=== PATIENT | male | born 1965 | race African-American/Black ===

== ENCOUNTER 2017-07-03 09:03 | Inpatient (IN) | payer OTHER ==
[2017-07-03] VITALS (40 sets, daily range): BP systolic 69–134; BP diastolic 44–75
[~2017-07-03] VITALS: Ht 182.9 cm; Wt 84.4 kg
--- NOTE | 2017-07-03 09:05 | NUR ---
[id number] [place] [address] [place] [address] FOR AMS. BS-[id number]. PATIENT IS NOT ALERT, RESPONDS TO PAINFUL STIMULI. BREATHING TACHYPNIC, ON NON-REBREATHER, 15L OXYGEN. SAFETY AND COMFORT MEASURES IN PLACE. AWAITING MD ORDERS.
--- NOTE | 2017-07-03 09:15 | NUR ---
NEW IV STARTED ON RIGHT HAND, 20G.
--- NOTE | 2017-07-03 09:20 | NUR ---
LOT BOSS AT BEDSIDE FOR BLOOD DRAW.
--- NOTE | 2017-07-03 09:25 | NUR ---
PER DR. PINTO, GIVE 2500ML IV NS. NS STARTED ON RIGHT HAND, 20G. IVPB, END TIME ESTIMATED 1155.
[2017-07-03 09:41] LABS: BASOPHILS % (AUTO) 0.2 % (0.0-2.0); HEMATOCRIT 30 % (39-51); HEMOGLOBIN 9.8 g/dL (13.5-17.5); LYMPHOCYTES % (AUTO) 8.4 % (20.0-44.0); MEAN CORPUSCULAR HGB CONC 33 g/dl (31.0-36.0); MEAN CORPUSCULAR VOLUME 87 fL (80-96); MONOCYTES # (AUTO) 0.5 /CMM (0.1-1.30); MONOCYTES % (AUTO) 4.5 % (2.0-12.0); NEUTROPHILS # (AUTO) 10.5 /CMM (1.8-8.9); NEUTROPHILS % (AUTO) 86.9 % (43.0-81.0); PLATELET COUNT (AUTO) 414 /CMM (150-450); RDW COEFFICIENT OF VARIATION 18.4 (11.5-15.0); RED BLOOD CELL COUNT(AUTO) 3.43 MIL/uL (4.5-6.0); WHITE BLOOD COUNT (AUTO) 12.1 K/uL (4.3-11.0)
[2017-07-03 09:51] LABS: CALCIUM, SERUM 8.9 mg/dL (8.5-10.1); CARBON DIOXIDE 26 mmol/L (21-32); CHLORIDE 103 mmol/L (98-107); GLUCOSE 177 mg/dL (74-106); SODIUM SERUM 139 mmol/L (136-145); UREA NITROGEN, BLOOD 38 mg/dL (7-18)
--- NOTE | 2017-07-03 09:55 | NUR ---
16 FR wylie catheter inserted per sterile protocal. Immediate output 225 ML of urine, donnell and clear.
[2017-07-03 09:56] LABS: ALANINE AMINOTRANSFERASE < 6 U/L (12-78); ALBUMIN 1.6 g/dL (3.4-5.0); ALKALINE PHOSPHATASE 83 U/L (46-116); ASPARTATE AMINOTRANSFERASE 15 U/L (15-37); BILIRUBIN,DIRECT 0.5 mg/dL (0.0-0.2); BILIRUBIN,TOTAL 1.3 mg/dL (0.2-1.0); TOTAL PROTEIN, SERUM 8.3 g/dL (6.4-8.2)
--- NOTE | 2017-07-03 09:56 | NUR ---
pbx technician at bedside
[2017-07-03 09:58] LABS: TROPONIN I < 0.017 ng/mL (0.00-0.056)
[2017-07-03 10:02] LABS: BAND % (MANUAL) 14 % (0.0-5.0); MONOCYTES % (MANUAL) 3 % (0-11.0)
[2017-07-03 10:03] LABS: INR 1.11 (0.87-1.13); LYMPHOCYTES % (MANUAL) 13 % (16-48); NEUTROPHILS % (MANUAL) 70 (42-76)
--- NOTE | 2017-07-03 10:06 | NUR ---
PATIENT TAKEN TO CT VIA STRETCHER.
[2017-07-03 10:10] LABS: APPEARANCE,URINE Clear (CLEAR); BILIRUBIN,URINE MODERATE (NEGATIVE); BLOOD, URINE Trace-lysed Ery/uL (NEGATIVE); COLOR,URINE Dark (YELLOW); KETONES,URINE Trace (NEGATIVE); LEUKOCYTE ESTERASE ,URINE Negative (NEGATIVE); NITRITE, URINE Negative (NEGATIVE); PH,URINE 5.5 (5.0-8.0); PROTEIN,URINE 100 mg/dl (NEGATIVE); UGLUCOSE Negative (NEGATIVE)
--- NOTE | 2017-07-03 10:17 | NUR ---
PATIENT RETURNED FROM CT IN SCAN IN STABLE CONDITION.
[2017-07-03 10:21] LABS: BACTERIA,URINE Rare /HPF (None Seen); RBC,URINE 0-2 /HPF (0-2); SQUAMOUS EPITHELIAL CELL,UR Few /HPF (None Seen); WBC,URINE 0-2 /HPF (0-3)
[2017-07-03] MEDS ORDERED: IV NS 0.9% 1,000 ML BAG IV ONE ×3 (10:30)
[2017-07-03] MEDS ORDERED: VANCOMYCIN 1 GM in IV D5W 250 ML IV ONE (10:30)
[2017-07-03] MEDS ORDERED: PIPERACILLIN /TAZOBACTAM 3.375 G in IV D5W 50 ML IV ONE (10:30)
[2017-07-03] MEDS ORDERED: ACETAMINOPHEN 650 MG/SUPP.RECT RC ONE ×2 (10:46→11:00)
[2017-07-03 11:20] LABS: ACETAMINOPHEN 0 ug/ml (10-30); SALICYLATE < 0.2 mg/dL (2.8-20.0)
--- NOTE | 2017-07-03 11:27 | NUR ---
CALLED NURSING MARBLE MECHANIC HELPER AND REQUESTED A BRUNA BED FOR THIS PT.
[2017-07-03] MEDS ORDERED: NALOXONE HCL 0.4 MG/ML AMPUL IV ONE (11:30)
--- NOTE | 2017-07-03 11:33 | NUR ---
CALLED [facility] FOR PANEL CALL AND BHARAT GARCIA WAS PAGED.
[2017-07-03] MEDS ORDERED: NALOXONE PREFILLED SYRINGE 2 MG/2 ML SYRINGE ONE (12:10)
--- NOTE | 2017-07-03 12:17 | NUR ---
CALLED NURSING SUP AND REQUESTED AN ICU BED
[2017-07-03] MEDS ORDERED: NOREPINEPHRINE 8 MG in IV D5W 500 ML IV PRN ×3 (12:30→19:35)
[2017-07-03 12:31] LABS: SERUM AMMONIA < 10 umol/L (11-32)
--- NOTE | 2017-07-03 12:31 | NUR ---
PT IS ASSIGNED TO ICU RM #: [id number], PT IS DIAGNOSED WITH SEPSIS, AND BHARAT GARCIA IS THE ACCEPTING DEVELOPMENT CHEMIST.
--- NOTE | 2017-07-03 12:42 | NUR ---
REPORT GIVEN TO KERRIE BAUTISTA FOR MANUEL UPON ADMISSION.
[2017-07-03 12:47] LABS: ABG BASE EXCESS -4.1 mmol/L; ABG OXYGEN SATURATION 94.4 % (92.0-98.5); ABG PCO2 23.3 mmHg (35.0-45.0); ABG PH 7.502 (7.350-7.450); ABG PO2 76.5 mmHg (75.0-100.0); AaDO2 325.7 mmHg; COHb 0.3 % (0.5-1.5); MetHb 0.5 % (0.0-1.5); O2Hb 93.6 % (94.0-97.0); SITE, ABG Left Brachial; VENT MODE, BG SIMPLE MASK
[2017-07-03] MEDS ORDERED: INSU100I30 SQ (12:58)
[2017-07-03] MEDS ORDERED: INSU100V27 SQ (12:58)
[2017-07-03] MEDS ORDERED: ATOR20TA PO (12:58)
[2017-07-03] MEDS ORDERED: CLOP75TA15 PO (12:58)
[2017-07-03] MEDS ORDERED: METF-442 PO (12:58)
[2017-07-03] MEDS ORDERED: QUET100T PO (12:58)
[2017-07-03] MEDS ORDERED: TRAM50TA2 PO (12:58)
[2017-07-03] MEDS ORDERED: ACET325C5 PO (12:58)
[2017-07-03] MEDS ORDERED: CARV6.25 PO (12:58)
[2017-07-03] MEDS ORDERED: DIVA500T4 PO (12:58)
[2017-07-03] MEDS ORDERED: GABA-532 PO (12:58)
[2017-07-03] MEDS ORDERED: MORPHINE SULFATE INJ 4 MG/ML DISP.SYRIN IV PRN (13:00)
[2017-07-03] MEDS ORDERED: FEE PK DOSING 1 MIN EA MC ONE (13:04)
--- NOTE | 2017-07-03 13:10 | NUR ---
PATIENT ADMITTED FROM ER WITH DIAGNOSIS OF SEVERE SEPSIS, ACUTE RESPIRATORY DISTRESS. PATIENT AWAKE, FOLLOWS SIMPLE COMMANDS , MUMBLES WORDS. 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 O2 AT 10 L SM-SPO2 >94%.PATIENT SEEN AND EVALUATED BY BHARAT GARCIA ADMITTING [facility]. PATIENT SEEN AND EVALUATED BY DR. BRIGHT, ABG RESULTS FROM ER NOTED BY MD-PER -SURINDER TO KEEP PATIENT ON 10 L SM.
--- NOTE | 2017-07-03 13:10 | NUR ---
PATIENT TRANSPORTED TO ICU 258 VIA ACLS PROTOCOL. RNKERRIE TO PROVIDE MANUEL.
[2017-07-03] MEDS: IV NS 0.9% 1,000 ML IV PRN ×2 (13:21→21:28)
[2017-07-03] MEDS ORDERED: ALBUTEROL HALF STRENGTH 1.25 MG/3 ML VIAL.NEB NEB SCH (13:30)
[2017-07-03] MEDS ORDERED: ENOXAPARIN SODIUM 80 MG/0.8 ML DISP.SYRIN SQ SCH (14:00)
[2017-07-03] MEDS: ALBUTEROL HALF STRENGTH 1.25 MG/3 ML VIAL.NEB NEB SCH ×3 (15:25→23:41)
[2017-07-03] MEDS: IPRATROPIUM NEB FS 0.5 MG/2.5 ML AMPUL.NEB NEB SCH ×3 (15:25→23:41)
--- NOTE | 2017-07-03 16:00 | NUR ---
BLE DUPLEX STUDY NEGATIVE. LOVENOX DECREASED TO PROPHYLAXIS DOSE PER DR. BRIGHT ORDER.
[2017-07-03] MEDS: PIPERACILLIN /TAZOBACTAM 3.375 G in IV D5W 50 ML IV SCH ×2 (17:58→23:50)
--- NOTE | 2017-07-03 18:05 | NUR ---
BHARAT GARCIA ACNP AT BEDSIDE. D/C CT PULMO ANGIO. INCREASED IVF TO 125 MLS/HR.
--- NOTE | 2017-07-03 19:33 | NUR ---
SEASONAL CLERK NOTES - LEVOPHED BP 69/44, LEVOPHED DRIP INITIATED, IV SITE FLUSHED, PATENT AND INTACT, FREE FROM ANY S/S OF INFILTRATION OR PHLEBITIS. NOTIFIED BILL COTO NP, OBTAINED ORDER FOR CENTRAL LINE INSERTION. CHARGE NURSE ED MADE AWARE, NURSING TOBACCO SPRAYER MADE AWARE. WILL CONTINUE TO CLOSELY MONITOR Addendum: 07/04/17 at 0139 by DILSHAD SPEARS RN PER COMMODITIES TRADER SE, NOBODY AVAILABLE TO INSERT CENTRAL LINE. RIGHT FOREARM #20 GAUGE ASSESSED FREQUENTLY, SITE PATENT AND INTACT, FREE FROM ANY S/S OF INFILTRATION, PHLEBITIS, OR EXTRAVASATION
--- NOTE | 2017-07-03 20:53 | NUR ---
PT RECEIVED ON SM 8L, O2 SAT 100%. NO SOB. B/S DIMINISHED BILAT. PT IS RECEIVING Q4 BREATHING TX. WILL CONTINUE TO MONITOR. Addendum: 07/03/17 at 2054 by HUNG HARPER RT Amended: Links added.
--- NOTE | 2017-07-03 21:00 | NUR ---
CLERGY MEMBER NOTES RIGHT FOREARM #20G FLUSHED WITH NS, PATENT AND INTACT, FREE FROM ANY S/S OF INFILTRATION OR PHLEBITIS. WILL CONTINUE TO CLOSELY MONITOR
[2017-07-04] VITALS (70 sets, daily range): BP systolic 82–131; BP diastolic 54–100
--- NOTE | 2017-07-04 | NUR ---
DIRECTOR AUTO NOTES RIGHT FOREARM PERIPHERAL IV #20 GAUGE FLUSHED WITH NS, PATENT AND INTACT, FREE FROM ANY S/S OF INFILTRATION, PHLEBITIS, OR EXTRAVASATION. LEVOPHED DRIP ONGOING, WILL CONTINUE TO CLOSELY MONITOR THE IV SITE
[2017-07-04] MEDS: IPRATROPIUM NEB FS 0.5 MG/2.5 ML AMPUL.NEB NEB SCH ×5 (03:26→20:23)
[2017-07-04] MEDS: ALBUTEROL HALF STRENGTH 1.25 MG/3 ML VIAL.NEB NEB SCH ×5 (03:26→20:23)
[2017-07-04] MEDS ORDERED: VANCOMYCIN 1 GM in IV D5W 250 ML IV SCH (05:00)
[2017-07-04] MEDS: IV NS 0.9% 1,000 ML IV PRN ×2 (05:09→21:24)
[2017-07-04 05:33] LABS: ALBUMIN 1.5 g/dL (3.4-5.0); BILIRUBIN,TOTAL 0.8 mg/dL (0.2-1.0); CALCIUM, SERUM 8.4 mg/dL (8.5-10.1); CREATININE 1.3 mg/dL (0.6-1.3); MAGNESIUM 1.3 mg/dL (1.8-2.4); PHOSPHORUS 3.1 mg/dL (2.5-4.9); POTASSIUM 3.5 mmol/L (3.5-5.1); TOTAL PROTEIN, SERUM 7.8 g/dL (6.4-8.2)
[2017-07-04 05:50] LABS: THYROID STIMULATING HORMONE 1.276 uIU/mL (0.358-3.74)
[2017-07-04] MEDS: PIPERACILLIN /TAZOBACTAM 3.375 G in IV D5W 50 ML IV SCH ×3 (06:21→17:46)
--- NOTE | 2017-07-04 06:45 | NUR ---
SKILLED LABOR CLOSING NOTES PATIENT RESTING IN BED, APPEARS COMFORTABLE. LEVOPHED TITRATED DOWN THROUGHOUT SHIFT, TURNED OFF @ 0645 FOR BP 131/70. RIGHT FOREARM #20 GAUGE PATENT AND INTACT, FREE FROM ANY S/S OF INFILTRATION OR PHLEBITIS. WILL ENDORSE THE PATIENT TO THE AM SHIFT NURSE FOR CONTINUITY OF CARE
--- NOTE | 2017-07-04 07:40 | NUR ---
ICU/RN PT IS IN THE BED ON SIMPLE MASK 6L,SAT O2-100%.V/S STABLE.AFEBRILE.OFF LEVOPHED.NO PAIN REPORTED AT THIS TIME.PERIFERAL IV ON.IV INFUSING ORDERED.F/C DRAINING WITH YELLOW URINE.PT IS POST CVA LEFT SIDE WEAKNESS .LEFT FOOT COVERED WITH DRESSING.REPOSITION FOR COMFORT.
[2017-07-04] MEDS: CLOPIDOGREL BISULFATE 75 MG TABLET PO SCH (08:25)
[2017-07-04] MEDS: PANTOPRAZOLE 40 MG VIAL IV SCH (08:25)
[2017-07-04] MEDS: CARVEDILOL 6.25 MG TABLET PO SCH ×2 (08:25→20:09)
[2017-07-04] MEDS: QUETIAPINE FUMARATE 100 MG TABLET PO SCH ×2 (08:25→17:47)
[2017-07-04] MEDS: ASPIRIN EC 81 MG TABLET.DR PO SCH (08:25)
[2017-07-04] MEDS: DIVALPROEX SODIUM 500 MG TABLET.DR PO SCH ×2 (08:25→17:47)
[2017-07-04] MEDS: ENOXAPARIN SODIUM 40 MG/0.4 ML DISP.SYRIN SQ SCH (08:26)
[2017-07-04] MEDS ORDERED: GABAPENTIN 100 MG CAPSULE PO SCH (09:00)
--- NOTE | 2017-07-04 09:00 | NUR ---
ICU/RN PT PLACED ON 3L N/C ,SAT O2-100%.V/S STABLE.WATER WAS GIVEN .DUE MEDS ARE GIVEN ORDERED.PT SWALLOW OK.LABS REVIEW. NOTIFIED.MG -1.3. NEW ORDERS RECEIVED.PT IS AGITATED,SCREAMING . DR AZAR NOTIFIED.
[2017-07-04] MEDS: Magnesium 1GM/D5W 100ML PREMIX 100 ML IV SCH ×3 (09:53→12:12)
[2017-07-04] MEDS: GABAPENTIN 300 MG CAPSULE PO SCH ×2 (12:26→17:47)
[2017-07-04] MEDS: ACETAMINOPHEN 325 MG TABLET PO PRN (12:29)
[2017-07-04] MEDS ORDERED: DEXTROSE 50%-WATER 50 ML DISP.SYRIN IV PRN (12:30)
[2017-07-04] MEDS ORDERED: IV NS 0.9% 1,000 ML BAG IV ONE (13:30)
[2017-07-04] MEDS: BLOOD SUGAR DIAGNOSTIC 1 EACH STRIP IN SCH ×2 (14:46→21:30)
[2017-07-04 15:27] LABS: BASOPHILS % (AUTO) 0.1 % (0.0-2.0); EOSINOPHILS % (AUTO) 0.2 % (0.0-6.0); HEMATOCRIT 23 % (39-51); HEMOGLOBIN 7.5 g/dL (13.5-17.5); LYMPHOCYTES # (AUTO) 1.2 /CMM (0.8-4.8); LYMPHOCYTES % (AUTO) 9.8 % (20.0-44.0); MEAN CORPUSCULAR HGB CONC 33 g/dl (31.0-36.0); MEAN CORPUSCULAR VOLUME 87 fL (80-96); MONOCYTES # (AUTO) 1.1 /CMM (0.1-1.30); NEUTROPHILS # (AUTO) 10.2 /CMM (1.8-8.9); NEUTROPHILS % (AUTO) 80.9 % (43.0-81.0); PLATELET COUNT (AUTO) 292 /CMM (150-450); RDW COEFFICIENT OF VARIATION 17.5 (11.5-15.0); RED BLOOD CELL COUNT(AUTO) 2.65 MIL/uL (4.5-6.0); WHITE BLOOD COUNT (AUTO) 12.6 K/uL (4.3-11.0)
[2017-07-04 16:16] LABS: NEUTROPHILS % (MANUAL) 71 (42-76)
[2017-07-04 16:17] LABS: BAND % (MANUAL) 12 % (0.0-5.0); BASOPHILS % (MANUAL) 0 % (0.0-2.0); EOSINOPHILS % (MANUAL) 0 % (0-4); LYMPHOCYTES % (MANUAL) 12 % (16-48); MONOCYTES % (MANUAL) 5 % (0-11.0)
[2017-07-04] MEDS: VANCOMYCIN 1 GM in IV D5W 250 ML IV SCH (17:46)
[2017-07-04] MEDS: INSULIN REGULAR, HUMAN 100 UNIT/ML 3 ML VIAL SQ PRN (18:07)
--- NOTE | 2017-07-04 19:30 | NUR ---
APRON TRIMMER INITIAL NOTES RECEIVED PATIENT IN BED, SLEEPING, EASILY AROUSABLE, BUT REMAINS LETHARGIC. BREATHING EVEN AND NONLABORED, BUT NOTED TO DESATURATE TO 89% WHILE ON O2 VIA NC @ 2LPM. O2 TITRATED TO 4L TO ACHIEVE SPO2 > 92%. ON TELEMETRY MONITORING, REVEALING SINUS RHYTHM, 97 BPM AT THIS TIME. AMBUBAG AT BEDSIDE. CONNER PICC PATENT AND INTACT, FLUSHED WITH NS, IVF NS @ 150ML/HR INFUSING PRESCRIBED. RIGHT FOREARM #20 GAUGE PATENT DN INTACT, FLUSHED WITH NS, SL. UNDERWOOD CATHETER PATENT AND INTACT, DRAINING CLEAR VENECIA COLORED URINE BY GRAVITY. PATIENT REPOSITIONED FOR COMFORT. WILL CONTINUE TO CLOSELY MONITOR
[2017-07-04] MEDS: Z GUARD REMEDY 2 OZ OINT TP SCH (20:12)
[2017-07-04] MEDS: INSULIN GLARGINE, 100 UNIT/ML CARTRIDGE SQ SCH (21:31)
[2017-07-04] MEDS: ATORVASTATIN 10 MG TABLET PO SCH (21:41)
[2017-07-04] MEDS: MUPIROCIN OINT 2% 22 GM TUBE SCH (21:41)
--- NOTE | 2017-07-04 21:42 | NUR ---
WATER TREATMENT OPERATOR NOTES PATIENT WITH POOR APPETITE. ATTEMPTED TO FEED PATIENT, BUT HE STRONGLY REFUSED. BS 117, NO COVERAGE PER ISS. LANTUS HELD SINCE PATIENT REFUSED TO EAT. WILL OCNITNUE TO CLOSELY MONITOR
[2017-07-05] VITALS (35 sets, daily range): BP systolic 85–131; BP diastolic 57–85
[2017-07-05] MEDS: IPRATROPIUM NEB FS 0.5 MG/2.5 ML AMPUL.NEB NEB SCH ×8 (00:27→23:21)
[2017-07-05] MEDS: ALBUTEROL HALF STRENGTH 1.25 MG/3 ML VIAL.NEB NEB SCH ×7 (00:27→23:21)
[2017-07-05] MEDS: PIPERACILLIN /TAZOBACTAM 3.375 G in IV D5W 50 ML IV SCH ×5 (00:42→23:46)
[2017-07-05 01:26] LABS: BASOPHILS # (AUTO) 0.1 /CMM (0.0-0.2); BASOPHILS % (AUTO) 0.5 % (0.0-2.0); EOSINOPHILS % (AUTO) 1.7 % (0.0-6.0); HEMATOCRIT 23 % (39-51); HEMOGLOBIN 7.4 g/dL (13.5-17.5); LYMPHOCYTES # (AUTO) 1.7 /CMM (0.8-4.8); LYMPHOCYTES % (AUTO) 12.7 % (20.0-44.0); MEAN CORPUSCULAR HGB CONC 33 g/dl (31.0-36.0); MEAN CORPUSCULAR VOLUME 87 fL (80-96); MONOCYTES # (AUTO) 1.1 /CMM (0.1-1.30); MONOCYTES % (AUTO) 8.7 % (2.0-12.0); NEUTROPHILS % (AUTO) 76.4 % (43.0-81.0); PLATELET COUNT (AUTO) 294 /CMM (150-450); RDW COEFFICIENT OF VARIATION 17.2 (11.5-15.0); RED BLOOD CELL COUNT(AUTO) 2.59 MIL/uL (4.5-6.0); WHITE BLOOD COUNT (AUTO) 13.1 K/uL (4.3-11.0)
[2017-07-05 01:49] LABS: NEUTROPHILS % (MANUAL) 66 (42-76)
[2017-07-05 01:50] LABS: BAND % (MANUAL) 10 % (0.0-5.0); EOSINOPHILS % (MANUAL) 2 % (0-4); LYMPHOCYTES % (MANUAL) 15 % (16-48); MONOCYTES % (MANUAL) 7 % (0-11.0)
--- NOTE | 2017-07-05 02:15 | NUR ---
LAUNDRY PRESS OPERATOR NOTES OBTAINED CONSENT FOR BLOOD TRANSFUSION FROM PATIENT. PATIENT UNABLE TO SIGN DUE TO MEDICAL CONDITION, BUT GIVES VERBAL CONSENT, WITNESSED BY CHARGE NURSE OSMAR AND MYSELF. WILL CONTINUE TO CLOSELY MONITOR, AND TRANSFUSE PRBC WHEN READY
--- NOTE | 2017-07-05 03:40 | NUR ---
HOME CARE GIVER NOTES BILL COTO MADE AWARE OF BLOOD TRANSFUSION ORDER FOR 1 UNIT PRBCs. LATEST LAB WORKS RELAYED TO BILL, WITH ORDER TO HOLD BLOOD TRANSFUSION AT THIS TIME DUE TO PATIENT SHOWING NO S/S OF OVERT GI BLEEDING. WILL COLLECT STOOL TO TEST FOR OB WHEN PATIENT HAS BM Addendum: 07/05/17 at 0656 by DISLHAD SPEARS RN HGB 7.4
[2017-07-05 04:33] LABS: BASOPHILS # (AUTO) 0.1 /CMM (0.0-0.2); BASOPHILS % (AUTO) 0.5 % (0.0-2.0); EOSINOPHILS % (AUTO) 2.2 % (0.0-6.0); HEMATOCRIT 22 % (39-51); HEMOGLOBIN 7.4 g/dL (13.5-17.5); LYMPHOCYTES # (AUTO) 1.8 /CMM (0.8-4.8); LYMPHOCYTES % (AUTO) 13.8 % (20.0-44.0); MEAN CORPUSCULAR HGB CONC 33 g/dl (31.0-36.0); MEAN CORPUSCULAR VOLUME 88 fL (80-96); MONOCYTES # (AUTO) 0.9 /CMM (0.1-1.30); MONOCYTES % (AUTO) 6.6 % (2.0-12.0); NEUTROPHILS # (AUTO) 10.3 /CMM (1.8-8.9); NEUTROPHILS % (AUTO) 76.9 % (43.0-81.0); PLATELET COUNT (AUTO) 324 /CMM (150-450); RDW COEFFICIENT OF VARIATION 17.4 (11.5-15.0); RED BLOOD CELL COUNT(AUTO) 2.54 MIL/uL (4.5-6.0); WHITE BLOOD COUNT (AUTO) 13.3 K/uL (4.3-11.0)
[2017-07-05] MEDS: VANCOMYCIN 1 GM in IV D5W 250 ML IV SCH ×2 (04:36→17:31)
[2017-07-05 04:49] LABS: CREATININE 0.9 mg/dL (0.6-1.3); MAGNESIUM 1.8 mg/dL (1.8-2.4); PHOSPHORUS 2.8 mg/dL (2.5-4.9); POTASSIUM 3.3 mmol/L (3.5-5.1)
--- NOTE | 2017-07-05 06:56 | NUR ---
SODDER CLOSING NOTES PATIENT SLEEPING IN BED, NO ACUTE CHANGES THROUGHOUT THE SHIFT. WILL ENDORSE THE PATIENT TO THE AM SHIFT NURSE FOR CONTINUITY OF CARE
[2017-07-05] MEDS: PANTOPRAZOLE 40 MG VIAL IV SCH (08:31)
[2017-07-05] MEDS: ASPIRIN EC 81 MG TABLET.DR PO SCH (08:31)
[2017-07-05] MEDS: DIVALPROEX SODIUM 500 MG TABLET.DR PO SCH ×2 (08:31→17:31)
[2017-07-05] MEDS: CARVEDILOL 6.25 MG TABLET PO SCH ×2 (08:31→21:00)
[2017-07-05] MEDS: GABAPENTIN 300 MG CAPSULE PO SCH ×3 (08:31→17:31)
[2017-07-05] MEDS: MUPIROCIN OINT 2% 22 GM TUBE SCH ×2 (08:32→21:11)
[2017-07-05] MEDS: CLOPIDOGREL BISULFATE 75 MG TABLET PO SCH (08:32)
[2017-07-05] MEDS: Z GUARD REMEDY 2 OZ OINT TP SCH ×2 (08:32→21:11)
[2017-07-05] MEDS: QUETIAPINE FUMARATE 100 MG TABLET PO SCH ×2 (08:35→17:31)
[2017-07-05] MEDS: ENOXAPARIN SODIUM 40 MG/0.4 ML DISP.SYRIN SQ SCH (08:36)
--- NOTE | 2017-07-05 09:00 | NUR ---
PT IS ALERT, FOLLOWS COMMANDS. DENIES PAIN. VSS, OFF PRESSORS. ASSISTED WITH AM HYGIENE AND BREAKFAST.
[2017-07-05] MEDS ORDERED: POTASSIUM CHLORIDE 20 MEQ POWDER PACKET PO ONE ×2 (10:00→10:30)
[2017-07-05] MEDS ORDERED: POTASSIUM CHLORIDE 10 MEQ TABLET.SA PO ONE (11:00)
--- NOTE | 2017-07-05 11:39 | NUR ---
WOUND CARE CONSULT: PT PRESENTS WITH MULTIPLE SKIN ISSUES INCLUDING WOUND TO LEFT HEEL AND LEFT ANKLE, DISCOLORATION AND THICKENED SKIN TO RT FOOT, LARGE SKIN TAG TO RT BUTTOCK, SACRAL SCARRING, LEFT BUTTOCK STAGE 2 ULCER, ALL PRESENT ON ADMISSION. PT ON FIRST STEP MATTRESS. ALL SKIN PROTECTION AND WOUND CARE RECOMMENDATIONS DISCUSSED WITH NURSING STAFF. RECOMMEND PODIATRY CONSULT. WILL SEE PRN. DILLON IN AGREEMENT WITH PLAN OF CARE. PER NURSING STAFF, PT UNCOOPERATIVE AND AGITATED AT TIMES. Addendum: 07/05/17 at 1141 by DAVID KRAFT WNDNU Amended: Links added.
[2017-07-05] MEDS ORDERED: HYDROGEL DRESSING 90 GM TUBE TP PRN (12:00)
[2017-07-05] MEDS: CADEXOMER IODINE 40 GM TUBE TP SCH (12:00)
--- NOTE | 2017-07-05 12:00 | NUR ---
PT SEEN BY DR GONZALEZ. SKIN CARE ORDERED BY DR. GONZALEZ. CULTURES SENT.
[2017-07-05] MEDS: HYDROGEL DRESSING 90 GM TUBE TP SCH (16:10)
[2017-07-05] MEDS: IV NS 0.9% 1,000 ML IV PRN ×2 (16:12→18:53)
--- NOTE | 2017-07-05 19:45 | NUR ---
PT TRANSFERED TO ROOM 319. VSS, DENIES PAIN DENIES SOB. REPORT TO MICHELE MARIN.
--- NOTE | 2017-07-05 19:50 | NUR ---
ASSISTANT OFFICE MANAGER INITIAL NOTE PT WAS TRANSFERRED FROM ICU VIA GURNEY. A/O X2, SPEECH IS SLIGHTLY SLURRED OBEYS SIMPLE COMMANDS. NO SIGNS OF SOB OR DISTRESS, BREATHING EVENLY AND UNLABORED ON RA SATING AT 96%. DENIES PAIN AT THIS TIME. LEFT SIDED WEAKNESS NOTED. CULTURES WERE COLLECTED BY ICU NURSE. MEDS TO BE CRUSHED. BED IS IN LOW AND LOCKED POSITION, CALL LIGHT WITHIN REACH. WILL CONTINUE TO MONITOR PT.
[2017-07-05] MEDS ORDERED: MUPIROCIN OINT 2% 22 GM TUBE SCH (21:00)
[2017-07-05] MEDS: BLOOD SUGAR DIAGNOSTIC 1 EACH STRIP IN SCH (21:12)
[2017-07-05] MEDS: ATORVASTATIN 10 MG TABLET PO SCH (21:12)
[2017-07-05] MEDS: INSULIN GLARGINE, 100 UNIT/ML CARTRIDGE SQ SCH (21:13)
[2017-07-06] MEDS: IPRATROPIUM NEB FS 0.5 MG/2.5 ML AMPUL.NEB NEB SCH ×6 (03:15→23:30)
[2017-07-06] MEDS: ALBUTEROL HALF STRENGTH 1.25 MG/3 ML VIAL.NEB NEB SCH ×6 (03:15→23:30)
[2017-07-06] MEDS: IV NS 0.9% 1,000 ML IV PRN ×3 (03:36→22:31)
[2017-07-06] MEDS: VANCOMYCIN 1 GM in IV D5W 250 ML IV SCH ×2 (04:04→17:21)
[2017-07-06] MEDS: PIPERACILLIN /TAZOBACTAM 3.375 G in IV D5W 50 ML IV SCH (05:11)
[2017-07-06 06:52] LABS: BASOPHILS % (AUTO) 0.5 % (0.0-2.0); EOSINOPHILS % (AUTO) 3.8 % (0.0-6.0); HEMATOCRIT 25 % (39-51); HEMOGLOBIN 8.2 g/dL (13.5-17.5); LYMPHOCYTES # (AUTO) 1.3 /CMM (0.8-4.8); LYMPHOCYTES % (AUTO) 14.1 % (20.0-44.0); MEAN CORPUSCULAR HGB CONC 33 g/dl (31.0-36.0); MEAN CORPUSCULAR VOLUME 87 fL (80-96); MONOCYTES % (AUTO) 10.9 % (2.0-12.0); NEUTROPHILS # (AUTO) 6.7 /CMM (1.8-8.9); NEUTROPHILS % (AUTO) 70.7 % (43.0-81.0); PLATELET COUNT (AUTO) 300 /CMM (150-450); RDW COEFFICIENT OF VARIATION 16.9 (11.5-15.0); RED BLOOD CELL COUNT(AUTO) 2.83 MIL/uL (4.5-6.0); WHITE BLOOD COUNT (AUTO) 9.5 K/uL (4.3-11.0)
--- NOTE | 2017-07-06 06:52 | NUR ---
MUSIC STORE MANAGER CLOSING NOTE PT IS IN BED RESTING, WITH BLANKET OVER HIS HEAD. NO SIGNS OF SOB OR DISTRESS, BREATHING EVENLY AND UNLABORED ON 2L NC. IV ACCESS IS INTACT AND PATENT. UNDERWOOD CATH IS INTACT AND DRAINING. NO ACUTE CHANGES THROUGHOUT THE SHIFT. BED IS IN LOW AND LOCKED POSITION, CALL LIGHT WITHIN REACH. WILL ENDORSE TO DAYSHIFT
[2017-07-06 07:07] LABS: CALCIUM, SERUM 7.8 mg/dL (8.5-10.1); CREATININE 0.8 mg/dL (0.6-1.3); MAGNESIUM 1.5 mg/dL (1.8-2.4); PHOSPHORUS 2.8 mg/dL (2.5-4.9); POTASSIUM 3.3 mmol/L (3.5-5.1)
--- NOTE | 2017-07-06 08:00 | NUR ---
PT IS IN BED RESTING. NO SIGNS OF SOB OR DISTRESS, BREATHING ON 2L NC. IV ACCESS IS INTACT AND PATENT. UNDERWOOD CATH IS INTACT AND DRAINING. . BED IS IN LOW AND LOCKED POSITION, CALL LIGHT WITHIN REACH. PT HAS POOR APPETITE .ENCOURAGED PT TO INCREASE INTAKE OF FOOD AND FLUID Addendum: 07/06/17 at 1234 by AMAN HARDING RN PT ON MRSA NARES CONTACT ISOLATION PRECAUTIONS
--- NOTE | 2017-07-06 08:15 | NUR ---
PT CONFUSED AND NEED ASSISTANCE WITH FEEDING. ASSISTED HIM WITH BREAKFAST.
[2017-07-06] MEDS: CLOPIDOGREL BISULFATE 75 MG TABLET PO SCH (09:09)
[2017-07-06] MEDS: LACTOBACILLUS RHAMNOSUS GG 1 EACH CAP.SPRINK PO SCH ×2 (09:09→17:22)
[2017-07-06] MEDS: GABAPENTIN 300 MG CAPSULE PO SCH ×3 (09:09→17:21)
[2017-07-06] MEDS: CARVEDILOL 6.25 MG TABLET PO SCH ×2 (09:11→21:13)
[2017-07-06] MEDS: ASPIRIN EC 81 MG TABLET.DR PO SCH (09:11)
[2017-07-06] MEDS: QUETIAPINE FUMARATE 100 MG TABLET PO SCH ×2 (09:11→17:22)
[2017-07-06] MEDS: DIVALPROEX SODIUM 500 MG TABLET.DR PO SCH ×2 (09:11→17:21)
[2017-07-06] MEDS: ENOXAPARIN SODIUM 40 MG/0.4 ML DISP.SYRIN SQ SCH (09:13)
[2017-07-06] MEDS: PANTOPRAZOLE 40 MG VIAL IV SCH (09:14)
[2017-07-06] MEDS: DAKINS QUARTER STRENGTH (0.125%) 480 ML BOTTLE TOP SCH (09:24)
[2017-07-06] MEDS: HYDROGEL DRESSING 90 GM TUBE TP SCH (09:25)
[2017-07-06] MEDS: MUPIROCIN OINT 2% 22 GM TUBE SCH ×2 (09:25→21:14)
[2017-07-06] MEDS: Z GUARD REMEDY 2 OZ OINT TP SCH ×2 (09:25→21:15)
[2017-07-06] MEDS: CADEXOMER IODINE 40 GM TUBE TP SCH ×2 (09:26)
[2017-07-06] MEDS ORDERED: POTASSIUM CHLORIDE 20 MEQ TAB.PRT.SR PO SCH (11:00)
[2017-07-06] MEDS: Magnesium 1GM/D5W 100ML PREMIX 100 ML IV SCH ×2 (11:18→12:16)
[2017-07-06 11:36] VITALS: BP 127/64
[2017-07-06] MEDS: CEFEPIME 1 GM in IV D5W 50 ML IV SCH ×2 (13:43→21:09)
[2017-07-06 16:00] VITALS: BP 132/68
--- NOTE | 2017-07-06 18:30 | NUR ---
MS RN CLOSING NOTES PT IS IN BED RESTING, WITH BLANKET OVER HIS HEAD.PT CONFUSED AND NEED ASSISTANCE WITH FEEDING.PT REFUSED DINNER SAYING HE DOESN'T IT MUCH. NO SIGNS OF SOB OR DISTRESS.PT ON 2L NC. IV ACCESS IS INTACT AND PATENT. UNDERWOOD CATH IS INTACT AND DRAINING. NO ACUTE CHANGES THROUGHOUT THE SHIFT. BED IS IN LOW AND LOCKED POSITION, CALL LIGHT WITHIN REACH.
--- NOTE | 2017-07-06 19:30 | NUR ---
RECEIVED PATIENT IN BED WITH EYES CLOSE, EASILY AROUSABLE. AO X 2, ABLE TO MAKE NEEDS KNOWN. NO ACUTE DISTRESS NOTED. DENIES ANY PAIN AT THIS TIME. IV SITES PATENT, INTACT. IVF INFUSING INTO CONNER PICC LINE ORDERED. UNDERWOOD CATH PATENT, INTACT; DRAINING CLEAR YELLOW URINE. SAFETY REMINDERS GIVEN. ON LOW BED WITH BILATERAL UPPER SIDE RAILS UP. CALL VILLAVICENCIO WITHIN EASY REACH. WILL CONTINUE TO MONITOR.
[2017-07-06 20:00] VITALS: BP 147/84
[2017-07-06] MEDS: ATORVASTATIN 10 MG TABLET PO SCH (21:14)
[2017-07-06] MEDS: BLOOD SUGAR DIAGNOSTIC 1 EACH STRIP IN SCH (21:57)
[2017-07-06] MEDS: INSULIN GLARGINE, 100 UNIT/ML CARTRIDGE SQ SCH (21:58)
--- NOTE | 2017-07-06 21:58 | NUR ---
BLOOD SUGAR = 99. PATIENT REFUSED SNACK. ABHINAV HELD.
[2017-07-07] MEDS: IPRATROPIUM NEB FS 0.5 MG/2.5 ML AMPUL.NEB NEB SCH ×6 (03:30→23:30)
[2017-07-07] MEDS: ALBUTEROL HALF STRENGTH 1.25 MG/3 ML VIAL.NEB NEB SCH ×6 (03:30→23:30)
[2017-07-07] MEDS: ACETAMINOPHEN 325 MG TABLET PO PRN ×2 (03:42→18:05)
[2017-07-07] MEDS: CEFEPIME 1 GM in IV D5W 50 ML IV SCH ×3 (04:18→20:37)
[2017-07-07] MEDS: VANCOMYCIN 1 GM in IV D5W 250 ML IV SCH ×2 (05:09→18:05)
[2017-07-07] MEDS: IV NS 0.9% 1,000 ML IV PRN ×2 (05:54→20:37)
--- NOTE | 2017-07-07 06:09 | NUR ---
PATIENT ASLEEP, EASILY AROUSABLE. RESPIRATIONS EVEN. NO SIGNS OF PAIN NOTED. NO SYMPTOMS OF HYPER/HYPOGLYCEMIA. DUE MEDS GIVEN WITH NO ASE NOTED. NEEDS ATTENDED. KEPT CLEAN, DRY, AND COMFORTABLE. CONTACT ISOLATION FOR MRSA NARES MAINTAINED. SAFETY PRECAUTIONS AND COMFORT MEASURES IN PLACE. WILL GIVE REPORT TO DAY SHIFT FOR CONTINUITY OF CARE.
[2017-07-07 06:51] LABS: BASOPHILS % (AUTO) 0.4 % (0.0-2.0); EOSINOPHILS % (AUTO) 5.3 % (0.0-6.0); HEMATOCRIT 24 % (39-51); HEMOGLOBIN 7.9 g/dL (13.5-17.5); LYMPHOCYTES % (AUTO) 20.3 % (20.0-44.0); MEAN CORPUSCULAR HGB CONC 34 g/dl (31.0-36.0); MEAN CORPUSCULAR VOLUME 87 fL (80-96); MONOCYTES # (AUTO) 0.7 /CMM (0.1-1.30); MONOCYTES % (AUTO) 7.4 % (2.0-12.0); NEUTROPHILS # (AUTO) 6.7 /CMM (1.8-8.9); NEUTROPHILS % (AUTO) 66.6 % (43.0-81.0); PLATELET COUNT (AUTO) 310 /CMM (150-450); RDW COEFFICIENT OF VARIATION 16.8 (11.5-15.0); RED BLOOD CELL COUNT(AUTO) 2.73 MIL/uL (4.5-6.0)
[2017-07-07 07:26] LABS: CALCIUM, SERUM 7.7 mg/dL (8.5-10.1); CREATININE 0.8 mg/dL (0.6-1.3); MAGNESIUM 1.5 mg/dL (1.8-2.4); PHOSPHORUS 2.4 mg/dL (2.5-4.9); POTASSIUM 3.2 mmol/L (3.5-5.1)
[2017-07-07 08:00] VITALS: BP 117/71
[2017-07-07] MEDS: PANTOPRAZOLE 40 MG VIAL IV SCH (08:38)
[2017-07-07] MEDS: LACTOBACILLUS RHAMNOSUS GG 1 EACH CAP.SPRINK PO SCH ×2 (08:38→18:05)
[2017-07-07] MEDS: DIVALPROEX SODIUM 500 MG TABLET.DR PO SCH ×2 (08:38→18:06)
[2017-07-07] MEDS: QUETIAPINE FUMARATE 100 MG TABLET PO SCH ×2 (08:38→18:05)
[2017-07-07] MEDS: GABAPENTIN 300 MG CAPSULE PO SCH ×3 (08:39→18:05)
[2017-07-07] MEDS: ASPIRIN EC 81 MG TABLET.DR PO SCH (08:39)
[2017-07-07] MEDS: CARVEDILOL 6.25 MG TABLET PO SCH ×2 (08:40→20:37)
[2017-07-07] MEDS: CLOPIDOGREL BISULFATE 75 MG TABLET PO SCH (08:40)
[2017-07-07] MEDS: ENOXAPARIN SODIUM 40 MG/0.4 ML DISP.SYRIN SQ SCH (08:41)
[2017-07-07] MEDS: DAKINS QUARTER STRENGTH (0.125%) 480 ML BOTTLE TOP SCH (08:44)
[2017-07-07] MEDS: CADEXOMER IODINE 40 GM TUBE TP SCH ×2 (08:44→08:45)
[2017-07-07] MEDS: Z GUARD REMEDY 2 OZ OINT TP SCH ×2 (08:44→20:51)
[2017-07-07] MEDS: MUPIROCIN OINT 2% 22 GM TUBE SCH ×2 (08:44→20:51)
[2017-07-07] MEDS: HYDROGEL DRESSING 90 GM TUBE TP SCH (08:47)
[2017-07-07] MEDS ORDERED: POTASSIUM CHLORIDE 20 MEQ TAB.PRT.SR PO ONE (09:00)
[2017-07-07] MEDS ORDERED: POTASSIUM CHLORIDE 10 MEQ/50 ML PREMIXED IVPB FOR PERIPHERAL LINE IV ONE (09:00)
[2017-07-07] MEDS: Magnesium 1GM/D5W 100ML PREMIX 100 ML IV SCH ×4 (09:42→14:52)
--- NOTE | 2017-07-07 10:07 | NUR ---
CLARIFIED POTASSIUM 40 MEQ PO AND KCL 1V [address] CAAL WHO STATED THAT IT'S OK TO ADMINISTER BOTH SAYING SHE WANTS TO GIVE AGGRESSIVE REPLACEMENT OF PT'S K+SINCE PT ALWAYS HAS HYPOKALEMIA.
[2017-07-07] MEDS: POTASSIUM CL. PREMIX PERIPHER. 50 ML IV SCH ×3 (10:22→13:22)
--- NOTE | 2017-07-07 12:00 | NUR ---
PT FREQUENTLY SCREAMS FOR HELP EVEN IF YOU'RE ALREADY STANDING AT HIS BEDSIDE.REORIENTATION GIVEN OF YOUR PRESENCE STANDING BESIDE HIS BED AND ASKING WHAT HE NEEDS.ATTENDING TO HIS NEEDS FREQUENTLY.CALL LIGHT PLACED WITHIN REACH.
--- NOTE | 2017-07-07 13:08 | NUR ---
TOOK 4TH BAG OF POTASSIUM 10 MEQ KCL FROM THE OMNICELL BY MISTAKE AND SPIKED IT BUT NOT ADMINISTERED AND WASTED WITNESSED BY SPRAY DRIER OPERATOR,VITOR.
[2017-07-07] MEDS ORDERED: K PHOS NEUTRAL 250 MG TABLET PO ONE (14:30)
--- NOTE | 2017-07-07 15:12 | NUR ---
Patient refused hhn treatment. Nurse notified.
[2017-07-07 16:00] VITALS: BP 139/78
[2017-07-07] MEDS ORDERED: QUETIAPINE FUMARATE 25 MG TABLET PO PRN (16:00)
[2017-07-07] MEDS ORDERED: LORAZEPAM 1 MG TABLET PO PRN (16:00)
--- NOTE | 2017-07-07 16:03 | NUR ---
PT HAS FREQUENT AGITATED . CALLED DR DANIELLE AND MADE AWARE WITH ORDERS FOR SEROQUEL AND ATIVAN PO PRN
--- NOTE | 2017-07-07 18:29 | NUR ---
PT IS SO CONFUSED ASKING NURSES TO TAKE [place] [facility] [facility].REORIENTATION GIVEN SAYING HE'S IN THE HOSPITAL AND NEEDS TO RECOVER.
--- NOTE | 2017-07-07 19:55 | NUR ---
rn initial notes: received report from julia navarro pt in bed, awake, on ra respiration even and unlabored, per report pt been non compliant with medications and turning and reposition, md and chargeback specialist aware. pt always wants his blanket covering his face, and doesn't want to remove it, pt has poornima picc line with triple lumen, ports are patent and flushing well, with good blood return, infusing with ns at 150ml/hr. ble offloaded. pt refused to be reposition at this time, still on right side lying position. also refusing for his heel protector to be remove. ble offloaded. on kci mattress. pt been refusing to eat, only wants water. pt a/o x2-3. safety precautions for fall initiated, call light in reach, will continue monitoring pt.
[2017-07-07 20:00] VITALS: BP 139/78
[2017-07-07 20:29] VITALS: BP 139/78
[2017-07-07 21:00] VITALS: BP 135/84
[2017-07-07] MEDS: ATORVASTATIN 10 MG TABLET PO SCH (21:55)
--- NOTE | 2017-07-07 21:55 | NUR ---
PRN ATIVAN: PT REQUESTED FOR MEDICINE FOR HIS ANXIETY, PRN ATIVAN 1MG TAB PO ADMINISTERED TO THE PT AT THIS TIME.
[2017-07-07] MEDS: INSULIN GLARGINE, 100 UNIT/ML CARTRIDGE SQ SCH (22:00)
[2017-07-07] MEDS: BLOOD SUGAR DIAGNOSTIC 1 EACH STRIP IN SCH (22:09)
[2017-07-07] MEDS: INSULIN REGULAR, HUMAN 100 UNIT/ML 3 ML VIAL SQ PRN (22:09)
--- NOTE | 2017-07-07 22:10 | NUR ---
BS 94: PT'S BLOOD SUGAR IS 94, NO INSULIN COVERGAE GIVEN PER SLIDING SCALE. ALSO LANTUS 12UNITS NOT ADMINISTERED DUE TO BLOOD SUGAR OF 94, RISK FOR HYPOGLYCEMIA PT BEEN REFUSING TO EAT, ONLY WANTS WATER, PT RECEIVING NS AT 150ML/HR. AWARE OF PT'S REFUSAL TO EAT, PT BEEN NON COMPLIANT PER REPORT
--- NOTE | 2017-07-08 00:37 | NUR ---
REFUSAL FOR TURNING AND REPOSITIONING: PT REFUSED FOR TURNING AND REPOSITION AT THIS TIME, EDUCATION PROVIDED TO THE PT, ALSO REFUSED BREATHING TREATMENT
--- NOTE | 2017-07-08 02:48 | NUR ---
REFUSAL FOR TURNING AND REPOSITIONING: PT REFUSED FOR TURNING AND REPOSITION AT THIS TIME, EDUCATION PROVIDED TO THE PT, LOADER MALT HOUSE AWARE
[2017-07-08] MEDS: IPRATROPIUM NEB FS 0.5 MG/2.5 ML AMPUL.NEB NEB SCH ×3 (03:01→11:02)
[2017-07-08] MEDS: ALBUTEROL HALF STRENGTH 1.25 MG/3 ML VIAL.NEB NEB SCH ×3 (03:01→11:02)
[2017-07-08] MEDS: IV NS 0.9% 1,000 ML IV PRN (04:02)
[2017-07-08] MEDS: CEFEPIME 1 GM in IV D5W 50 ML IV SCH ×2 (04:02→13:00)
--- NOTE | 2017-07-08 04:20 | NUR ---
REFUSAL FOR BED BATH, TURNING AND REPOSITIONING: PT CALLED ASKING FOR FOOD, PROVIDED PT WITH PUDDING, APPLE SAUCE JELLO AND WATER, ASSISTED IN FEEDING THE PT, ASPIRATION PROTOCOL FOLLOWED, PT ATE ABOUT 50% OF THE FOOD. ALSO INFORMED PT RN AND QUARTER LINING SMOOTHER NEEDS TO PROVIDE MORNING CARE, BED BATH BUT PT REFUSED, STATED HE RECEIVED A BATH IN THE AFTERNOON YESTERDAY, EDUCATE PT REGARDING IMPORTANCE OF HYGIENE, BUT PT REFUSED. MATERIALS MANAGEMENT CLERK MADE AWARE OF THE REFUSAL.
[2017-07-08] MEDS ORDERED: VANCOMYCIN 0.75 GM in IV D5W 250 ML IV SCH (06:00)
[2017-07-08 06:01] LABS: BASOPHILS # (AUTO) 0.1 /CMM (0.0-0.2); BASOPHILS % (AUTO) 0.5 % (0.0-2.0); EOSINOPHILS % (AUTO) 6.6 % (0.0-6.0); HEMATOCRIT 24 % (39-51); HEMOGLOBIN 7.8 g/dL (13.5-17.5); LYMPHOCYTES # (AUTO) 2.6 /CMM (0.8-4.8); LYMPHOCYTES % (AUTO) 19.3 % (20.0-44.0); MEAN CORPUSCULAR HGB CONC 33 g/dl (31.0-36.0); MEAN CORPUSCULAR VOLUME 87 fL (80-96); MONOCYTES # (AUTO) 2.1 /CMM (0.1-1.30); MONOCYTES % (AUTO) 15.8 % (2.0-12.0); NEUTROPHILS # (AUTO) 7.8 /CMM (1.8-8.9); NEUTROPHILS % (AUTO) 57.8 % (43.0-81.0); PLATELET COUNT (AUTO) 342 /CMM (150-450); RDW COEFFICIENT OF VARIATION 17.2 (11.5-15.0); RED BLOOD CELL COUNT(AUTO) 2.73 MIL/uL (4.5-6.0); WHITE BLOOD COUNT (AUTO) 13.5 K/uL (4.3-11.0)
--- NOTE | 2017-07-08 06:11 | NUR ---
RN NOTES: PT REFUSED TO BE REPOSITION, EDUCATION PROVIDED TO THE PT. STILL REFUSED FOR BED BATH.
[2017-07-08 06:17] LABS: CALCIUM, SERUM 7.6 mg/dL (8.5-10.1); CREATININE 0.8 mg/dL (0.6-1.3); MAGNESIUM 1.8 mg/dL (1.8-2.4); PHOSPHORUS 2.7 mg/dL (2.5-4.9); POTASSIUM 3.5 mmol/L (3.5-5.1)
[2017-07-08 06:45] LABS: BAND % (MANUAL) 3 % (0.0-5.0); EOSINOPHILS % (MANUAL) 6 % (0-4); LYMPHOCYTES % (MANUAL) 16 % (16-48); MONOCYTES % (MANUAL) 11 % (0-11.0); NEUTROPHILS % (MANUAL) 64 (42-76)
--- NOTE | 2017-07-08 06:48 | NUR ---
RN CLOSING NOTES: PT IN BED, REMAINS OFF FROM OXYGEN, RESPIRATION EVEN AND UNLABORED. IV ACCESS PATENT AND FLUSHING WELL, INFUSING WITH NS AT 150ML/HR. PT REMAINS TO REFUSED BED BATH, REFUSED TO BE TURN, REFUSED DRESSING CHANGED AND REMAINS COVERING HIS FACE WITH BLANKET. MD AND COMEDIAN AWARE. VS REMAINS STABLE, BLE OFFLOADED. SAFETY PRECAUTIONS FOR FALL REMAINS ENGAGED, CALL LIGHT IN REACH. WILL ENDORSE TO DAY RN FOR MANUEL.
[2017-07-08 08:00] VITALS: BP 128/78
--- NOTE | 2017-07-08 08:00 | NUR ---
RN NOTES RECEIVED PATIENT IN THE BED A/O X 1/2 WITH CONFUSION. PATIENT ON ROOM AIR , NO SOB, NO RESPIRATORY DISTRESS AT THIS TIME. PATIENT REFUSED PAIN. PATIENT TOTAL CARE. SCHEDULED MEDICATION ADMINISTERED AFTER MULTIPLE PROMPT. DRESSINGS CHANGE. PATIENT HAS A EDEMA LEFT UPPER ARM, AND BILATERAL LOWER EXTREMITIES. ELEVATED USING PILLOWS. NEEDS ATTENDED AND ANTICIPATED. INFUSING NS 75 ML/HR AT RIGHT UPPER ARM PICC LINE. CALL LIGHT WITHIN TO REACH. PATIENT POOR EATER. CONTINUED MONITORING Q 2 HR WITH HELP OF SR. MERCHANDISE PLANNER.
[2017-07-08 08:31] VITALS: BP 128/75
[2017-07-08] MEDS: PANTOPRAZOLE 40 MG VIAL IV SCH (08:31)
[2017-07-08] MEDS: LACTOBACILLUS RHAMNOSUS GG 1 EACH CAP.SPRINK PO SCH (08:31)
[2017-07-08] MEDS: ASPIRIN EC 81 MG TABLET.DR PO SCH (08:31)
[2017-07-08] MEDS: GABAPENTIN 300 MG CAPSULE PO SCH ×2 (08:31→13:00)
[2017-07-08] MEDS: CARVEDILOL 6.25 MG TABLET PO SCH (08:31)
[2017-07-08] MEDS: QUETIAPINE FUMARATE 100 MG TABLET PO SCH (08:32)
[2017-07-08] MEDS: CLOPIDOGREL BISULFATE 75 MG TABLET PO SCH (08:32)
[2017-07-08] MEDS: MUPIROCIN OINT 2% 22 GM TUBE SCH (08:37)
[2017-07-08] MEDS: HYDROGEL DRESSING 90 GM TUBE TP SCH (08:38)
[2017-07-08] MEDS: CADEXOMER IODINE 40 GM TUBE TP SCH (08:39)
[2017-07-08] MEDS: Z GUARD REMEDY 2 OZ OINT TP SCH (08:39)
[2017-07-08] MEDS: DAKINS QUARTER STRENGTH (0.125%) 480 ML BOTTLE TOP SCH (08:40)
[2017-07-08] MEDS: ENOXAPARIN SODIUM 40 MG/0.4 ML DISP.SYRIN SQ SCH (08:43)
[2017-07-08] MEDS ORDERED: DIVALPROEX SODIUM 125 MG CAP.SPRINK PO SCH (09:00)
--- NOTE | 2017-07-08 11:03 | NUR ---
RT NOTE PATIENT REFUSED TREATMENT. NO DISTRESS NOTED. NURSE NOTIFIED. WILL CONTINUE TO MONITOR CLOSELY.
[2017-07-08] MEDS ORDERED: ASPI-1152 PO (11:10)
[2017-07-08] MEDS ORDERED: CADE40GE2 TP (11:10)
[2017-07-08] MEDS ORDERED: NUT.237L45 PO (11:10)
[2017-07-08] MEDS ORDERED: GABA300C PO (11:10)
[2017-07-08] MEDS ORDERED: SULF1TAB48 PO (11:18)
[2017-07-08] MEDS ORDERED: GLUCERNA SHAKE 237 ML CAN PO SCH (12:00)
--- NOTE | 2017-07-08 12:00 | NUR ---
RN NOTES PATIENT GOING TO D/C BACK TO THE SNF. SCHEDULED MEDICATION ADMINISTERED CRUSHED AND MIXED WITH APPLE SAUCE. NEEDS ATTENDED AND ANTICIPATED. REMOVED UNDERWOOD CATHETER. ENCOURAGED PATIENT TO INCREASE FLUID INTAKE. CALL LIGHT WITHIN TO REACH. ASSIST TURN AND REPOSTION Q 2 HR. CONTINUED MONITORING.
[2017-07-08] MEDS ORDERED: CEFEPIME 2 GM in IV D5W 100 ML IV SCH (13:00)
--- NOTE | 2017-07-08 14:49 | NUR ---
DISCHARGE NOTES PATIENT DISCHARGE AT THIS TIEM GOING BACK TO THE SNF. PATIENT A/O X2/3, NO ACUTE RESPIRATORY DISTRESS. MED RECONCILIATION AND DISCHARGE ORDER REVIEWED AND EXPLAINED TO. REPORT GIVEN SNF RN CONSTANTINO. RN VERBALIZED UNDERSTANDING. PATIENT HAS NO BELONGING. PATIENT UNABLE TO SIGN PAPERWORK. PICTURE TAKEN. PATIENT HAS NO BELONGING. PATIENT WILL FOLLOW SNF SPRINKLER TRUCK DRIVER. PATIENT MARINE CARGO SPECIALIST BY AMBULANCE.
== END 2017-07-08 14:42 | DRG 720 ==
LOC: ER 09:04 → ICU 12:44 → TELE 07-05 18:33 → MED 07-06 09:05
PROVIDERS: ADMIT Registered Nurse; ATTEND Registered Nurse
PROC: 02HV33Z Insertion of Infusion Device into Superior Vena Cava, Percutaneous Approach (ICD-10-PCS; principal; 2017-07-04)
PROC: B548ZZA Ultrasonography of Superior Vena Cava, Guidance (ICD-10-PCS; principal; 2017-07-04)
DX: A41.9 Sepsis, unspecified organism (principal); J69.0 Pneumonitis due to inhalation of food and vomit; R65.21 Severe sepsis with septic shock; G93.40 Encephalopathy, unspecified; J96.02 Acute respiratory failure with hypercapnia; J96.01 Acute respiratory failure with hypoxia; E43 Unspecified severe protein-calorie malnutrition; E87.2 Acidosis; R13.10 Dysphagia, unspecified; N17.9 Acute kidney failure, unspecified; I69.354 Hemiplegia and hemiparesis following cerebral infarction affecting left non-dominant side; E11.621 Type 2 diabetes mellitus with foot ulcer; F29 Unspecified psychosis not due to a substance or known physiological condition; I10 Essential (primary) hypertension; Z79.84 Long term (current) use of oral hypoglycemic drugs; Z79.4 Long term (current) use of insulin; Z79.899 Other long term (current) drug therapy; H70.892 Other mastoiditis and related conditions, left ear; E86.0 Dehydration; E78.5 Hyperlipidemia, unspecified; D64.9 Anemia, unspecified; T40.605A Adverse effect of unspecified narcotics, initial encounter; Y92.129 Unspecified place in nursing home as the place of occurrence of the external cause; L89.629 Pressure ulcer of left heel, unspecified stage; L97.529 Non-pressure chronic ulcer of other part of left foot with unspecified severity; R53.2 Functional quadriplegia; I67.2 Cerebral atherosclerosis; I70.0 Atherosclerosis of aorta; Y95 Nosocomial condition
CPT/HCPCS: 36415; 36569; 36600; 70450-TC; 71045-TC; 76700-TC; 80048-TC; 80053-TC; 80061-TC; 80076-TC; 80164-TC; 80202-TC; 80305; 81000-TC; 82140-TC; 82962-TC; 83605-TC; 83735-TC; 84100-TC; 84439-TC; 84443-TC; 84484-TC; 85025-TC; 85730-TC; 86850-TC; 86921-TC; 87040-TC; 87070-TC; 87081-TC; 87086-TC; 92611-TC; 93970-TC; 94762-TC; 94799-TC; A4606; A6248; A6402; C9113; G0480; J0692; J1650; J1815; J2310; J2543; J3370; J3475; J3480; J7030; J7040; J7060; Z7610

== ENCOUNTER 2018-09-30 08:51 | Inpatient (IN) | payer OTHER ==
[~2018-09-30] VITALS: Ht 180.3 cm; Wt 112.5 kg
[~2018-09-30 08:51] MED LIST: ACET325C5 PO; ASPI-1152 PO; ATOR20TA PO; CADE40GE2 TP; CARV6.25 PO; CLOP75TA15 PO; DIVA500T4 PO; GABA-532 PO; GABA300C PO; INSU100I30 SQ; INSU100V27 SQ; METF-442 PO; NUT.237L45 PO; QUET100T PO; SULF1TAB48 PO; TRAM50TA2 PO
--- NOTE | 2018-09-30 09:10 | NUR ---
DR MAYO AT BEDSIDE FOR EVAL.
[2018-09-30] MEDS ORDERED: LORA0.5T PO (09:12)
[2018-09-30] MEDS ORDERED: METF-441 PO (09:12)
[2018-09-30] MEDS ORDERED: BISA10SU11 RC (09:12)
[2018-09-30] MEDS ORDERED: POLY15DR40 EACHEYE (09:12)
[2018-09-30] MEDS ORDERED: ASPI-1169 PO (09:12)
[2018-09-30] MEDS ORDERED: ACET-2605 PO (09:12)
[2018-09-30] MEDS ORDERED: DIVA125C5 PO (09:12)
[2018-09-30] MEDS ORDERED: POLY17PO4 PO (09:12)
[2018-09-30] MEDS ORDERED: MAGN400O6 PO (09:12)
[2018-09-30] MEDS ORDERED: NA P133E RC (09:12)
[2018-09-30] MEDS ORDERED: BACL10TA PO (09:12)
[2018-09-30] MEDS ORDERED: INSU100I26 SQ (09:12)
--- NOTE | 2018-09-30 09:28 | NUR ---
IV LINE STARTED BLOOD DRAWN AND SENT TO LAB.
[2018-09-30] MEDS ORDERED: IV NS 0.9% 500 ML BAG IV ONE (09:30)
[2018-09-30 09:42] LABS: BASOPHILS # (AUTO) 0.1 /CMM (0.0-0.2); BASOPHILS % (AUTO) 0.9 % (0.0-2.0); EOSINOPHILS % (AUTO) 7.9 % (0.0-6.0); HEMATOCRIT 39 % (39-51); HEMOGLOBIN 12.8 g/dL (13.5-17.5); LYMPHOCYTES # (AUTO) 1.7 /CMM (0.8-4.8); LYMPHOCYTES % (AUTO) 24.5 % (20.0-44.0); MEAN CORPUSCULAR HGB CONC 33 g/dl (31.0-36.0); MEAN CORPUSCULAR VOLUME 84 fL (80-96); MONOCYTES # (AUTO) 0.6 /CMM (0.1-1.30); MONOCYTES % (AUTO) 7.9 % (2.0-12.0); NEUTROPHILS # (AUTO) 4.1 /CMM (1.8-8.9); NEUTROPHILS % (AUTO) 58.8 % (43.0-81.0); PLATELET COUNT (AUTO) 372 /CMM (150-450); RED BLOOD CELL COUNT(AUTO) 4.67 MIL/uL (4.5-6.0)
--- NOTE | 2018-09-30 09:45 | NUR ---
CALLED NURSING SUP. FOR TELE BED.
[2018-09-30 09:46] LABS: CALCIUM, SERUM 8.9 mg/dL (8.5-10.1); CARBON DIOXIDE 29 mmol/L (21-32); CHLORIDE 103 mmol/L (98-107); CREATININE 1.5 mg/dL (0.6-1.3); GLUCOSE 128 mg/dL (74-106); POTASSIUM 4.9 mmol/L (3.5-5.1); SODIUM SERUM 138 mmol/L (136-145); UREA NITROGEN, BLOOD 36 mg/dL (7-18)
[2018-09-30 09:57] LABS: SERUM AMMONIA 19 umol/L (11-32)
[2018-09-30 10:00] LABS: ALANINE AMINOTRANSFERASE 17 U/L (12-78); ALBUMIN 3.2 g/dL (3.4-5.0); ALKALINE PHOSPHATASE 114 U/L (46-116); ASPARTATE AMINOTRANSFERASE 11 U/L (15-37); BILIRUBIN,DIRECT 0.1 mg/dL (0.0-0.2); BILIRUBIN,TOTAL 0.5 mg/dL (0.2-1.0); TOTAL PROTEIN, SERUM 8.7 g/dL (6.4-8.2)
[2018-09-30 10:04] LABS: ACETAMINOPHEN < 2 ug/ml (10-30); ALCOHOL, BLOOD < 3 mg/dL (0-0); SALICYLATE 0.9 mg/dL (2.8-20.0)
[2018-09-30 10:09] LABS: THYROID STIMULATING HORMONE 0.619 uIU/mL (0.358-3.74)
[2018-09-30 10:11] LABS: APPEARANCE,URINE Clear (CLEAR); BILIRUBIN,URINE MODERATE (NEGATIVE); BLOOD, URINE Negative Ery/uL (NEGATIVE); COLOR,URINE Yellow (YELLOW); KETONES,URINE Negative (NEGATIVE); LEUKOCYTE ESTERASE ,URINE Negative (NEGATIVE); NITRITE, URINE Positive (NEGATIVE); PROTEIN,URINE 30 mg/dl (NEGATIVE); UGLUCOSE Negative (NEGATIVE); UROBILINOGEN,URINE 0.2 EU/dL (0.2)
--- NOTE | 2018-09-30 10:16 | NUR ---
BED 309-1
[2018-09-30 10:28] LABS: BACTERIA,URINE 2+ /HPF (None Seen); RBC,URINE NONE SEEN /HPF (0-2); SQUAMOUS EPITHELIAL CELL,UR Few /HPF (None Seen); WBC,URINE 0-2 /HPF (0-3)
[2018-09-30 10:30] VITALS: BP 131/92
[2018-09-30] MEDS ORDERED: ONDANSETRON HCL/PF 4 MG/2 ML VIAL IVP PRN (10:30)
[2018-09-30] MEDS ORDERED: BISACODYL SUPP (10 MG) 10 MG/SUPP.RECT SUPP.RECT RC PRN (10:30)
[2018-09-30] MEDS ORDERED: DEXTROSE 50%-WATER 50 ML DISP.SYRIN IV PRN (10:30)
[2018-09-30] MEDS ORDERED: MAGNESIUM HYDROXIDE 30 ML UDC PO PRN (10:30)
--- NOTE | 2018-09-30 10:52 | NUR ---
REPORT GIVEN TO KARO BAUTISTA. PT AWAITING TRANSFER TO FLOOR.
--- NOTE | 2018-09-30 11:11 | NUR ---
CURB WORKER OPENING NOTES Patient received on 2L o2, nasal cannula, no sob noted, no s/s of pain at this time. Patient a/o x1. Left wrist #20 patent. Patient's bed at the lowest setting, call light within reach, side rails up x2.
[2018-09-30] MEDS: IV NS 0.9% 1,000 ML IV PRN ×2 (11:50→22:30)
[2018-09-30] MEDS: CEFTRIAXONE 1 G in IV D5W 50 ML IV SCH (12:00)
[2018-09-30] MEDS: BLOOD SUGAR DIAGNOSTIC 1 EACH STRIP IN SCH ×3 (12:11→21:59)
[2018-09-30] MEDS: POLYVINYL ALCOHOL/POVIDONE 0.4 ML DROPERETTE EACHEYE SCH ×2 (13:36→17:20)
[2018-09-30] MEDS: ACETAMINOPHEN ES 500 MG TABLET PO PRN ×2 (14:04→23:16)
--- NOTE | 2018-09-30 15:45 | NUR ---
RN NOTES Patient did a nursing swallow eval per Ron Hardin' order. Patient able to swallow apple sauce and water without and gagging, and coughing.
[2018-09-30 16:00] VITALS: BP 149/90
[2018-09-30] MEDS: LORAZEPAM INJ 2 MG/ML VIAL IV PRN ×2 (16:17→23:37)
[2018-09-30] MEDS: DIVALPROEX SODIUM 125 MG CAP.SPRINK PO SCH (16:17)
[2018-09-30] MEDS: INSULIN REGULAR, HUMAN 100 UNIT/ML 3 ML VIAL SQ PRN (17:18)
--- NOTE | 2018-09-30 17:54 | NUR ---
RN NOTES patient transferred to [facility]
--- NOTE | 2018-09-30 18:26 | NUR ---
CORN CUTTER CLOSING NOTES Patient remains on 2L o2 nasal cannula, patient removes nasal cannula. Patient's vital signs remain stable at this time. Patient denies pain at this time. Patient remains on tele with NSR around the 80's rate. Bed bound and has his left heel photo taken. Left wrist #20 remains open at this time with 100 mL per hour NS infusing. Bed at the lowest setting,call within reach, side rails up x2. Will give report to NOC RN for MANUEL bedside.
--- NOTE | 2018-09-30 19:50 | NUR ---
SUPERVISOR SAWING AND ASSEMBLY NOTES RECEIVED PATIENT AWAKE ASLEEP IN BED WITH NO DISTRESS NOTED. CALL LIGHT WITHIN REACH. NO FACIAL GRIMACING OR GROANING TO INDICATE PAIN OR DISCOMFORT. PERIPHERAL LINE INTACT AND PATENT. BED IN LOW LOCK SETTING. ALL BELONGINGS KEPT NEAR BEDSIDE. WILL CONTINUE TO MONITOR.
[2018-09-30 20:00] VITALS: BP 137/93
[2018-10-01] VITALS: BP 130/80
[2018-10-01 04:00] VITALS: BP_SYST 130; BP_SYST 135; BP_DIAS 80; BP_DIAS 90
--- NOTE | 2018-10-01 04:00 | NUR ---
PATIENT SCREAMING, YELLING, AND CRYING WITH C/O 9/10 LEFT LEG PAIN. NON PHARMACOLOGICAL INTERVENTIONS INEFFECTIVE. WITH NEW ORDER FROM [facility] FOR MORPHINE 2MG IVP X1. ORDER CARRIED OUT AND VERIFIED. WILL CONTINUE TO MONITOR FOR EFFECTIVENESS.
[2018-10-01] MEDS ORDERED: MORPHINE SULFATE INJ 2 MG/ML DISP.SYRIN IV ONE (04:30)
[2018-10-01] MEDS: LORAZEPAM INJ 2 MG/ML VIAL IV PRN ×2 (06:29→12:45)
[2018-10-01] MEDS: BLOOD SUGAR DIAGNOSTIC 1 EACH STRIP IN SCH ×4 (06:45→21:09)
--- NOTE | 2018-10-01 06:46 | NUR ---
OVENS SUPERVISOR NOTES PATIENT AWAKE AND CALM IN BED WITH NO DISTRESS NOTED. CALL LIGHT WITHIN REACH. NO FURTHER C/O PAIN OR DISCOMFORT. PERIPHERAL LINE REMAINS INTACT AND PATENT. UNDERWOOD CATH INTACT AND PATENT AND DRAINED 1000ML CLEAR VENECIA URINE. ALL DUE MEDS GIVEN ORDERED WITH NO ASE. BED IN LOW LOCK SETTING. ALL BELONGINGS KEPT NEAR BEDSIDE. WILL CONTINUE TO MONITOR.
[2018-10-01 08:00] VITALS: BP 144/97
--- NOTE | 2018-10-01 08:00 | NUR ---
MS RN NOTES PATIENT IN BED ALERT, ORIENTED X3 NOTED YELLING WITHOUT ANY REASON. PERIPHERAL IV INTACT PATENT. UNDERWOOD INTACT PATENT. BED IN LOW LOCKED POSITION. CALL LIGHT WITHIN REACH. WILL CONTINUE TO MONITOR.
[2018-10-01] MEDS: POLYETHYLENE GLYCOL 3350 17 GM POWD.PACK PO SCH (09:00)
[2018-10-01] MEDS: DIVALPROEX SODIUM 125 MG CAP.SPRINK PO SCH ×3 (09:13→16:14)
[2018-10-01] MEDS: POLYVINYL ALCOHOL/POVIDONE 0.4 ML DROPERETTE EACHEYE SCH ×3 (09:13→16:45)
[2018-10-01] MEDS: ASPIRIN 81 MG TAB.CHEW PO SCH (09:13)
[2018-10-01] MEDS: CEFTRIAXONE 1 G in IV D5W 50 ML IV SCH (11:07)
[2018-10-01] MEDS: INSULIN REGULAR, HUMAN 100 UNIT/ML 3 ML VIAL SQ PRN ×2 (12:01→21:13)
[2018-10-01] MEDS: QUETIAPINE FUMARATE 100 MG TABLET PO SCH ×2 (12:03→16:13)
[2018-10-01] MEDS: HYDROCODONE/APAP 5/325MG 1 EACH TABLET PO PRN (14:58)
[2018-10-01] MEDS: IV NS 0.9% 1,000 ML IV PRN (15:06)
[2018-10-01 16:00] VITALS: BP 149/90
[2018-10-01 17:16] LABS: HEMOGLOBIN 11.3 g/dL (13.5-17.5); WHITE BLOOD COUNT (AUTO) 6.5 K/uL (4.3-11.0)
[2018-10-01 17:28] LABS: ALBUMIN 2.6 g/dL (3.4-5.0); BILIRUBIN,TOTAL 0.3 mg/dL (0.2-1.0); CALCIUM, SERUM 8.5 mg/dL (8.5-10.1); MAGNESIUM 1.4 mg/dL (1.8-2.4); PHOSPHORUS 2.3 mg/dL (2.5-4.9); POTASSIUM 4.1 mmol/L (3.5-5.1); TOTAL PROTEIN, SERUM 7.6 g/dL (6.4-8.2)
[2018-10-01 17:30] LABS: BASOPHILS # (AUTO) 0.1 /CMM (0.0-0.2); BASOPHILS % (AUTO) 1.1 % (0.0-2.0); EOSINOPHILS % (AUTO) 7.5 % (0.0-6.0); HEMATOCRIT 35 % (39-51); LYMPHOCYTES # (AUTO) 2.7 /CMM (0.8-4.8); MEAN CORPUSCULAR HGB CONC 33 g/dl (31.0-36.0); MEAN CORPUSCULAR VOLUME 84 fL (80-96); MONOCYTES # (AUTO) 0.6 /CMM (0.1-1.30); MONOCYTES % (AUTO) 9.5 % (2.0-12.0); NEUTROPHILS # (AUTO) 2.6 /CMM (1.8-8.9); NEUTROPHILS % (AUTO) 39.9 % (43.0-81.0); PLATELET COUNT (AUTO) 373 /CMM (150-450); RED BLOOD CELL COUNT(AUTO) 4.13 MIL/uL (4.5-6.0)
[2018-10-01 17:35] LABS: THYROID STIMULATING HORMONE 0.566 uIU/mL (0.358-3.74)
--- NOTE | 2018-10-01 18:11 | NUR ---
MS RN NOTES PATIENT IN BED RESTING NO SOB OR ACUTE DISTRESS NOTED. PATIENT ALERT, ORIENTED X2. DENIES ANY PAIN OR DISCOMFORT. PATIENT SCREAMING ALL DURING SHIFT. ALL PRN MEDICATIONS ADMINISTERED. PATIENT SEEN BY PSYCHOLOGIST NEW MEDICATIONS PRESCRIBED. ALL DUE MEDICATIONS ADMINISTERED. ALL NEEDS MET. WILL ENDORSE CARE TO PM SHIFT.
[2018-10-01] MEDS: Magnesium 1GM/D5W 100ML PREMIX 100 ML IV SCH ×4 (18:16→21:19)
[2018-10-01 20:00] VITALS: BP 149/100
--- NOTE | 2018-10-01 20:00 | NUR ---
received pt alert,yelling, in bed, denies any pain, always requesting food, watching tv, iv infusing to left arm ,magnessium replacement ongoing. repositioned for comfort, blankets provided per pt request, all needs attended. fingerstick 163mg/dl with sliding scale coverage, ,vss,afebrile, kept attended, bed alarm active.
--- NOTE | 2018-10-01 22:30 | NUR ---
report recieved from melita rn. patient received alert,in bed, denies any pain, watching tv, iv infusing to left arm 22 gauge with no s/s of infection. ,vss upon review patient is afebrile,bed alarm active, bed down and locked.
[2018-10-02] MEDS: LORAZEPAM INJ 2 MG/ML VIAL IV PRN ×3 (00:51→09:34)
--- NOTE | 2018-10-02 00:57 | NUR ---
MICHELE MS NOTES PATIENT NOTED AGITATED YELLING, APPEARS ANXIOUS , ATIVAN PRN GIVEN ORDERED, 0.5ML/1MG GIVEN. REST WASTED WITH ANOTHER RN. WILL CONTINUE TO MONITOR FOR EFFECTIVENESS AND ENDORSE TO ASSIGNED RN. Addendum: 10/02/18 at 0145 by YAS CROSS RN [id number] report recieved from diaz pride that she administered ativan. patient appears more relaxed but is still yelling out for assisstance. patient requesting diaper change. diaper changed patient had no bm. linen changed patient repositioned. reoriented on how to use the call light bed down locked call [facility] in reach.
--- NOTE | 2018-10-02 01:30 | NUR ---
norco prn patient c/o pain to rigth leg and side he rates at /10. requesting norco for pain. norco administered as ordered.
[2018-10-02] MEDS: HYDROCODONE/APAP 5/325MG 1 EACH TABLET PO PRN ×2 (01:31→06:32)
--- NOTE | 2018-10-02 06:30 | NUR ---
MS RN PM CLOSING NOTES PATIENT IN BED RESTING PATIENT IS YELLING CONSTANTLY. PATIENT MEDICATED WITH NORCO FOR C/O PAIN 6/10 TO LEFT SIDE AND FOOT. PATIENT ALERT, ORIENTED X2. PATIENT SCREAMING FOR MOST OF THE SHIFT, AND USUALLY JUST WANTS CRACKERS OR HIS BED TO BE POSITIONED UP AND DOWN. ALL DURING SHIFT. SAFETY PRECAUTIONS IN PLACE BED DOWN LOCKED SRX2 WILL ENDORSE TO DAY NURSE.
[2018-10-02] MEDS: BLOOD SUGAR DIAGNOSTIC 1 EACH STRIP IN SCH ×2 (06:33→11:55)
[2018-10-02] MEDS: INSULIN REGULAR, HUMAN 100 UNIT/ML 3 ML VIAL SQ PRN ×2 (06:37→11:55)
--- NOTE | 2018-10-02 06:37 | NUR ---
timbo bs is 148. patient offered 2 units of regular insulin. patient states ,"I don't want that my bs is too low. don't give me that."
[2018-10-02 06:43] LABS: BASOPHILS # (AUTO) 0.1 /CMM (0.0-0.2); BASOPHILS % (AUTO) 1.3 % (0.0-2.0); EOSINOPHILS % (AUTO) 8.1 % (0.0-6.0); HEMATOCRIT 36 % (39-51); HEMOGLOBIN 11.6 g/dL (13.5-17.5); LYMPHOCYTES # (AUTO) 2.3 /CMM (0.8-4.8); LYMPHOCYTES % (AUTO) 32.7 % (20.0-44.0); MEAN CORPUSCULAR HGB CONC 33 g/dl (31.0-36.0); MEAN CORPUSCULAR VOLUME 83 fL (80-96); MONOCYTES # (AUTO) 0.7 /CMM (0.1-1.30); NEUTROPHILS # (AUTO) 3.3 /CMM (1.8-8.9); NEUTROPHILS % (AUTO) 47.9 % (43.0-81.0); PLATELET COUNT (AUTO) 378 /CMM (150-450); RED BLOOD CELL COUNT(AUTO) 4.27 MIL/uL (4.5-6.0); WHITE BLOOD COUNT (AUTO) 6.9 K/uL (4.3-11.0)
--- NOTE | 2018-10-02 07:44 | NUR ---
MS RN NOTES PATIENT IN BED ALERT, ORIENTED X3. NO SOB OR ANY DISTRESS NOTED. PATIENT NOTED YELLING FOR NURSE. WHEN ASKED WHY HE IS YELLING STATES HE DOES NOT KNOW. PERIPHERAL IV INTACT PATENT. UNDERWOOD CATHETER INTACT PATENT DRAINING YELLOW URIN. BED IN LOW LOCKED POSITION. CALL LIGHT WITHIN REACH. WILL CONTINUE TO MONITOR.
[2018-10-02 08:00] VITALS: BP 158/100
[2018-10-02] MEDS: ASPIRIN 81 MG TAB.CHEW PO SCH (08:03)
[2018-10-02] MEDS: QUETIAPINE FUMARATE 100 MG TABLET PO SCH (08:03)
[2018-10-02] MEDS: DIVALPROEX SODIUM 125 MG CAP.SPRINK PO SCH ×2 (08:03→13:06)
[2018-10-02] MEDS: POLYETHYLENE GLYCOL 3350 17 GM POWD.PACK PO SCH (08:07)
[2018-10-02] MEDS: POLYVINYL ALCOHOL/POVIDONE 0.4 ML DROPERETTE EACHEYE SCH ×2 (09:00→13:06)
[2018-10-02] MEDS: IV NS 0.9% 1,000 ML IV PRN (10:51)
[2018-10-02] MEDS: CEFTRIAXONE 1 G in IV D5W 50 ML IV SCH (10:51)
--- NOTE | 2018-10-02 15:00 | NUR ---
MS RN NOTES PATIENT DISCHARGED TO [facility] IN STABLE CONDITION. PATIENT ALERT, ORIENTED X2. REPORT GIVEN TO AILEEN BAUTISTA AT [facility]. DISCHARGE PROTOCOL FOLLOWED. PATIENT REFUSED PICTURES FOR DISCHARGE. PATIENTS BELONGINGS ACCOUNTED FOR, BELONGING LIST SIGNED. DISCHARGE EDUCATION PROVIDED TO PATIENT AND RN AT [facility]. PATIENT TRANSFERRED TO [facility] VIA MEDICAL TRANSFORATION.
[2018-10-03 10:07] LABS: *SPE A/G RATIO 0.7 (0.7-1.7); *SPE ALBUMIN 2.9 g/dL (2.9-4.4); *SPE ALPHA-1-GLOBULIN 0.2 g/dL (0.0-0.4); *SPE ALPHA-2-GLOBULIN 0.7 g/dL (0.4-1.0); *SPE BETA GLOBULIN 1.3 g/dL (0.7-1.3); *SPE M-SPIKE Not Observed g/dL (Not Observed); *SPEGAMMA GLOBULIN 1.8 g/dL (0.4-1.8)
[2018-10-03 13:09] LABS: PTH, INTACT 21 pg/mL (15-65)
== END 2018-10-02 15:00 | DRG 469 ==
LOC: ER 08:55 → TELE 10:20 → MED 10-01 08:45
PROVIDERS: ADMIT Nurse Practitioner Acute Care; ATTEND Nurse Practitioner Acute Care
DX: N17.0 Acute kidney failure with tubular necrosis (principal); G93.41 Metabolic encephalopathy; E44.0 Moderate protein-calorie malnutrition; N39.0 Urinary tract infection, site not specified; E66.01 Morbid (severe) obesity due to excess calories; Z68.34 Body mass index [BMI] 34.0-34.9, adult
CPT/HCPCS: 36415; 70450-TC; 71045-TC; 73610-TC; 76770-TC; 80048-TC; 80053-TC; 80061-TC; 80076-TC; 80305; 81000-TC; 82140-TC; 82550-TC; 82962-TC; 83605-TC; 83735-TC; 83970; 84100-TC; 84155; 84165; 84443-TC; 84484-TC; 85025-TC; 85730-TC; 87040-TC; 87081-TC; 87086-TC; 87186-TC; 92526; 92611-TC; G0378; G0480; J0696; J1815; J2060; J2270; J3475; J7030; J7040; J7060

== ENCOUNTER 2018-10-09 00:10 | Emergency (ER) | payer OTHER ==
[~2018-10-09] VITALS: Ht 185.4 cm; Wt 117.9 kg
[~2018-10-09 00:10] MED LIST changes: +ACET-2605 PO; -ASPI-1152 PO; +ASPI-1169 PO; -ATOR20TA PO; +BACL10TA PO; +BISA10SU11 RC; -CADE40GE2 TP; -CARV6.25 PO; -CLOP75TA15 PO; +DIVA125C5 PO; -DIVA500T4 PO; -GABA300C PO; +INSU100I26 SQ; -INSU100I30 SQ; +MAGN400O6 PO; +METF-441 PO; -METF-442 PO; +NA P133E RC; -NUT.237L45 PO; +POLY15DR40 EACHEYE; +POLY17PO4 PO; -QUET100T PO; -SULF1TAB48 PO
[2018-10-09] MEDS: IV NS 0.9% 1,000 ML BAG IV ONE (00:47)
--- NOTE | 2018-10-09 00:49 | NUR ---
ANGEL FROM [facility]. TO ER BED 9. AAOX1. NO RESP DISTRESS NOTED, BREATHING EVEN AND UNLABORED. C/O ALETERED MENTAL STATUS, PER EMS REPORT PT IS HARD TO ARROUSE THAT WHY THEY GOT CALLED. PT AWAKENED WHEN MOVE FROM BED TO RNEY. MD AT BEDSIDE. ORDERS RECEIVED, NOTED AND CARRIED OUT
--- NOTE | 2018-10-09 01:24 | NUR ---
URINE COLLECTED VIA STRAIGHT CATH. URINE SENT TO LAB
[2018-10-09 01:31] LABS: APPEARANCE,URINE Clear (CLEAR); BILIRUBIN,URINE Negative (NEGATIVE); BLOOD, URINE Negative Ery/uL (NEGATIVE); COLOR,URINE Yellow (YELLOW); KETONES,URINE Negative (NEGATIVE); LEUKOCYTE ESTERASE ,URINE Negative (NEGATIVE); NITRITE, URINE Negative (NEGATIVE); PROTEIN,URINE 100 mg/dl (NEGATIVE); UGLUCOSE Negative (NEGATIVE)
[2018-10-09 01:35] LABS: BASOPHILS # (AUTO) 0.1 /CMM (0.0-0.2); BASOPHILS % (AUTO) 1.2 % (0.0-2.0); HEMATOCRIT 39 % (39-51); HEMOGLOBIN 12.4 g/dL (13.5-17.5); LYMPHOCYTES # (AUTO) 2.2 /CMM (0.8-4.8); MEAN CORPUSCULAR HGB CONC 32 g/dl (31.0-36.0); MEAN CORPUSCULAR VOLUME 84 fL (80-96); MONOCYTES # (AUTO) 0.6 /CMM (0.1-1.30); MONOCYTES % (AUTO) 7.6 % (2.0-12.0); NEUTROPHILS # (AUTO) 4.1 /CMM (1.8-8.9); NEUTROPHILS % (AUTO) 54.2 % (43.0-81.0); PLATELET COUNT (AUTO) 430 /CMM (150-450); RED BLOOD CELL COUNT(AUTO) 4.59 MIL/uL (4.5-6.0); WHITE BLOOD COUNT (AUTO) 7.5 K/uL (4.3-11.0)
[2018-10-09 01:41] LABS: BACTERIA,URINE None seen /HPF (None Seen); RBC,URINE 0-2 /HPF (0-2); WBC,URINE 0-2 /HPF (0-3)
[2018-10-09 01:42] LABS: SQUAMOUS EPITHELIAL CELL,UR Few /HPF (None Seen)
[2018-10-09 01:47] LABS: CALCIUM, SERUM 8.9 mg/dL (8.5-10.1); CARBON DIOXIDE 26 mmol/L (21-32); CHLORIDE 103 mmol/L (98-107); CREATININE 1.1 mg/dL (0.6-1.3); GLUCOSE 94 mg/dL (74-106); POTASSIUM 4.4 mmol/L (3.5-5.1); SODIUM SERUM 138 mmol/L (136-145); UREA NITROGEN, BLOOD 22 mg/dL (7-18)
[2018-10-09 01:53] LABS: ALANINE AMINOTRANSFERASE 23 U/L (12-78); ALBUMIN 2.8 g/dL (3.4-5.0); ALKALINE PHOSPHATASE 112 U/L (46-116); ASPARTATE AMINOTRANSFERASE 17 U/L (15-37); BILIRUBIN,DIRECT 0.1 mg/dL (0.0-0.2); BILIRUBIN,TOTAL 0.3 mg/dL (0.2-1.0); SERUM AMMONIA 13 umol/L (11-32)
[2018-10-09 02:24] LABS: THYROID STIMULATING HORMONE 2.141 uIU/mL (0.358-3.74)
--- NOTE | 2018-10-09 03:47 | NUR ---
CALL THE CAR CALLED FOR BLS TRANSPORT. PENDING ETA.
--- NOTE | 2018-10-09 04:19 | NUR ---
[facility] ETA [id number]
--- NOTE | 2018-10-09 05:11 | NUR ---
REPORT GIVEN TO MICHELE INGRAM FOR [facility] AT THE [facility]
--- NOTE | 2018-10-09 05:16 | NUR ---
Shahbaz 115 AT BEDSIDE FOR PT TRANSPORT BACK TO [facility]. REPORT GIVEN TO [facility] STAFF WELL AT FACILITY. NAD UPON D/C. PT IS STABLE FOR TRANSPORT VSS
--- NOTE | 2018-10-09 05:17 | NUR ---
IV removed. Catheter intact and site benign. Pressure and 4x4 applied to site. No bleeding noted.
[2018-10-09 05:18] VITALS: BP 135/84
== END 2018-10-09 05:19 | disposition home or self-care (01) ==
LOC: ER 00:18
DX: F03.90 Unspecified dementia, unspecified severity, without behavioral disturbance, psychotic disturbance, mood disturbance, and anxiety (principal); R41.0 Disorientation, unspecified; D64.9 Anemia, unspecified; E86.0 Dehydration; I10 Essential (primary) hypertension; E11.9 Type 2 diabetes mellitus without complications; Z86.73 Personal history of transient ischemic attack (TIA), and cerebral infarction without residual deficits; Z79.899 Other long term (current) drug therapy; Z79.82 Long term (current) use of aspirin; Z79.4 Long term (current) use of insulin; Z79.84 Long term (current) use of oral hypoglycemic drugs
CPT/HCPCS: 36415; 71045; 80048; 80076; 81001; 82140; 84443; 84484; 85025; 85730; 87081; 96360; 99284; J7030; 81000-TC

== ENCOUNTER 2018-11-12 16:57 | Inpatient (IN) | payer OTHER ==
[~2018-11-12] VITALS: Ht 188 cm; Wt 107.6 kg
[~2018-11-12 16:57] MED LIST changes: -ACET325C5 PO; +ACET325C7 PO
--- NOTE | 2018-11-12 17:05 | NUR ---
[facility] TO ER; SNF STAFF CALLED 911; ALOC; MORE ALTERD THAN NORMAL" ACCU CHECK - 103 MM/DL. PATIENT ALTERED, RESPONSIVE TO TACTILE STIMULI.
--- NOTE | 2018-11-12 17:11 | NUR ---
LABS DRAWN BY THE RN, SEPTIC WORK UP
[2018-11-12 17:25] LABS: BASOPHILS # (AUTO) 0.1 /CMM (0.0-0.2); EOSINOPHILS % (AUTO) 5.1 % (0.0-6.0); HEMATOCRIT 36 % (39-51); HEMOGLOBIN 11.4 g/dL (13.5-17.5); LYMPHOCYTES # (AUTO) 2.2 /CMM (0.8-4.8); MEAN CORPUSCULAR HGB CONC 32 g/dl (31.0-36.0); MEAN CORPUSCULAR VOLUME 85 fL (80-96); MONOCYTES # (AUTO) 1.1 /CMM (0.1-1.30); NEUTROPHILS # (AUTO) 8.2 /CMM (1.8-8.9); NEUTROPHILS % (AUTO) 66.9 % (43.0-81.0); PLATELET COUNT (AUTO) 573 /CMM (150-450); RED BLOOD CELL COUNT(AUTO) 4.22 MIL/uL (4.5-6.0); WHITE BLOOD COUNT (AUTO) 12.2 K/uL (4.3-11.0)
[2018-11-12] MEDS ORDERED: PIPERACILLIN /TAZOBACTAM 3.375 G in IV D5W 50 ML IV ONE (17:30)
[2018-11-12] MEDS ORDERED: VANCOMYCIN 1 GM in IV D5W 250 ML IV ONE (17:30)
[2018-11-12 17:31] LABS: APPEARANCE,URINE Slightly Cloudy (CLEAR); BILIRUBIN,URINE SMALL (NEGATIVE); BLOOD, URINE Moderate Ery/uL (NEGATIVE); COLOR,URINE Yellow (YELLOW); KETONES,URINE Trace (NEGATIVE); LEUKOCYTE ESTERASE ,URINE Small (NEGATIVE); NITRITE, URINE Negative (NEGATIVE); PROTEIN,URINE 100 mg/dl (NEGATIVE); UGLUCOSE Negative (NEGATIVE)
[2018-11-12 17:36] LABS: CALCIUM, SERUM 9.2 mg/dL (8.5-10.1); CARBON DIOXIDE 30 mmol/L (21-32); CHLORIDE 103 mmol/L (98-107); CREATININE 1.8 mg/dL (0.6-1.3); GLUCOSE 94 mg/dL (74-106); POTASSIUM 4.3 mmol/L (3.5-5.1); SODIUM SERUM 139 mmol/L (136-145); UREA NITROGEN, BLOOD 27 mg/dL (7-18)
[2018-11-12 17:45] LABS: BACTERIA,URINE Moderate /HPF (None Seen); SQUAMOUS EPITHELIAL CELL,UR Few /HPF (None Seen)
[2018-11-12 17:51] LABS: ALANINE AMINOTRANSFERASE 26 U/L (12-78); ALBUMIN 2.2 g/dL (3.4-5.0); ALKALINE PHOSPHATASE 100 U/L (46-116); ASPARTATE AMINOTRANSFERASE 36 U/L (15-37); BILIRUBIN,DIRECT 0.2 mg/dL (0.0-0.2); BILIRUBIN,TOTAL 0.4 mg/dL (0.2-1.0); TOTAL PROTEIN, SERUM 8.7 g/dL (6.4-8.2)
[2018-11-12] MEDS ORDERED: AMIN30LI2 PO (19:03)
[2018-11-12] MEDS ORDERED: QUET100T PO (19:03)
[2018-11-12] MEDS ORDERED: SENN-168 PO (19:03)
[2018-11-12] MEDS ORDERED: MULT-447 PO (19:03)
[2018-11-12] MEDS ORDERED: TRAM50TA2 PO (19:03)
[2018-11-12] MEDS ORDERED: INSU100V7 SQ (19:03)
[2018-11-12] MEDS ORDERED: ASCO500T9 PO (19:03)
--- NOTE | 2018-11-12 19:23 | NUR ---
ENDORSED TO JENNIFER BAUTISTA FOR MANUEL.
--- NOTE | 2018-11-12 19:45 | NUR ---
CALLED NURSING SUP FOR [facility] BED
--- NOTE | 2018-11-12 19:49 | NUR ---
CHRISTINA ALLEN (SISTER) CONTACT INFORMATION: [phone]
--- NOTE | 2018-11-12 20:04 | NUR ---
BED ASSIGNMENT 311-1
--- NOTE | 2018-11-12 20:12 | NUR ---
CALLED IN REPORT TO KENJI BAUTISTA GOING TO 311-1
--- NOTE | 2018-11-12 20:26 | NUR ---
Patient discharged to home in stable condition. Written and verbal after care instructions given. Patient verbalizes understanding of instruction.
--- NOTE | 2018-11-12 20:35 | NUR ---
report recieved from [facility]. patient came form [facility]. admitted [facility] with dx of uti with sepsis. per report sister will be in to visit the patient tomorrow. patient is currently very lethargic, responsive to deep pain, patien oriented x1. patient admitted to 311 bed 1 med - surge to dr. alvarado. patient in bed with srx3. vss. patient on ra with rr evn and unlabored. patient does not appear to be in any pain with flacc score of 0. 2200 admission assessment performed using old records. pictures of wounds taken. new orders from dr. alvarado carried out.
[2018-11-12] MEDS ORDERED: MAG HYDROX/AL HYDROX/SIMETH 30 ML UDC PO PRN (21:00)
[2018-11-12] MEDS ORDERED: ZOLPIDEM TARTRATE 5 MG TABLET PO PRN (21:00)
[2018-11-12] MEDS ORDERED: ONDANSETRON HCL/PF 4 MG/2 ML VIAL IVP PRN (21:00)
[2018-11-12] MEDS ORDERED: MAGNESIUM HYDROXIDE 30 ML UDC PO PRN (21:00)
[2018-11-12] MEDS ORDERED: Z GUARD REMEDY 2 OZ OINT TP PRN (21:00)
[2018-11-12] MEDS ORDERED: ACETAMINOPHEN 325 MG TABLET PO PRN (21:00)
[2018-11-12] MEDS ORDERED: CEFTRIAXONE 1 G VIAL ONE (21:17)
[2018-11-12] MEDS: IV NS 0.9% 1,000 ML IV PRN (21:52)
[2018-11-12] MEDS: CEFTRIAXONE 1 G in IV D5W 50 ML IV SCH (21:53)
[2018-11-13 00:33] VITALS: BP 106/66
--- NOTE | 2018-11-13 06:00 | NUR ---
RN MS PM CLOSING NOTE PATIENT SEEN RESTING IN BED. PATIENT MORE ALERT RESPONSIVE TO VOICE STILL AX0 X1 BUT MAKING NEEDS KNOWN STATES "I DON'T FEEL COMFORTABLE, CAN YOU HELP ME MOVE". PATIENT REPOSITIONED TO LEFT SIDE. PATIENT BREATHING IS EVEN AND UNLABORED. NS INFUSING TO LEFT AC WITH NO S/S OF INFILTRATION/COMPLICATIONS. BED DOWN LOCKED SRX3 CALL LIGHT WITHIN REACH. BED ALARM ACTIVE WILL CONT TO MONITOR AND ENDORSE TO AM SHIFT.
--- NOTE | 2018-11-13 07:30 | NUR ---
m/s piece dyer: initial assessment received pt in bed awake, a/ox1-2 with confusion and disorientation to place and situation. pt gets easily irritated and manipulative when being assessed like accusing nurse of hurting him when nurse just assessing his iv site to lac by pulling his gown up. reality orientation provided prn. pt c/o 08/23 generalized discomfort. will continue to monitor.
[2018-11-13] MEDS: HYDROCODONE/APAP 5/325MG 1 EACH TABLET PO PRN (07:40)
[2018-11-13 08:00] VITALS: BP 126/62
[2018-11-13 08:27] VITALS: BP 126/65
--- NOTE | 2018-11-13 08:40 | NUR ---
m/s landfill gas technician: md visit seen and examined by dr. steen at this time. pt still with 4/10 generalized discomfort. reality orientation provided prn. will continue to monitor.
--- NOTE | 2018-11-13 08:50 | NUR ---
m/s compliance officer: md visit seen and examined by dr. steen and informed md re: home meds hasn't been reconciled yet.
[2018-11-13] MEDS ORDERED: NA PHOS,M-B/NA PHOS,DI-BA 1 EA ENEMA RC PRN (09:00)
[2018-11-13] MEDS ORDERED: MAGNESIUM HYDROXIDE 30 ML UDC PO PRN (09:00)
[2018-11-13] MEDS ORDERED: BISACODYL SUPP (10 MG) 10 MG/SUPP.RECT SUPP.RECT RC PRN (09:00)
[2018-11-13] MEDS ORDERED: ACETAMINOPHEN 325 MG TABLET PO PRN (09:00)
[2018-11-13] MEDS: ASPIRIN 81 MG TAB.CHEW PO SCH (09:24)
[2018-11-13] MEDS: MULTIVITAMINS,THERAGRAN 1 UDTAB TABLET PO SCH (09:25)
[2018-11-13] MEDS: ASCORBIC ACID 500 MG TABLET PO SCH (09:25)
[2018-11-13] MEDS: BACLOFEN (10 MG) 10 MG TABLET PO SCH ×3 (09:25→16:35)
[2018-11-13] MEDS: QUETIAPINE FUMARATE 100 MG TABLET PO SCH ×2 (09:25→16:35)
[2018-11-13] MEDS: METFORMIN 850 MG TABLET PO SCH ×2 (09:25→16:35)
[2018-11-13] MEDS: DIVALPROEX SODIUM 250 MG TABLET.DR PO SCH ×3 (09:25→16:35)
[2018-11-13] MEDS: GABAPENTIN 400 MG CAPSULE PO SCH ×3 (09:25→16:35)
[2018-11-13] MEDS: TRAMADOL HCL 50 MG TABLET PO SCH (09:25)
[2018-11-13] MEDS: POLYETHYLENE GLYCOL 3350 17 GM POWD.PACK PO SCH (09:26)
[2018-11-13 09:38] LABS: ABG BASE EXCESS 2.8 mmol/L; ABG OXYGEN SATURATION 95.1 % (92.0-98.5); ABG PH 7.447 (7.350-7.450); ABG PO2 77.9 mmHg (75.0-100.0); AaDO2 23.9 mmHg; COHb 0.8 % (0.5-1.5); MetHb 0.6 % (0.0-1.5); O2Hb 93.8 % (94.0-97.0); SITE, ABG Left Radial; VENT MODE, BG ROOM AIR
[2018-11-13] MEDS: PROSOURCE / PROSTAT (PYXIS) 30 ML UDC PO SCH (09:50)
[2018-11-13] MEDS: INSULIN GLARGINE, 100 UNIT/ML CARTRIDGE SQ SCH ×2 (09:52→10:00)
--- NOTE | 2018-11-13 10:25 | NUR ---
m/s ignition expert: epoxy specialist consult seen and examined by dr. hood with tx orders. orders acknowledged. initial tx done by . will continue to monitor.
[2018-11-13] MEDS ORDERED: SILVER SULFADIAZINE 50 GM JAR TP PRN (10:30)
--- NOTE | 2018-11-13 11:15 | NUR ---
m/s home furnishings sales representative: plastic surgeon seen and examined by matty (leta) at this time and plan for debridement today, but pt refusing at this time. p.a. aware and place a call to pt's sister, left message re: to obtaining consent for serial debridement of sacrum and b/l buttocks via voice mail. pt unable to sign consent due to cognitive impairment. matty and julius having problems measuring wound due to pt chronic pain complaints despite pt is medicated. will continue to monitor.
[2018-11-13] MEDS ORDERED: LIDOCAINE 1%-EPI 1:100,000 50 ML VIAL IJ ONE (11:30)
--- NOTE | 2018-11-13 12:49 | NUR ---
PT REFUSED THE EXAM. HE IS COMBATIVE AND ATTACKS. CHARGE NURSE, ANETA WAS INFORMED
[2018-11-13] MEDS: IV NS 0.9% 1,000 ML IV PRN (13:16)
[2018-11-13] MEDS: POLYVINYL ALCOHOL 15 ML BOTTLE EACHEYE SCH ×2 (13:16→16:38)
--- NOTE | 2018-11-13 15:00 | NUR ---
m/s loom overhauler: notes kci mattress provided. wound care done as ordered. kept comfortable. still awaiting for paco (sister) to call back re: consent for serial debridement, pt stated, "he doesn't have a sister." will f/u with case management/social worker psychiatric.
--- NOTE | 2018-11-13 15:10 | NUR ---
m/s liquid fertilizer servicer: notes inna (case management) notified and ask him if pt has any family member to provide consent and ask me to call [facility] a call to , but nurse not available at this time. place another call to paco (sister [phone], left message via voice to call me at [facility].
--- NOTE | 2018-11-13 15:55 | NUR ---
m/s lighting technician: notes place a call to [facility], spoke to christoph (social science professor) and informed that pt has a sister, but has never talk to her.
[2018-11-13 16:20] VITALS: BP 138/81
--- NOTE | 2018-11-13 17:00 | NUR ---
m/s type photography supervisor: notes still awaiting for sister to call back for serial sacrum debridement. pt cannot sign the consent due to cognitive impairment. will continue to monitor.
--- NOTE | 2018-11-13 18:30 | NUR ---
m/s commercial litigation paralegal: notes place another call to paco (sister) [phone], but did not answer on the other line when i said brionna and then the other green party just hanged up the phone. pt unable to consent for serial debridement, pt will need 2 doctors to sign the consent and will pass it on the next shift. cn made aware.
--- NOTE | 2018-11-13 19:10 | NUR ---
m/s 6th grade teacher: notes report given to meche (bigg) for continuity of care.
--- NOTE | 2018-11-13 19:50 | NUR ---
MS RN NOTE: PATIENT RESTING IN BED, NO ACUTE DISTRESS NOTED. BREATHING EVEN AND UNLABORED, NO SOB NOTED. IV TO LAC IN PLACE, INFUSING NS AT 75ML/HR. UNDERWOOD CATHETER IN PLACE, EMPTY AT THIS TIME. BED LOCKED AND IN LOWEST POSITION, CALL LIGHT IN REACH. WILL CONTINUE TO MONITOR.
[2018-11-13 20:00] VITALS: BP_SYST 118; BP_SYST 147; BP_DIAS 66
[2018-11-13] MEDS: TRAMADOL HCL 50 MG TABLET PO PRN (20:08)
--- NOTE | 2018-11-13 20:15 | NUR ---
MS RN NOTE: PATIENT COMPLAINS OF GENERALIZED PAIN 9/, ULTRAM 50MG ORAL GIVEN PER MD ORDER. WILL CONTINUE TO MONITOR.
[2018-11-13] MEDS: CEFTRIAXONE 1 G in IV D5W 50 ML IV SCH (21:34)
[2018-11-13] MEDS: SENNOSIDES 8.6 MG TABLET PO SCH (21:35)
[2018-11-13 23:18] LABS: BASOPHILS # (AUTO) 0.1 /CMM (0.0-0.2); BASOPHILS % (AUTO) 1.3 % (0.0-2.0); EOSINOPHILS % (AUTO) 5.7 % (0.0-6.0); HEMATOCRIT 35 % (39-51); HEMOGLOBIN 11.1 g/dL (13.5-17.5); LYMPHOCYTES # (AUTO) 2.6 /CMM (0.8-4.8); LYMPHOCYTES % (AUTO) 22.8 % (20.0-44.0); MEAN CORPUSCULAR HGB CONC 32 g/dl (31.0-36.0); MEAN CORPUSCULAR VOLUME 84 fL (80-96); MONOCYTES % (AUTO) 8.8 % (2.0-12.0); NEUTROPHILS % (AUTO) 61.4 % (43.0-81.0); PLATELET COUNT (AUTO) 600 /CMM (150-450); RED BLOOD CELL COUNT(AUTO) 4.12 MIL/uL (4.5-6.0); WHITE BLOOD COUNT (AUTO) 11.5 K/uL (4.3-11.0)
[2018-11-13 23:39] LABS: ALBUMIN 2.1 g/dL (3.4-5.0); BILIRUBIN,TOTAL 0.4 mg/dL (0.2-1.0); CALCIUM, SERUM 8.9 mg/dL (8.5-10.1); CREATININE 1.2 mg/dL (0.6-1.3); MAGNESIUM 1.7 mg/dL (1.8-2.4); PHOSPHORUS 2.6 mg/dL (2.5-4.9); POTASSIUM 3.7 mmol/L (3.5-5.1); TOTAL PROTEIN, SERUM 8.7 g/dL (6.4-8.2)
[2018-11-14] MEDS ORDERED: Magnesium 1GM/D5W 100ML PREMIX PIGGYBACK IV ONE (04:00)
[2018-11-14] MEDS: IV NS 0.9% 1,000 ML IV PRN ×2 (04:56→21:37)
[2018-11-14 06:09] LABS: BASOPHILS # (AUTO) 0.1 /CMM (0.0-0.2); BASOPHILS % (AUTO) 1.2 % (0.0-2.0); EOSINOPHILS % (AUTO) 5.5 % (0.0-6.0); HEMATOCRIT 35 % (39-51); HEMOGLOBIN 11.4 g/dL (13.5-17.5); LYMPHOCYTES # (AUTO) 2.7 /CMM (0.8-4.8); LYMPHOCYTES % (AUTO) 24.1 % (20.0-44.0); MEAN CORPUSCULAR HGB CONC 33 g/dl (31.0-36.0); MEAN CORPUSCULAR VOLUME 83 fL (80-96); MONOCYTES # (AUTO) 1.3 /CMM (0.1-1.30); MONOCYTES % (AUTO) 11.4 % (2.0-12.0); NEUTROPHILS # (AUTO) 6.4 /CMM (1.8-8.9); NEUTROPHILS % (AUTO) 57.8 % (43.0-81.0); PLATELET COUNT (AUTO) 489 /CMM (150-450); RED BLOOD CELL COUNT(AUTO) 4.19 MIL/uL (4.5-6.0)
[2018-11-14 06:24] LABS: ALBUMIN 1.9 g/dL (3.4-5.0); BILIRUBIN,TOTAL 0.4 mg/dL (0.2-1.0); CALCIUM, SERUM 8.5 mg/dL (8.5-10.1); MAGNESIUM 1.6 mg/dL (1.8-2.4); PHOSPHORUS 2.9 mg/dL (2.5-4.9); POTASSIUM 3.8 mmol/L (3.5-5.1); TOTAL PROTEIN, SERUM 8.1 g/dL (6.4-8.2)
--- NOTE | 2018-11-14 06:25 | NUR ---
MS RN NOTE: PATIENT RESTING IN BED, NO ACUTE DISTRESS NOTED. BREATHING EVEN AND UNLABORED, NO SOB NOTED. IV TO LAC IN PLACE, INFUSING NS AT 75ML/HR. UNDERWOOD CATHETER IN PLACE. BED LOCKED AND IN LOWEST POSITION, CALL LIGHT IN REACH. WILL ENDORSE TO DAY NURSE TO CONTINUE WITH PLAN OF CARE.
--- NOTE | 2018-11-14 07:37 | NUR ---
WOUND CARE CONSULT WOUND CARE RECEIVED CONSULT FOR WOUNDS ON FEET AND SACRUM. WOUND CARE WILL DEFER CONSULT AND ALL TREATMENT PLANS TO PLASTIC SURGICAL TEAM INCLUDING DMP DR LOPEZ WHO ARE ALL CURRENTLY FOLLOWING THIS PATIENT. PATIENT WITH ZION AT 13, ALL PRESSURE ULCER PREVENTION MEASURES ARE NOTED TO BE IN PLACE AT THIS TIME. WILL SEE PRN.
[2018-11-14 08:00] VITALS: BP 133/109
--- NOTE | 2018-11-14 08:00 | NUR ---
m/s system specialist: initial assessment received pt in bed awake, a/o2 with confusion and disorientation to place and situation. reality orientation provided prn. for possible wound debridement, awaiting for plastic surgeon. will continue to monitor.
[2018-11-14] MEDS: PROSOURCE / PROSTAT (PYXIS) 30 ML UDC PO SCH (09:00)
[2018-11-14] MEDS: INSULIN GLARGINE, 100 UNIT/ML CARTRIDGE SQ SCH (09:00)
[2018-11-14] MEDS: BACLOFEN (10 MG) 10 MG TABLET PO SCH ×3 (09:02→17:09)
[2018-11-14] MEDS: QUETIAPINE FUMARATE 100 MG TABLET PO SCH ×2 (09:02→17:09)
[2018-11-14] MEDS: ASPIRIN 81 MG TAB.CHEW PO SCH (09:02)
[2018-11-14] MEDS: POLYETHYLENE GLYCOL 3350 17 GM POWD.PACK PO SCH (09:02)
[2018-11-14] MEDS: TRAMADOL HCL 50 MG TABLET PO SCH (09:02)
[2018-11-14] MEDS: METFORMIN 850 MG TABLET PO SCH ×2 (09:02→17:12)
[2018-11-14] MEDS: MULTIVITAMINS,THERAGRAN 1 UDTAB TABLET PO SCH (09:02)
[2018-11-14] MEDS: GABAPENTIN 400 MG CAPSULE PO SCH ×3 (09:03→17:09)
[2018-11-14] MEDS: DIVALPROEX SODIUM 250 MG TABLET.DR PO SCH ×3 (09:03→17:09)
[2018-11-14] MEDS: ASCORBIC ACID 500 MG TABLET PO SCH (09:03)
[2018-11-14] MEDS: HYDROGEL DRESSING 90 GM TUBE TP SCH (09:05)
[2018-11-14] MEDS: POLYVINYL ALCOHOL 15 ML BOTTLE EACHEYE SCH ×3 (09:05→17:16)
[2018-11-14 09:10] VITALS: BP 133/109
--- NOTE | 2018-11-14 10:00 | NUR ---
m/s medical technologist chief: notes pt refused am care when organ tuner offered at this time. pt wants to rest. will continue to monitor. call light within reach.
[2018-11-14 11:39] LABS: CREATININE, URINE 96.5 MG/DL (30.0-125.0); URINE TOTAL PROTEIN 250.6 mg/dL (0-11.9)
[2018-11-14 12:27] LABS: EOSINOPHIL,URINE Few
[2018-11-14 12:50] LABS: APPEARANCE,URINE Cloudy (CLEAR); BILIRUBIN,URINE Negative (NEGATIVE); BLOOD, URINE Large Ery/uL (NEGATIVE); COLOR,URINE Amber (YELLOW); KETONES,URINE Trace (NEGATIVE); LEUKOCYTE ESTERASE ,URINE Trace (NEGATIVE); NITRITE, URINE Negative (NEGATIVE); PROTEIN,URINE 100 mg/dl (NEGATIVE); UGLUCOSE Negative (NEGATIVE)
[2018-11-14 12:55] LABS: BACTERIA,URINE Few /HPF (None Seen); RBC,URINE 21-50 /HPF (0-2); SQUAMOUS EPITHELIAL CELL,UR Rare /HPF (None Seen)
[2018-11-14] MEDS ORDERED: LIDOCAINE 1%-EPI 1:100,000 20 ML VIAL TP STA (14:20)
[2018-11-14] MEDS ORDERED: SILVER NITRATE APPLICATOR 1 EA BOX TP ONE (14:20)
--- NOTE | 2018-11-14 14:30 | NUR ---
m/s sap security architect: notes sacral wound tx done as ordered. pm care rendered. kept comfortable. instructed to call for assistance. will monitor.
--- NOTE | 2018-11-14 15:30 | NUR ---
m/s customer engineering specialist: notes matty (p.a.) here and will do serial wound debridement tomorrow once 2 doctors signed the consent. awaiting for another doctor to sign the consent. pt unable to sign consent due to cognitive impairment. will continue to monitor.
[2018-11-14] MEDS: SULFAMETH/TRIMETH 800/160 MG 1 UDTAB TABLET PO SCH (17:17)
--- NOTE | 2018-11-14 18:30 | NUR ---
m/s director labor standards: notes in bed resting comfortable. needs attended. no distress noted. call light within reach.
--- NOTE | 2018-11-14 19:00 | NUR ---
m/s household coordinator: notes report given to jerry (rn) for continuity of care.
[2018-11-14 20:00] VITALS: BP 120/72
--- NOTE | 2018-11-14 20:00 | NUR ---
MS/RN OPENING NOTES RECEIVED PATIENT IN BED, AWAKE, ALERT X2 AWAKE, , CAN RESPOND WITH SIMPLE ANSWER, CAN SCREAM WHEN HE NEEDS A NURSE. PATIETN WITH UNSTAGEABLE WOUND IN SACRAL AREA, ON IV HYDRATION AT 75 ML/HR, WIILL MONITOR AND REQUIRE ANOTHER MD TO SIGN CONSENT FOR HIS PROCEDURE DEBRIDEMENT. WILL MONITOR. PARAPLEGIA AND REQUIRE ASSISTANCE. BED LOCKED, CALL LIGHTS WITHIN REACH. WILL MONITOR.
[2018-11-14 20:47] VITALS: BP 120/72
[2018-11-14] MEDS: SENNOSIDES 8.6 MG TABLET PO SCH (21:37)
--- NOTE | 2018-11-14 21:48 | NUR ---
MS/RN NOTES PATIENT MONITORED AND KEPT COMFORTABLE, REQUESTED FOR SOME SNACKS, IV FLUIDS RUNNING AT 75 ML/HR, REPOSITIONED FOR COMFORT, OFF LOAD, REFUSE TO HAVE WOUND CARE FOR TONIGHT REPORTED WANT TO SLEEP WILL MONITOR AND FOLLOW UP.
[2018-11-14] MEDS: TRAMADOL HCL 50 MG TABLET PO PRN (21:59)
--- NOTE | 2018-11-14 22:00 | NUR ---
MS/RN NOTES PATIENT IN BED, REQUIRE EXTENSIVE IN REPOSITION AND TURN, DISCUSSED PLAN OF CARE TO DO TREATMENT ON WOUND AND CARE FOR THE NIGHT, PATIENT MADE AWARE AND REFUSED TO HAVE THE CARE THAT HE IS COMFORTABLE AND WOULD LIKE TO GET SOME SLEEP REPORTED, WILL MONITOR.
--- NOTE | 2018-11-14 22:00 | NUR ---
MS/RN NOTES SEVERE PAIN REPORTED BY PATIENT, SCREAMING, GUARDING AND GRIMACING, ALERT X2, ABLE TO VERBALIZE NEEDS, BREATHING EVEN AND UNLABORED, ULTRAM 50 MG BY MOUTH GIVEN, PATIENT ABLE TO SWALLOW PILL. WILL MONITOR.
[2018-11-15] MEDS: HYDROCODONE/APAP 5/325MG 1 EACH TABLET PO PRN ×2 (05:13→12:16)
--- NOTE | 2018-11-15 05:17 | NUR ---
MS/RN NOTES PATIENT PAIN MEDICATION NORCO 5-325 MG PO GIVEN DUE TO PAIN. FOR WOUND TREATMENT TO MONITOR.
--- NOTE | 2018-11-15 06:21 | NUR ---
MS/RN NOTES PATIENT REFUSE TO HAVE BLOOD DRAW AT THIS TIME AND WANT TO HAVE IT AFTER BREAKFAST, REINFORCED THE IMPORTANCE, VERBALIZED UNDERSTANDING.
--- NOTE | 2018-11-15 06:38 | NUR ---
MS/RN NOTES PATIENT IN BED, AWAKE, ALERT X3, ABLE TO VERBALIZE NEEDS, ASSISTANCE PROVIDED TO PATIENT, WOUND CARE, HYGIENE CARE, FLUIDS PROVIDED WILL MONITOR. BED LOCKED, CALL LIGHTS WITHIN REACH, PROVIDED SNACKS, PAIN MEDICATION PROVIDED. DISCUSSED PLAN OF CARE, WILL ENDORSE TO AM RN FOR MANUEL.
--- NOTE | 2018-11-15 07:24 | NUR ---
RN OPENING NOTE PT WAS RECEIVED IN BED AT LOWEST AND LOCKED POSITION WITH SIDE RAILS UPX2, A/O X2 BREATHING EVEN AND UNLABORED ON RA, NO S/S OF ANY DISTRESS OR PAIN NOTED AT THIS TIME, IV IS PATENT AND INTACT, NOTED TO BE ON ISOLATION PRECAUTIONS FOR MRSA, SAFETY PRECAUTIONS IN PLACE, CALL LIGHT WITHIN REACH, WILL MONITOR ACCORDINGLY
[2018-11-15 08:00] VITALS: BP 108/59
[2018-11-15] MEDS: ASPIRIN 81 MG TAB.CHEW PO SCH (08:07)
[2018-11-15] MEDS: SULFAMETH/TRIMETH 800/160 MG 1 UDTAB TABLET PO SCH ×2 (08:07→20:07)
[2018-11-15] MEDS: BACLOFEN (10 MG) 10 MG TABLET PO SCH ×3 (08:07→16:22)
[2018-11-15] MEDS: MULTIVITAMINS,THERAGRAN 1 UDTAB TABLET PO SCH (08:07)
[2018-11-15] MEDS: GABAPENTIN 400 MG CAPSULE PO SCH ×3 (08:07→16:22)
[2018-11-15] MEDS: DIVALPROEX SODIUM 250 MG TABLET.DR PO SCH ×3 (08:08→16:22)
[2018-11-15] MEDS: ASCORBIC ACID 500 MG TABLET PO SCH (08:08)
[2018-11-15] MEDS: QUETIAPINE FUMARATE 100 MG TABLET PO SCH ×2 (08:08→16:22)
[2018-11-15] MEDS: HYDROGEL DRESSING 90 GM TUBE TP SCH (08:09)
[2018-11-15] MEDS: INSULIN GLARGINE, 100 UNIT/ML CARTRIDGE SQ SCH (08:09)
[2018-11-15] MEDS: TRAMADOL HCL 50 MG TABLET PO SCH (08:09)
[2018-11-15] MEDS: POLYVINYL ALCOHOL 15 ML BOTTLE EACHEYE SCH ×3 (08:10→16:22)
[2018-11-15] MEDS: METFORMIN 850 MG TABLET PO SCH ×2 (08:11→16:22)
[2018-11-15] MEDS: PROSOURCE / PROSTAT (PYXIS) 30 ML UDC PO SCH (08:11)
[2018-11-15] MEDS: POLYETHYLENE GLYCOL 3350 17 GM POWD.PACK PO SCH (08:11)
[2018-11-15 13:07] LABS: *SPE A/G RATIO 0.5 (0.7-1.7); *SPE ALBUMIN 2.5 g/dL (2.9-4.4); *SPE ALPHA-1-GLOBULIN 0.4 g/dL (0.0-0.4); *SPE ALPHA-2-GLOBULIN 0.8 g/dL (0.4-1.0); *SPE BETA GLOBULIN 1.3 g/dL (0.7-1.3); *SPE GLOBULIN, TOTAL 5.2 g/dL (2.2-3.9); *SPE M-SPIKE Not Observed g/dL (Not Observed); *SPEGAMMA GLOBULIN 2.7 g/dL (0.4-1.8); PTH, INTACT 17 pg/mL (15-65)
[2018-11-15 16:00] VITALS: BP 101/58
--- NOTE | 2018-11-15 16:46 | NUR ---
RN NOTE PT REFUSED LAB DRAW AGAIN AT THIS TIME, INFORMED AND EDUCATED ABOUT WHY BLOOD NEEDED TO BE DRAWN BUT PT ADAMANT AND REFUSING.
[2018-11-15] MEDS: DAKINS QUARTER STRENGTH (0.125%) 480 ML BOTTLE TOP SCH (17:06)
[2018-11-15] MEDS: Magnesium 1GM/D5W 100ML PREMIX 100 ML IV SCH ×2 (18:41→20:07)
--- NOTE | 2018-11-15 18:47 | NUR ---
RN CLOSING NOTE PT IN BED AT LOWEST AND LOCKED POSITION WITH SIDE RAILS UPX2, A/O X2 BREATHING EVEN AND UNLABORED ON RA WITH NO S/S OF ANY DISTRESS OR PAIN NOTED AT THIS TIME, IV IS PATENT AND INTACT,, SAFETY PRECAUTIONS IN PLACE, CALL LIGHT WITHIN REACH, ALL NEEDS ATTENDED TO, WILL ENDORSE TO NIGHT RN FOR MANUEL.
--- NOTE | 2018-11-15 19:30 | NUR ---
MS/RN OPENING NOTES RECEIVED PATIENT IN BED, AWAKE, RESTING COMFORTABLY IN BED, ABLE TO RESPOND AND MAKE SMALL TALK ABOUT THE TREATMENT IN HIS WOUND, RESPIRATIONS EVEN AND UNLABORED, MONITORING FOR ANY CHANGES OR PAIN. MAGNESIUM IV IS BEING ADMINISTERED PER MD ORDER. BED LOCKED, CALL LIGHTS WITHIN REACH. WILL MONITOR.
[2018-11-15 20:00] VITALS: BP 105/59
[2018-11-15] MEDS: IV NS 0.9% 1,000 ML IV PRN (20:07)
[2018-11-15] MEDS: MUPIROCIN OINT 2% 22 GM TUBE SCH (20:11)
--- NOTE | 2018-11-15 20:18 | NUR ---
MS/RN NOTES PATIENT ABLE TO VERBALIZE NEEDS AND REPORTED PAIN LEVEL OF 8/10 IN BACK, ADMINISTERED IV MAGNESIUM ORDERED, PATIETN ABLE TO TAKE AND SWALL ORAL MEDICATION PRESCRIBED , KEEP HOB ELEVATED TO AVOID ASPIRATIONS. CONTACT ISOLATION FOLLOWED, HYGIENE CARE PRACTICED. WILL MONITOR.
--- NOTE | 2018-11-15 20:55 | NUR ---
MS/RN NOTES PATIENT KEPT COMFORTABLE, OFF LOAD AND REPOSITIONED FOR COMFORT, PROVIDED WARM BLANKET AND REFUSE TO HAVEPAIN MEDICATION AT THIS TIME AND VITAL SIGNS, DISCUSSED IMPORTANCE AND VERBALIZED UNDERSTANDING, WILL MONITOR .
--- NOTE | 2018-11-15 22:05 | NUR ---
MS/RN NOTES PATIENT SCREAMED FOR NURSE FOR PAIN PILL, AWAKE AND OPENS EYES, OBSERVE GRIMACE AND GUARDING WILL PROVIDE COMFORT MEASURES AND NEEDED PAIN MEDICATION .
[2018-11-15] MEDS: SENNOSIDES 8.6 MG TABLET PO SCH (22:13)
[2018-11-15] MEDS: TRAMADOL HCL 50 MG TABLET PO PRN (22:14)
[2018-11-15 23:08] LABS: BASOPHILS # (AUTO) 0.1 /CMM (0.0-0.2); BASOPHILS % (AUTO) 1.2 % (0.0-2.0); EOSINOPHILS % (AUTO) 5.6 % (0.0-6.0); HEMATOCRIT 32 % (39-51); HEMOGLOBIN 10.3 g/dL (13.5-17.5); LYMPHOCYTES # (AUTO) 1.9 /CMM (0.8-4.8); LYMPHOCYTES % (AUTO) 19.9 % (20.0-44.0); MEAN CORPUSCULAR HGB CONC 33 g/dl (31.0-36.0); MEAN CORPUSCULAR VOLUME 82 fL (80-96); MONOCYTES % (AUTO) 10.3 % (2.0-12.0); NEUTROPHILS # (AUTO) 6.1 /CMM (1.8-8.9); PLATELET COUNT (AUTO) 495 /CMM (150-450); RED BLOOD CELL COUNT(AUTO) 3.84 MIL/uL (4.5-6.0); WHITE BLOOD COUNT (AUTO) 9.6 K/uL (4.3-11.0)
[2018-11-15 23:50] LABS: CALCIUM, SERUM 8.3 mg/dL (8.5-10.1); MAGNESIUM 1.8 mg/dL (1.8-2.4); PHOSPHORUS 2.7 mg/dL (2.5-4.9); POTASSIUM 3.8 mmol/L (3.5-5.1)
--- NOTE | 2018-11-16 03:38 | NUR ---
MS/RN NOTES PATIENT AWAKEN FROM SLEEP REPORTED PAIN, SCREAMED AND INFORMED NURSE HE IS IN PAIN, RESPIRATIONS EVEN AND UNLABORED, FAMILY PARTICIPATIVE WITH CARE Addendum: 11/16/18 at 0294 by ARPIT AVILES RN PLS DISREGARD FAMILY PARTICIPATION
--- NOTE | 2018-11-16 03:45 | NUR ---
MS/RN NOTES PATIENT PROVIDED WARM BLANKET AND ABLE TO PARTICIPATE., REPORTED FEELING COMFORTABLE AND NO LONGER NEED FOR PAIN MEDICATION AT THIS TIME,
--- NOTE | 2018-11-16 06:51 | NUR ---
MS/RN NOTES PATIENT IN BED, RESTING COMFORTABLY IN BED, AROUSES EASILY, CAN VERBALIZE NEEDS, RESPIRATIONS EVEN AND UNLABORED. MONITORED FOR ANY CHANGES. BED LOCKED, CALL LIGHTS WITHIN REACH, WILL MONITOR.
--- NOTE | 2018-11-16 07:30 | NUR ---
MS RN OPENING NOTES RECEIVED PATIENT IN BED RESTING COMFORTABLY IN MODERATE HIGH BACK REST. A/O X 2. IV FLUIDS OF NS RUNNING @75ML/HR. PATENT AND INTACT. NOTED WITH UNDERWOOD CATHETER, INTACT AND DRAINING FREELY. ON ISOLATION PRECAUTION FOR MRSA. SAFETY MEASURES IN PLACE, BED IN LOW LOCKED POSITION WITH SIDE RAILS UP X 2, CALL LIGHTS WITHIN REACH. WILL CONTINUE TO MONITOR.
[2018-11-16 08:00] VITALS: BP 116/78
[2018-11-16] MEDS: POLYETHYLENE GLYCOL 3350 17 GM POWD.PACK PO SCH (08:12)
[2018-11-16] MEDS: BACLOFEN (10 MG) 10 MG TABLET PO SCH ×3 (08:30→16:28)
[2018-11-16] MEDS: MULTIVITAMINS,THERAGRAN 1 UDTAB TABLET PO SCH (08:30)
[2018-11-16] MEDS: SULFAMETH/TRIMETH 800/160 MG 1 UDTAB TABLET PO SCH (08:30)
[2018-11-16] MEDS: ASCORBIC ACID 500 MG TABLET PO SCH (08:30)
[2018-11-16] MEDS: ASPIRIN 81 MG TAB.CHEW PO SCH (08:30)
[2018-11-16] MEDS: GABAPENTIN 400 MG CAPSULE PO SCH ×3 (08:30→16:28)
[2018-11-16] MEDS: QUETIAPINE FUMARATE 100 MG TABLET PO SCH ×2 (08:30→16:28)
[2018-11-16] MEDS: METFORMIN 850 MG TABLET PO SCH ×2 (08:30→16:28)
[2018-11-16] MEDS: TRAMADOL HCL 50 MG TABLET PO SCH (08:30)
[2018-11-16] MEDS: DIVALPROEX SODIUM 250 MG TABLET.DR PO SCH ×3 (08:30→16:28)
[2018-11-16] MEDS: PROSOURCE / PROSTAT (PYXIS) 30 ML UDC PO SCH (08:50)
[2018-11-16] MEDS: INSULIN GLARGINE, 100 UNIT/ML CARTRIDGE SQ SCH (08:51)
[2018-11-16] MEDS: DAKINS QUARTER STRENGTH (0.125%) 480 ML BOTTLE TOP SCH (08:53)
[2018-11-16] MEDS: MUPIROCIN OINT 2% 22 GM TUBE SCH (08:53)
[2018-11-16] MEDS: POLYVINYL ALCOHOL 15 ML BOTTLE EACHEYE SCH ×3 (08:54→16:51)
[2018-11-16] MEDS: HYDROGEL DRESSING 90 GM TUBE TP SCH (08:56)
[2018-11-16] MEDS: HYDROCODONE/APAP 5/325MG 1 EACH TABLET PO PRN (09:32)
[2018-11-16] MEDS ORDERED: SULF1TAB3 PO (13:50)
--- NOTE | 2018-11-16 17:40 | NUR ---
RN DISCHARGED NOTES PATIENT DISCHARGED IN STABLE CONDITION. A/O X 2. V/S TAKEN, STABLE AND RECORDED. PATIENT'S IV REMOVED AND APPLIED PRESSURE DRESSING. SKIN ASSESSMENT WAS DONE AND PICTURES FILED ON CHART. NAME ARM BAND REMOVED. NO BELONGINGS. HEALTH TEACHINGS/DISCHARGED INSTRUCTIONS GIVEN AND VERBALIZED UNDERSTANDING. PATIENT LEFT UNIT VIA GURNEY WITH 3 AMBULANCE STAFF WITH NO SIGNS OF ACUTE DISTRESS. PATIENT IS GOING TO [facility]. CHARGE NURSE AWARE OF DISCHARGED.
== END 2018-11-16 17:36 | DRG 710 ==
LOC: ER 17:01 → MED 20:06
PROVIDERS: ADMIT Internal Medicine; ATTEND Hospitalist
PROC: 0KBP0ZZ Excision of Left Hip Muscle, Open Approach (ICD-10-PCS; principal; 2018-11-15)
PROC: 0KBN0ZZ Excision of Right Hip Muscle, Open Approach (ICD-10-PCS; principal; 2018-11-15)
DX: A41.9 Sepsis, unspecified organism (principal); N17.0 Acute kidney failure with tubular necrosis; G93.41 Metabolic encephalopathy; L89.154 Pressure ulcer of sacral region, stage 4; E44.0 Moderate protein-calorie malnutrition; L89.313 Pressure ulcer of right buttock, stage 3; L89.323 Pressure ulcer of left buttock, stage 3; E11.40 Type 2 diabetes mellitus with diabetic neuropathy, unspecified; E86.0 Dehydration; N39.0 Urinary tract infection, site not specified; I69.354 Hemiplegia and hemiparesis following cerebral infarction affecting left non-dominant side; E78.5 Hyperlipidemia, unspecified; F41.9 Anxiety disorder, unspecified; F29 Unspecified psychosis not due to a substance or known physiological condition; B96.89 Other specified bacterial agents as the cause of diseases classified elsewhere; D64.9 Anemia, unspecified; Z74.01 Bed confinement status; Z68.30 Body mass index [BMI] 30.0-30.9, adult; E11.51 Type 2 diabetes mellitus with diabetic peripheral angiopathy without gangrene; E11.621 Type 2 diabetes mellitus with foot ulcer; L97.529 Non-pressure chronic ulcer of other part of left foot with unspecified severity; S90.421A Blister (nonthermal), right great toe, initial encounter; X58.XXXA Exposure to other specified factors, initial encounter; Y92.89 Other specified places as the place of occurrence of the external cause; L89.620 Pressure ulcer of left heel, unstageable; L89.610 Pressure ulcer of right heel, unstageable; L85.3 Xerosis cutis; M20.42 Other hammer toe(s) (acquired), left foot; M20.41 Other hammer toe(s) (acquired), right foot; E83.42 Hypomagnesemia; B95.62 Methicillin resistant Staphylococcus aureus infection as the cause of diseases classified elsewhere; F03.90 Unspecified dementia, unspecified severity, without behavioral disturbance, psychotic disturbance, mood disturbance, and anxiety; I10 Essential (primary) hypertension; M62.82 Rhabdomyolysis; D68.59 Other primary thrombophilia; D72.829 Elevated white blood cell count, unspecified; D47.3 Essential (hemorrhagic) thrombocythemia; Z79.4 Long term (current) use of insulin; Z79.82 Long term (current) use of aspirin; Z79.899 Other long term (current) drug therapy; Z79.84 Long term (current) use of oral hypoglycemic drugs
CPT/HCPCS: 36415; 36600; 70450-TC; 71045-TC; 73630-TC; 80048-TC; 80053-TC; 80061-TC; 80076-TC; 81000-TC; 82550-TC; 82570-TC; 82962-TC; 83605-TC; 83735-TC; 83970; 84100-TC; 84155; 84155-TC; 84165; 84300-TC; 84484-TC; 85025-TC; 85730-TC; 87040-TC; 87081-TC; 87086-TC; 92521; 92526; A6248; A6253; A6403; G0378; J0696; J1815; J2543; J3370; J3475; J3490; J7030; J7060

== ENCOUNTER 2019-01-05 10:47 | Inpatient (IN) | payer OTHER ==
[~2019-01-05] VITALS: Ht 180.3 cm; Wt 97.1 kg
[~2019-01-05 10:47] MED LIST changes: -ACET-2605 PO; +AMIN30LI2 PO; +ASCO500T9 PO; -INSU100I26 SQ; -INSU100V27 SQ; +INSU100V7 SQ; +MULT-447 PO; +QUET100T PO; +SENN-168 PO; +SULF1TAB3 PO
[2019-01-05] MEDS ORDERED: CEFTRIAXONE 1GM BAG (ER ONLY) 1 GM/50 ML PIGGYBACK IV ONE (11:00)
[2019-01-05] MEDS ORDERED: VANCOMYCIN HCL 1 GM in IV D5W 260 ML IV ONE (11:00)
[2019-01-05] MEDS ORDERED: IV NS 0.9% 1,000 ML BAG IV ONE (11:00)
--- NOTE | 2019-01-05 11:08 | NUR ---
IV LINE ESTABLISHED, BLOOD DRAWN AND SENT TO LAB.
[2019-01-05] MEDS ORDERED: CEFTRIAXONE 1GM BAG (ER ONLY) 50 ML IV ONE (11:09)
[2019-01-05] MEDS ORDERED: BLOO-668 IN (11:10)
[2019-01-05] MEDS ORDERED: TRAM50TA2 PO (11:10)
[2019-01-05] MEDS ORDERED: HYDR-4384 PO (11:10)
[2019-01-05] MEDS ORDERED: LEVO500T75 PO (11:10)
--- NOTE | 2019-01-05 11:10 | NUR ---
ANGEL FROM [address] [place] [address] C/O LOW O2 SAT, FEVER 102.7. PATIENT A/OX1, NRB REMOVED, PATIENT ON ROOM AIR WITH SPO2 OF 94-96%. STABLE. CHANGED INTO GOWN, ATTACHED TO THE MESSENGER FLOORPERSON, IV LINE ESTABLISHED.
[2019-01-05 11:11] LABS: BASOPHILS # (AUTO) 0.1 /CMM (0.0-0.2); BASOPHILS % (AUTO) 0.3 % (0.0-2.0); HEMATOCRIT 28 % (39-51); HEMOGLOBIN 8.8 g/dL (13.5-17.5); LYMPHOCYTES # (AUTO) 2.1 /CMM (0.8-4.8); LYMPHOCYTES % (AUTO) 7.6 % (20.0-44.0); MEAN CORPUSCULAR HGB CONC 32 g/dl (31.0-36.0); MEAN CORPUSCULAR VOLUME 81 fL (80-96); MONOCYTES # (AUTO) 1.9 /CMM (0.1-1.30); MONOCYTES % (AUTO) 6.8 % (2.0-12.0); NEUTROPHILS # (AUTO) 23.4 /CMM (1.8-8.9); NEUTROPHILS % (AUTO) 85.3 % (43.0-81.0); PLATELET COUNT (AUTO) 569 /CMM (150-450); RED BLOOD CELL COUNT(AUTO) 3.41 MIL/uL (4.5-6.0); WHITE BLOOD COUNT (AUTO) 27.5 K/uL (4.3-11.0)
[2019-01-05 11:19] LABS: CALCIUM, SERUM 8.7 mg/dL (8.5-10.1); CARBON DIOXIDE 26 mmol/L (21-32); CHLORIDE 106 mmol/L (98-107); GLUCOSE 261 mg/dL (74-106); POTASSIUM 4.3 mmol/L (3.5-5.1); SODIUM SERUM 141 mmol/L (136-145); UREA NITROGEN, BLOOD 45 mg/dL (7-18)
[2019-01-05 11:26] LABS: APPEARANCE,URINE Slightly Cloudy (CLEAR); BILIRUBIN,URINE SMALL (NEGATIVE); BLOOD, URINE Large Ery/uL (NEGATIVE); COLOR,URINE Orange (YELLOW); KETONES,URINE 15 (NEGATIVE); LEUKOCYTE ESTERASE ,URINE Trace (NEGATIVE); NITRITE, URINE Negative (NEGATIVE); PROTEIN,URINE >=300 mg/dl (NEGATIVE); UGLUCOSE Negative (NEGATIVE)
--- NOTE | 2019-01-05 11:28 | NUR ---
Note shaquille in EDM - 01/05/19 at 1130 by TRELL ANGEL FROM [address] [place] [address] C/O LOW O2 SAT, FEVER 102.7. PATIENT A/OX1, NRB REMOVED, PATIENT ON ROOM AIR WITH SPO2 OF 94-96%. STABLE. CHANGED INTO GOWN, ATTACHED TO THE CLINICAL TRIAL MANAGER, IV LINE ESTABLISHED.
[2019-01-05 11:31] LABS: ALANINE AMINOTRANSFERASE 11 U/L (12-78); ALKALINE PHOSPHATASE 83 U/L (46-116); ASPARTATE AMINOTRANSFERASE 28 U/L (15-37); BILIRUBIN,DIRECT 0.3 mg/dL (0.0-0.2); BILIRUBIN,TOTAL 0.6 mg/dL (0.2-1.0); TOTAL PROTEIN, SERUM 8.5 g/dL (6.4-8.2)
[2019-01-05 11:33] LABS: ALBUMIN 1.3 g/dL (3.4-5.0)
--- NOTE | 2019-01-05 11:33 | NUR ---
albumin 1.0 per lab. aware
[2019-01-05 11:36] LABS: BACTERIA,URINE Few /HPF (None Seen); RBC,URINE TOO NUMEROUS TO COUN /HPF (0-2); SQUAMOUS EPITHELIAL CELL,UR Few /HPF (None Seen); URINE AMORPHOUS URATE Moderate /HPF (None Seen)
--- NOTE | 2019-01-05 11:53 | NUR ---
CALLED [facility] DEREK CEBALLOS.
--- NOTE | 2019-01-05 11:53 | NUR ---
CALLED NURSING SUP FOR TELE BED.
--- NOTE | 2019-01-05 12:17 | NUR ---
NURSING SUP GAVE BED 118-2.
--- NOTE | 2019-01-05 12:18 | NUR ---
NURSES NAME IS
[2019-01-05] MEDS ORDERED: ACETAMINOPHEN 650 MG/SUPP.RECT RC ONE ×2 (12:43→13:00)
--- NOTE | 2019-01-05 12:47 | NUR ---
REPORT GIVEN TO EULALIO BAUTISTA.
[2019-01-05] MEDS ORDERED: BISACODYL SUPP (10 MG) 10 MG/SUPP.RECT SUPP.RECT RC PRN (13:30)
--- NOTE | 2019-01-05 13:36 | NUR ---
REPORT TRANSFERRED TO TELE BED VIA ACLS PROTOCOL. PATIENT A/OX1, NO DISTRESS NOTED.
--- NOTE | 2019-01-05 13:40 | NUR ---
COMMERCIAL AGENT OPENING NOTES PATIENT A/O X 1 . PATIENT IS VERBAL BUT AT TIMES HARD TO UNDERSTAND . WHEN IN ROOM PATIENT WILL CALL OUR ARIADNE, NO, DONT, STOP. . PATIENT S1 /S2 HEART. NO SIGHTS OF DISTRESS. PATIENT LUNG SOUNDS CLEAR THROUGHT OUR. PATIENT BOWEL ARE ACTIVE. PATIENT HAS RFA 18G CLEAN DRY AND INTACT, FLUSHED. PATIENT HAS MULTIPLE WOUNDS . CLEAN DRY AND INTACT. PATIENT SHOWS NO SIGNS OF RESPIRATORY DISTRESS. COOLING MEASURES PROVIDED. PATIENT HAS HEMATURIA IN UNDERWOOD BED LOWEST POSITION. CALL LIGHT WITH IN REACH. SAFETY MAINTAINED .
[2019-01-05] MEDS ORDERED: FEE PK DOSING 1 MIN EA MC ONE (13:53)
[2019-01-05] MEDS ORDERED: MAG HYDROX/AL HYDROX/SIMETH 30 ML UDC PO PRN (14:00)
[2019-01-05] MEDS ORDERED: MORPHINE SULFATE INJ 2 MG/ML DISP.SYRIN IV PRN (14:00)
[2019-01-05] MEDS ORDERED: DEXTROSE 50%-WATER 50 ML DISP.SYRIN IV PRN (14:00)
[2019-01-05] MEDS ORDERED: ACETAMINOPHEN 325 MG TABLET PO PRN (14:00)
[2019-01-05] MEDS ORDERED: IPRATROPIUM NEB FS 0.5 MG/2.5 ML AMPUL.NEB NEB PRN (14:00)
[2019-01-05] MEDS ORDERED: MAGNESIUM HYDROXIDE 30 ML UDC PO PRN (14:00)
[2019-01-05] MEDS ORDERED: ALBUTEROL FS 2.5 MG/3 ML VIAL.NEB NEB PRN (14:00)
[2019-01-05] MEDS ORDERED: ONDANSETRON HCL/PF 4 MG/2 ML VIAL IVP PRN (14:00)
[2019-01-05] MEDS ORDERED: ZOLPIDEM TARTRATE 5 MG TABLET PO PRN (14:00)
[2019-01-05] MEDS ORDERED: Z GUARD REMEDY 2 OZ OINT TP PRN (14:00)
[2019-01-05] MEDS ORDERED: PIPERACILLIN /TAZOBACTAM 3.375 G in IV D5W 50 ML IV ONE (15:00)
[2019-01-05 16:00] VITALS: BP 95/68
[2019-01-05] MEDS: DIVALPROEX SODIUM 125 MG CAP.SPRINK PO SCH (17:51)
[2019-01-05] MEDS: GABAPENTIN 100 MG CAPSULE PO SCH (17:53)
[2019-01-05] MEDS: QUETIAPINE FUMARATE 100 MG TABLET PO SCH (17:53)
[2019-01-05] MEDS: BACLOFEN (10 MG) 10 MG TABLET PO SCH (17:53)
[2019-01-05] MEDS: POLYVINYL ALCOHOL 15 ML BOTTLE EACHEYE SCH (17:55)
[2019-01-05] MEDS: BLOOD SUGAR DIAGNOSTIC 1 EACH STRIP IN SCH ×3 (18:05→21:47)
--- NOTE | 2019-01-05 19:25 | NUR ---
RN OPENING NOTES: PATIENT ASLEEP BUT EASILY AWAKENED. NO RESPIRATORY DISTRESS. NO S/S OF PAIN. (R) WRIST 18G INTACTM PATENT, AND FLUSHING WELL. SAFETY PRECAUTIONS IMPLEMENTED. BED LOCKED AND IN LOWEST POSITION. UNDERWOOD PATENT AND DRAINING YELLOW URINE. CALL LIGHT PLACED WITHIN REACH. WILL CONT. TO MONITOR. Addendum: 01/05/19 at 2034 by ZACKARY ALCANTARA RN ON SPREADER BOX OPERATOR SHOWING SINUS TACHY.
--- NOTE | 2019-01-05 19:30 | NUR ---
HAND COUNTER CLOSING NOTES PATIENT ENSORDES TO PM SHIFT. PATIENT IS ASLEEP BUT EASILY AROUSED. PATIENT IS SATURATING WELL AT 97 % IN ROOM AIR. PATIENT SHOWS NO SIGNS OF DISTRESS, BUT HAS PAIN WHEN MOVING PATIENT LEFT OR RIGHT. PATIENT EXTREMITIES ARE SENSITIVE TO MOVEMENT. BED LOWEST POSITION. CALL LIGHT WITH IN REACH. SAFETY MAINTAINED.
[2019-01-05 20:00] VITALS: BP 105/75
[2019-01-05] MEDS: ALBUMIN 25% 25 GM in PREMIX 1 EA IV SCH (20:00)
[2019-01-05] MEDS ORDERED: PIPERACILLIN /TAZOBACTAM 3.375 G in IV D5W 100 ML IV SCH (21:00)
[2019-01-05] MEDS: SENNOSIDES 8.6 MG TABLET PO SCH (21:12)
[2019-01-05] MEDS: DAKINS QUARTER STRENGTH (0.125%) 480 ML BOTTLE TOP SCH (21:32)
[2019-01-05] MEDS: INSULIN REGULAR, HUMAN 100 UNIT/ML 3 ML VIAL SQ PRN (21:43)
[2019-01-05] MEDS: IV NS 0.9% 1,000 ML IV PRN (22:10)
--- NOTE | 2019-01-05 22:45 | NUR ---
RN NOTE: SPOKE WITH PHARMACIST AYANNA. PER PHARMACIST, OK TO GIVE VANCO AT 2300. NEXT VANCO TROUGH TOMORROW 01/06/19 AT 2300.
[2019-01-05] MEDS: VANCOMYCIN 1 GM in IV D5W 250 ML IV SCH (22:58)
[2019-01-06] VITALS: BP 110/70
[2019-01-06] MEDS: PIPERACILLIN /TAZOBACTAM 3.375 G in IV D5W 50 ML IV SCH ×4 (00:01→18:17)
[2019-01-06] MEDS: HYDROCODONE/APAP 5/325MG 1 EACH TABLET PO PRN ×2 (00:47→20:25)
[2019-01-06] MEDS: ALBUMIN 25% 25 GM in PREMIX 1 EA IV SCH ×2 (01:04→10:25)
[2019-01-06 04:00] VITALS: BP 100/61
--- NOTE | 2019-01-06 07:00 | NUR ---
RN CLOSING NOTES: PATIENT ASLEEP BUT EASILY AROUSABLE. NO RESPIRATORY DISTRESS. NO PAIN. BEDSIDE REPORT GIVEN TO AM SHIFT NURSE FOR CONTINUITY OF CARE.
--- NOTE | 2019-01-06 07:10 | NUR ---
RN OPENING NOTES: PATIENT ASLEEP BUT EASILY AWAKENED. ON 2 L NC, NO RESPIRATORY DISTRESS. ON TELE MONITOR SINUS TACHY 115. (R) WRIST 18G INTACT PATENT, AND FLUSHING WELL. SAFETY PRECAUTIONS IMPLEMENTED. BED LOCKED AND IN LOWEST POSITION. UNDERWOOD PATENT AND DRAINING VENECIA URINE WITH SMALL SEDIMENTS. CALL LIGHT PLACED WITHIN REACH. SIDE RAILS UP X2. HOB ELEVATED. WILL CONT. TO MONITOR.
[2019-01-06 07:35] LABS: BASOPHILS # (AUTO) 0.1 /CMM (0.0-0.2); BASOPHILS % (AUTO) 0.4 % (0.0-2.0); EOSINOPHILS % (AUTO) 1.7 % (0.0-6.0); HEMATOCRIT 23 % (39-51); HEMOGLOBIN 7.1 g/dL (13.5-17.5); LYMPHOCYTES # (AUTO) 2.4 /CMM (0.8-4.8); LYMPHOCYTES % (AUTO) 9.8 % (20.0-44.0); MEAN CORPUSCULAR HGB CONC 31 g/dl (31.0-36.0); MEAN CORPUSCULAR VOLUME 82 fL (80-96); MONOCYTES # (AUTO) 1.3 /CMM (0.1-1.30); MONOCYTES % (AUTO) 5.5 % (2.0-12.0); NEUTROPHILS # (AUTO) 19.8 /CMM (1.8-8.9); NEUTROPHILS % (AUTO) 82.6 % (43.0-81.0); PLATELET COUNT (AUTO) 442 /CMM (150-450); RED BLOOD CELL COUNT(AUTO) 2.78 MIL/uL (4.5-6.0)
[2019-01-06] MEDS: BLOOD SUGAR DIAGNOSTIC 1 EACH STRIP IN SCH ×4 (07:48→21:12)
[2019-01-06 08:00] VITALS: BP 109/70
[2019-01-06 08:29] LABS: ALBUMIN 1.5 g/dL (3.4-5.0); BILIRUBIN,TOTAL 0.5 mg/dL (0.2-1.0); CREATININE 1.7 mg/dL (0.6-1.3); MAGNESIUM 1.7 mg/dL (1.8-2.4); PHOSPHORUS 2.5 mg/dL (2.5-4.9); POTASSIUM 3.9 mmol/L (3.5-5.1); TOTAL PROTEIN, SERUM 7.2 g/dL (6.4-8.2)
--- NOTE | 2019-01-06 08:35 | NUR ---
CALLED PHARMACY TO SEND ALBUMIN.
[2019-01-06] MEDS: POLYVINYL ALCOHOL 15 ML BOTTLE EACHEYE SCH ×3 (09:50→17:34)
[2019-01-06] MEDS: ASPIRIN 81 MG TAB.CHEW PO SCH (09:50)
[2019-01-06] MEDS: POLYETHYLENE GLYCOL 3350 17 GM POWD.PACK PO SCH (09:51)
[2019-01-06] MEDS: BACLOFEN (10 MG) 10 MG TABLET PO SCH ×3 (09:51→17:33)
[2019-01-06] MEDS: DIVALPROEX SODIUM 125 MG CAP.SPRINK PO SCH ×3 (09:51→17:33)
[2019-01-06] MEDS: GABAPENTIN 100 MG CAPSULE PO SCH ×3 (09:52→17:32)
[2019-01-06] MEDS: DAKINS QUARTER STRENGTH (0.125%) 480 ML BOTTLE TOP SCH (09:52)
[2019-01-06] MEDS: QUETIAPINE FUMARATE 100 MG TABLET PO SCH ×2 (09:52→17:33)
[2019-01-06] MEDS: MULTIVIT W/MINERALS 1 TAB TABLET PO SCH (09:52)
[2019-01-06] MEDS: INSULIN GLARGINE, 100 UNIT/ML CARTRIDGE SQ SCH (09:54)
[2019-01-06] MEDS: HEPARIN SODIUM, PORCINE 5000 UNITS/1 ML VIAL SQ SCH ×2 (11:04→18:00)
[2019-01-06 12:00] VITALS: BP 121/76
[2019-01-06] MEDS: VANCOMYCIN 1 GM in IV D5W 250 ML IV SCH ×2 (12:03→23:42)
[2019-01-06] MEDS ORDERED: MAGNESIUM OXIDE 400 MG TABLET PO SCH (13:00)
[2019-01-06] MEDS ORDERED: MAGNESIUM OXIDE 400 MG TABLET PO ONE (13:00)
[2019-01-06] MEDS: PROSOURCE / PROSTAT (PYXIS) 30 ML UDC GT SCH ×2 (13:24→17:33)
[2019-01-06] MEDS: ENSURE ENLIVE 237 ML LIQUID (VANILLA) PO SCH ×2 (13:25→17:33)
[2019-01-06] MEDS: INSULIN REGULAR, HUMAN 100 UNIT/ML 3 ML VIAL SQ PRN (14:10)
[2019-01-06 15:24] LABS: CREATININE, URINE 66.9 MG/DL (30.0-125.0)
[2019-01-06 16:00] VITALS: BP 117/88
[2019-01-06] MEDS: LACTOBACILLUS RHAMNOSUS GG 1 EACH CAP.SPRINK PO SCH (17:32)
[2019-01-06] MEDS: IV NS 0.9% 1,000 ML IV PRN (18:16)
--- NOTE | 2019-01-06 18:33 | NUR ---
H&H TRENDING DOWN. HOLD HEPARIN AT 1800. DR HOLMAN MADE AWARE.
--- NOTE | 2019-01-06 19:15 | NUR ---
RN OPENING NOTES: PATIENT ASLEEP BUT EASILY AROUSABLE. NO RESPIRATORY DISTRESS. LUNG SOUNDS CLEAR ON AUSCULTATION. NO PAIN. IV ACCESS ON (R) WRIST #18 INTACT, PATENT, AND FLUSHING WELL RUNNING NS AT 75 MLS/HR, TOLERATING WELL. SAFETY PRECAUTIONS IMPLEMENTED. BED LOCKED AND IN LOWEST POSITION. CALL LIGHT PLACED WITHIN REACH. WILL CONT. TO MONITOR. Addendum: 01/06/19 at 1932 by ZACKARY ALCANTARA RN ENDORSED BY AM SHIFT NURSE TO COLLECT SPUTUM. PATIENT UNABLE TO COUGH UP SPUTUM AT THIS TIME. CALLED RT IN TO ATTEMPT SPUTUM COLLECTION LATER.
--- NOTE | 2019-01-06 19:40 | NUR ---
SENIOR GAME DEVELOPER CLOSING NOTE NO SIGNIFICANT CHANGE DURING THE SHIFT. ALL NEEDS ATTENDED. BED LOCKED AND LOW, HOB ELEVATED 40 DEGREE. CALL LIGHT IN REACH, SIDE RAILS UP X3. ENDORSED TO PM NURSE FOR MANUEL.
--- NOTE | 2019-01-06 19:45 | NUR ---
RN NOTE: ASKED PATIENT IF I CAN PUT IN A NEW UNDERWOOD CATHETER PER ENDORSEMENT BY AM SHIFT NURSE ORDERED BY ISIAH HARTMAN. PATIENT STATES, "NO". RISKS AND BENEFITS EXPLAINED, PATIENT STILL REFUSED. Addendum: 01/07/19 at 0557 by ZACKARY ALCANTARA RN DR. EDOUARD MADE AWARE OF PATIENT'S REFUSAL. NO NEW ORDERS.
[2019-01-06 20:00] VITALS: BP 118/77
[2019-01-06] MEDS: SENNOSIDES 8.6 MG TABLET PO SCH (21:13)
--- NOTE | 2019-01-06 23:30 | NUR ---
RN NOTE: DR. EDOUARD MADE AWARE OF HGB 7.1, TRENDING DOWN FROM 8.8. CLARIFIED HEPARIN DOSE DUE AT 0200. PLATELET IS 442, PTT 31.6. PER MD, OK TO GIVE HEPARIN AND F/U WITH AM DOCTOR. WILL ENDORSE TO AM SHIFT NURSE.
[2019-01-06] MEDS ORDERED: VANCOMYCIN 1 GM VIAL ONE (23:37)
[2019-01-07] VITALS: BP 116/72
[2019-01-07] MEDS: PIPERACILLIN /TAZOBACTAM 3.375 G in IV D5W 50 ML IV SCH ×4 (00:59→18:18)
[2019-01-07] MEDS: HEPARIN SODIUM, PORCINE 5000 UNITS/1 ML VIAL SQ SCH ×3 (01:02→18:18)
[2019-01-07 04:00] VITALS: BP 123/65
[2019-01-07 06:29] LABS: BASOPHILS # (AUTO) 0.1 /CMM (0.0-0.2); BASOPHILS % (AUTO) 0.4 % (0.0-2.0); EOSINOPHILS % (AUTO) 4.7 % (0.0-6.0); HEMATOCRIT 24 % (39-51); HEMOGLOBIN 7.4 g/dL (13.5-17.5); LYMPHOCYTES # (AUTO) 2.3 /CMM (0.8-4.8); LYMPHOCYTES % (AUTO) 11.4 % (20.0-44.0); MEAN CORPUSCULAR HGB CONC 31 g/dl (31.0-36.0); MEAN CORPUSCULAR VOLUME 83 fL (80-96); MONOCYTES # (AUTO) 1.2 /CMM (0.1-1.30); MONOCYTES % (AUTO) 5.8 % (2.0-12.0); NEUTROPHILS # (AUTO) 15.6 /CMM (1.8-8.9); NEUTROPHILS % (AUTO) 77.7 % (43.0-81.0); PLATELET COUNT (AUTO) 455 /CMM (150-450); RED BLOOD CELL COUNT(AUTO) 2.88 MIL/uL (4.5-6.0); WHITE BLOOD COUNT (AUTO) 20.1 K/uL (4.3-11.0)
[2019-01-07 06:43] LABS: CALCIUM, SERUM 7.9 mg/dL (8.5-10.1); CREATININE 1.2 mg/dL (0.6-1.3); MAGNESIUM 1.6 mg/dL (1.8-2.4); POTASSIUM 3.4 mmol/L (3.5-5.1)
--- NOTE | 2019-01-07 07:10 | NUR ---
RN CLOSING NOTES: PATIENT IN BED, ASLEEP, BUT EASILY AWAKENED. NO RESPIRATORY DISTRESS. NO SOB. INFORMED AM SHIFT NURSE REGARDING HGB TRENDING DOWN AND TO F/U WITH AM MD REGARDING HEPARIN. NO ACTIVE BLEEDING. SAFETY PRECAUTIONS IMPLEMENTED. ALL NEEDS ATTENDED. ENDORSED TO AM SHIFT NURSE FOR CONTINUITY OF CARE.
[2019-01-07 08:00] VITALS: BP 102/64
[2019-01-07] MEDS: HYDROCODONE/APAP 5/325MG 1 EACH TABLET PO PRN ×2 (08:16→15:19)
[2019-01-07] MEDS: GABAPENTIN 100 MG CAPSULE PO SCH ×3 (08:36→18:05)
[2019-01-07] MEDS: QUETIAPINE FUMARATE 100 MG TABLET PO SCH ×2 (08:36→18:05)
[2019-01-07] MEDS: LACTOBACILLUS RHAMNOSUS GG 1 EACH CAP.SPRINK PO SCH ×2 (08:37→18:04)
[2019-01-07] MEDS: BLOOD SUGAR DIAGNOSTIC 1 EACH STRIP IN SCH ×4 (08:37→22:26)
[2019-01-07] MEDS: DIVALPROEX SODIUM 125 MG CAP.SPRINK PO SCH ×3 (08:37→18:04)
[2019-01-07] MEDS: BACLOFEN (10 MG) 10 MG TABLET PO SCH ×3 (08:37→18:05)
[2019-01-07] MEDS: ASPIRIN 81 MG TAB.CHEW PO SCH (08:37)
[2019-01-07] MEDS: MULTIVIT W/MINERALS 1 TAB TABLET PO SCH (08:38)
[2019-01-07] MEDS: POLYETHYLENE GLYCOL 3350 17 GM POWD.PACK PO SCH (08:38)
[2019-01-07] MEDS: INSULIN GLARGINE, 100 UNIT/ML CARTRIDGE SQ SCH (08:48)
[2019-01-07] MEDS: POLYVINYL ALCOHOL 15 ML BOTTLE EACHEYE SCH ×3 (08:49→18:04)
[2019-01-07] MEDS: PROSOURCE / PROSTAT (PYXIS) 30 ML UDC GT SCH ×3 (08:49→18:04)
[2019-01-07] MEDS: ENSURE ENLIVE 237 ML LIQUID (VANILLA) PO SCH ×3 (08:49→18:05)
[2019-01-07] MEDS: DAKINS QUARTER STRENGTH (0.125%) 480 ML BOTTLE TOP SCH (09:00)
[2019-01-07] MEDS ORDERED: POTASSIUM CHLORIDE 20 MEQ TAB.PRT.SR PO ONE (09:30)
[2019-01-07] MEDS ORDERED: MAGNESIUM OXIDE 400 MG TABLET PO ONE (09:30)
[2019-01-07] MEDS: VANCOMYCIN 1 GM in IV D5W 250 ML IV SCH ×2 (11:00→22:26)
[2019-01-07 12:00] VITALS: BP 115/69
[2019-01-07] MEDS: IV NS 0.9% 1,000 ML IV PRN (12:38)
[2019-01-07] MEDS: SOD FERRIC GLUC 125 MG in IV NS 0.9% 100 ML IV SCH (14:00)
[2019-01-07 16:00] VITALS: BP 112/69
--- NOTE | 2019-01-07 19:16 | NUR ---
RN CLOSING Patient remains A/Ox2, asking for a snack. On 1L O2 via NC, no SOB noted. Tele monitor attached, tachy HR 100-110, elevated t waves, denies chest pain. Wylie draining yellow clear dark yellow urine to gravity, stage 4 sacral ucler present. Received orders to removed wylie and replace & send off urine, however, upon explanation, patient refuses saying "I don't want that" x3. Sputum cx pending as patient unable to expectorate, with noted wet cough. Wound care completed on BLE. R wrist 18G running NS @75mL/hr. [place] given for pain as requested by patient/per orders. Crushed meds in apple sauce. Consent received for sacral debridement from sister via phone consent and placed in chart. Endorsed to noc RN for MANUEL.
--- NOTE | 2019-01-07 19:30 | NUR ---
NURSE EXAMINER NOTE PATIENT IN BED A/O X 2 ON 1L NC. NO S/S OF RESP DISTRESS. PATIENT TACHY ON THE MONITOR. PATIENT DENIES CHEST PAIN AT THIS TIME. PATIENT UNDERWOOD DRAINING TO GRAVITY DARK VENECIA WITH SEDIMENT AND BLOOD CLOTS NOTED PATIENT HAS 18G IN R WRIST PATENT AND INTACT NO S/S OF INFECTION OR INFILTRATION. POC DISCUSSED WITH PATIENT. SAFETY PRECAUTIONS IN PLACE, SIDE RAILS UP X 3 RN WILL CONTINUE TO MONITOR FOR CHANGES.
[2019-01-07 20:00] VITALS: BP 112/64
[2019-01-07] MEDS: SENNOSIDES 8.6 MG TABLET PO SCH (22:26)
[2019-01-08] VITALS: BP 121/77
[2019-01-08] MEDS: PIPERACILLIN /TAZOBACTAM 3.375 G in IV D5W 50 ML IV SCH ×4 (01:00→11:15)
[2019-01-08] MEDS: HEPARIN SODIUM, PORCINE 5000 UNITS/1 ML VIAL SQ SCH ×3 (02:56→18:07)
[2019-01-08 04:00] VITALS: BP 129/74
--- NOTE | 2019-01-08 06:00 | NUR ---
FIELD IRONWORKER NOTE UNABLE TO ADMINISTER 0600 ZOSYN IV SITE INFILTRATED UNABLE TO ESTABLISH NEW IV ACCESS. AWARE ORDER FOR MIDLINE PLACED. ENDORSED TO AM NURSE
[2019-01-08 06:40] LABS: CALCIUM, SERUM 7.7 mg/dL (8.5-10.1); MAGNESIUM 1.6 mg/dL (1.8-2.4); POTASSIUM 3.9 mmol/L (3.5-5.1)
[2019-01-08 06:41] LABS: BASOPHILS # (AUTO) 0.2 /CMM (0.0-0.2); EOSINOPHILS % (AUTO) 5.9 % (0.0-6.0); HEMATOCRIT 28 % (39-51); HEMOGLOBIN 8.5 g/dL (13.5-17.5); LYMPHOCYTES # (AUTO) 2.8 /CMM (0.8-4.8); MEAN CORPUSCULAR HGB CONC 30 g/dl (31.0-36.0); MEAN CORPUSCULAR VOLUME 82 fL (80-96); MONOCYTES # (AUTO) 0.8 /CMM (0.1-1.30); NEUTROPHILS # (AUTO) 11.5 /CMM (1.8-8.9); NEUTROPHILS % (AUTO) 71.1 % (43.0-81.0); PLATELET COUNT (AUTO) 343 /CMM (150-450); RED BLOOD CELL COUNT(AUTO) 3.46 MIL/uL (4.5-6.0); WHITE BLOOD COUNT (AUTO) 16.2 K/uL (4.3-11.0)
--- NOTE | 2019-01-08 07:30 | NUR ---
RN NOTES PATIENT WITH NI IV ACCESS. ATTEMPTED TO PUT IN IV BY CHARGE NURSE SOON BUT UNSUCCESSFUL. NURSING JUNIOR COPYWRITER NOTIFIED. PATIENT FOR MIDLINE INSERTION IN THE AFTERNOON. IV ZOSYN SCHEDULED AT 0600 PER DERRICK WORKER NOT GIVEN. PHARMACY AWARE.
--- NOTE | 2019-01-08 07:30 | NUR ---
PHYSICIAN INTERVENTIONAL CARDIOLOGIST AM NOTES PATIENT IN BED, EYES CLOSED, RESPONDS TO NAME AND TOUCH, A/O X 2. PERIODS OF CONFUSION.ON 2L NC. NO S/S OF RESP DISTRESS. PATIENT TACHY ON THE MONITOR. PATIENT DENIES CHEST PAIN AT THIS TIME. NO IV ACCESS OF THIS TIME DUE TO HOLISTIC PULSER REMOVED ACCESS EARLIER DUE TO RED RASHES THAT APPEARED ON THE ARM. PATIENT UNDERWOOD DRAINING TO GRAVITY DARK VENECIA WITH SEDIMENT. 750 ML OUT PUT. SEE NURSING FLOWSHEET FOR SKIN ISSUES. POC DISCUSSED WITH PATIENT. SAFETY PRECAUTIONS IN PLACE, SIDE RAILS UP X 3. WILL CONTINUE TO MONITOR FOR CHANGES.
[2019-01-08 08:00] VITALS: BP 133/76
--- NOTE | 2019-01-08 08:20 | NUR ---
WOUND CARE CONSULT: PT FOLLOWED BY SURGICAL AND PODIATRY TEAMS FOR WOUNDS. DEFER TO SURGICAL TEAMS FOR WOUND TREATMENT PLAN. DISCUSSED SKIN PROTECTION WITH NURSING STAFF. FIRST STEP LOW AIRLOSS MATTRESS ON ORDER. WILL SEE PRN. CURRENT ZION SCORE IS 12.
[2019-01-08] MEDS: BLOOD SUGAR DIAGNOSTIC 1 EACH STRIP IN SCH ×4 (08:24→22:03)
[2019-01-08] MEDS: INSULIN GLARGINE, 100 UNIT/ML CARTRIDGE SQ SCH (09:00)
[2019-01-08] MEDS: Magnesium 1GM/D5W 100ML PREMIX 100 ML IV SCH ×2 (09:24→11:14)
[2019-01-08] MEDS: POLYETHYLENE GLYCOL 3350 17 GM POWD.PACK PO SCH (09:24)
[2019-01-08] MEDS: MULTIVIT W/MINERALS 1 TAB TABLET PO SCH (09:25)
[2019-01-08] MEDS: BACLOFEN (10 MG) 10 MG TABLET PO SCH ×3 (09:25→18:01)
[2019-01-08] MEDS: ASPIRIN 81 MG TAB.CHEW PO SCH (09:25)
[2019-01-08] MEDS: GABAPENTIN 100 MG CAPSULE PO SCH ×3 (09:25→18:01)
[2019-01-08] MEDS: QUETIAPINE FUMARATE 100 MG TABLET PO SCH ×2 (09:25→18:01)
[2019-01-08] MEDS: LACTOBACILLUS RHAMNOSUS GG 1 EACH CAP.SPRINK PO SCH ×2 (09:25→18:00)
[2019-01-08] MEDS: DIVALPROEX SODIUM 125 MG CAP.SPRINK PO SCH ×3 (09:26→18:01)
[2019-01-08] MEDS: PROSOURCE / PROSTAT (PYXIS) 30 ML UDC GT SCH ×3 (09:27→18:06)
--- NOTE | 2019-01-08 09:30 | NUR ---
MEDICAL ART THERAPIST NOTES DUE MEDS GIVEN. AM CARE DONE.
[2019-01-08] MEDS: POLYVINYL ALCOHOL 15 ML BOTTLE EACHEYE SCH ×3 (09:46→18:05)
[2019-01-08] MEDS: DAKINS QUARTER STRENGTH (0.125%) 480 ML BOTTLE TOP SCH (09:46)
[2019-01-08] MEDS: ENSURE ENLIVE 237 ML LIQUID (VANILLA) PO SCH ×3 (09:46→18:05)
[2019-01-08] MEDS ORDERED: diphenhydrAMINE HCL/ZINC ACET CREAM 28.3 GM TUBE TP PRN (10:00)
--- NOTE | 2019-01-08 10:00 | NUR ---
RN NOTES TODD HENDRICKS RADIO ELECTRONICS OFFICER AT BEDSIDE EARLIER, PER HIM, OKAY FOR MIDLINE, DC ZOSYN AND VANCO IV FOR NOW AND HAVE INFECTIOUS DISEASE SEE THE PATIENT FOR CHANGE OF ATB REGIMEN. NEW ORDER RECEIVED TO GIVE BENADRYL 25 MG PO AND TOPICAL FOR THE RASHES IN THE RT FOREARM AND HAND.
[2019-01-08] MEDS: VANCOMYCIN 1 GM in IV D5W 250 ML IV SCH (11:00)
[2019-01-08] MEDS: diphenhydrAMINE HCL 25 MG CAPSULE PO PRN (11:22)
[2019-01-08 12:00] VITALS: BP 128/80
--- NOTE | 2019-01-08 14:20 | NUR ---
REGISTER IN CHANCERY NOTES IV MEDS NOT GIVEN ON TIME DUE TO MIDLINE JUST PLACED IN
[2019-01-08 16:00] VITALS: BP 130/72
[2019-01-08] MEDS: SOD FERRIC GLUC 125 MG in IV NS 0.9% 100 ML IV SCH (16:51)
--- NOTE | 2019-01-08 18:47 | NUR ---
RN NOTES ALL NEED MET AT THIS TIME. PATIENT WITH VERY POOR ORAL INTAKE DESPITE ENCOURAGEMENT. PM CARE DONE. PRESCRIBED WOUND TREATMENT DONE. TURNED AND REPOSITIONED. NO OTHER SIGNIFICANT CHANGE IN CONDITION. WILL ENDORSE TO NEXT SHIFT FOR MANUEL.
--- NOTE | 2019-01-08 19:18 | NUR ---
TELE/RN NOTES RECEIVED PT. LYING IN BED. PT. IS AWAKE, ALERT AND ORIENTED X 1-2 WITH EPISODES OF CONFUSION NOTED. BREATHING EVEN AND UNLABORED ON 2LPM O2 VIA NC. NO SOB, RESPIRATORY DISTRESS OR COMPLAINTS OF PAIN NOTED AT THIS TIME. PT. WITH EXTERNAL MINE ANALYST PRESENT AND INTACT CURRENT RHYTHM = SINUS RHYTHM HR 99. PT. WITH LEFT UPPER ARM MIDLINE PRESENT, PATENT AND INTACT ADMINISTERING TO PT. NS @ 75 ML/HR. PT. WITH UNDERWOOD CATHETER PRESENT, PATENT AND INTACT DRAINING VENECIA COLORED URINE. SAFETY, ASPIRATION AND ISOLATION PRECAUTIONS IMPLEMENTED AND IN PLACE. BED LOCKED AND IN LOWEST POSITION, SIDE RAILS UP X3, BED ALARM ON, CALL LIGHT WITHIN REACH, WILL CONTINUE TO MONITOR.
[2019-01-08 20:00] VITALS: BP 116/76
[2019-01-08] MEDS: LINEZOLID RTU BAG 600 MG in PREMIX 1 EA IV SCH (21:16)
[2019-01-08] MEDS: IV NS 0.9% 1,000 ML IV PRN (21:16)
[2019-01-08] MEDS: SENNOSIDES 8.6 MG TABLET PO SCH (21:59)
[2019-01-08] MEDS: MEROPENEM 1 G in IV NS 0.9% 100 ML IV SCH (23:31)
[2019-01-09] VITALS: BP 127/72
[2019-01-09] MEDS: HEPARIN SODIUM, PORCINE 5000 UNITS/1 ML VIAL SQ SCH ×3 (01:52→17:27)
[2019-01-09 04:00] VITALS: BP 92/66
[2019-01-09] MEDS: HYDROCODONE/APAP 5/325MG 1 EACH TABLET PO PRN (05:21)
[2019-01-09] MEDS: MEROPENEM 1 G in IV NS 0.9% 100 ML IV SCH ×3 (05:59→21:19)
--- NOTE | 2019-01-09 06:42 | NUR ---
TELE/RN NOTES PT. IS LYING IN BED RESTING. BREATHING EVEN AND UNLABORED ON 2LPM O2 VIA NC. NO SOB, RESPIRATORY DISTRESS OR COMPLAINTS OF PAIN NOTED AT THIS TIME. PT. WITH EXTERNAL BOLT MAKER PRESENT AND INTACT CURRENT RHYTHM = SINUS RHYTHM HR 99. PT. WITH LEFT UPPER ARM MIDLINE PRESENT, PATENT AND INTACT ADMINISTERING TO PT. NS @ 75 ML/HR. PT. WITH UNDERWOOD CATHETER PRESENT, PATENT AND INTACT DRAINING VENECIA COLORED URINE. ALL PT. NEEDS MET. PT. REFUSED BED BATH AND TURNING AND REPOSITIONING. EDUCATED PT. ON RISK VS BENEFIT. PT. CONTINUED TO REFUSE. SAFETY, ASPIRATION AND ISOLATION PRECAUTIONS IMPLEMENTED AND IN PLACE. BED LOCKED AND IN LOWEST POSITION, SIDE RAILS UP X3, BED ALARM ON, CALL LIGHT WITHIN REACH, WILL ENDORSE TO DAYSALFT NURSE FOR CONTINUITY OF CARE.
[2019-01-09 06:57] LABS: BASOPHILS % (AUTO) 0.3 % (0.0-2.0); EOSINOPHILS % (AUTO) 2.6 % (0.0-6.0); HEMATOCRIT 25 % (39-51); HEMOGLOBIN 7.9 g/dL (13.5-17.5); LYMPHOCYTES # (AUTO) 2.3 /CMM (0.8-4.8); LYMPHOCYTES % (AUTO) 14.3 % (20.0-44.0); MEAN CORPUSCULAR HGB CONC 32 g/dl (31.0-36.0); MEAN CORPUSCULAR VOLUME 82 fL (80-96); MONOCYTES # (AUTO) 1.3 /CMM (0.1-1.30); NEUTROPHILS # (AUTO) 12.2 /CMM (1.8-8.9); NEUTROPHILS % (AUTO) 74.8 % (43.0-81.0); PLATELET COUNT (AUTO) 521 /CMM (150-450); RED BLOOD CELL COUNT(AUTO) 3.04 MIL/uL (4.5-6.0); WHITE BLOOD COUNT (AUTO) 16.3 K/uL (4.3-11.0)
--- NOTE | 2019-01-09 07:00 | NUR ---
HEAD PAPER TESTER NOTES PATIENT RECIEVED FROM [facility] PATIENT IS RESTING IN BED. PATIENT IS AWAKE AND ORIENTED A/OX2 . PATIENT IS COOPERATIVE WITH CARE AND UNDERSTANDS IF PROCEDURES ARE EXPLAINED. PATIENT IS ON NS 2L AND SATURATING WELL. PATIENT SHOWS NO SIGNS OF RESPIRATORY DISTRESS. PATIENT ON TELE MONITOR NS . PATIENT IS CURRENTLY HAS A MIDLINE INTACT AND PATIENT HAS NS 75 ML/HR . PATIENT HAS UNDERWOOD PRESENT AND INTACT AND PATIENT. PATIENT HAS BEEN INFORMED ABOUT CARE AND PAIN MANAGEMENT. PATIENT IS TO BE REPOSITION PER HOSPITAL PROTOCOL BED AT LOWEST POSITION . CALL LIGHT WITH IN REACH 2X SIDE RAILS UP. WILL CONTINUE TO MONITOR Addendum: 01/09/19 at 0844 by EULALIO العراقي RN HEAD PAPER TESTER NOTES PATIENT RECIEVED FROM [facility] PATIENT IS RESTING IN BED. PATIENT IS AWAKE AND ORIENTED A/OX2 . PATIENT IS COOPERATIVE WITH CARE AND UNDERSTANDS IF PROCEDURES ARE EXPLAINED. PATIENT IS ON NS 2L AND SATURATING WELL. PATIENT SHOWS NO SIGNS OF RESPIRATORY DISTRESS. PATIENT ON TELE MONITOR NS . PATIENT IS CURRENTLY HAS A MIDLINE INTACT AND PATIENT HAS NS 75 ML/HR . PATIENT HAS UNDERWOOD PRESENT AND INTACT AND PATIENT. PATIENT HAS BILATERAL EDEMA UPPER EXTREMITIES WITH REDNESS PATIENT HAS BEEN INFORMED ABOUT CARE AND PAIN MANAGEMENT. PATIENT IS TO BE REPOSITION PER HOSPITAL PROTOCOL BED AT LOWEST POSITION . CALL LIGHT WITH IN REACH 2X SIDE RAILS UP. WILL CONTINUE TO MONITOR
[2019-01-09 07:07] LABS: CALCIUM, SERUM 7.7 mg/dL (8.5-10.1); CREATININE 0.8 mg/dL (0.6-1.3); MAGNESIUM 1.7 mg/dL (1.8-2.4)
[2019-01-09 08:00] VITALS: BP 125/76
[2019-01-09 08:03] LABS: EOSINOPHILS % (MANUAL) 2 % (0-4); LYMPHOCYTES % (MANUAL) 13 % (16-48); MONOCYTES % (MANUAL) 6 % (0-11.0); NEUTROPHILS % (MANUAL) 79 (42-76)
[2019-01-09] MEDS: BLOOD SUGAR DIAGNOSTIC 1 EACH STRIP IN SCH ×4 (08:03→21:27)
[2019-01-09] MEDS: INSULIN GLARGINE, 100 UNIT/ML CARTRIDGE SQ SCH (11:02)
[2019-01-09] MEDS: QUETIAPINE FUMARATE 100 MG TABLET PO SCH ×2 (11:05→17:26)
[2019-01-09] MEDS: BACLOFEN (10 MG) 10 MG TABLET PO SCH ×3 (11:06→17:26)
[2019-01-09] MEDS: POLYETHYLENE GLYCOL 3350 17 GM POWD.PACK PO SCH (11:06)
[2019-01-09] MEDS: GABAPENTIN 100 MG CAPSULE PO SCH ×3 (11:06→17:26)
[2019-01-09] MEDS: ASPIRIN 81 MG TAB.CHEW PO SCH (11:07)
[2019-01-09] MEDS: DIVALPROEX SODIUM 125 MG CAP.SPRINK PO SCH ×3 (11:07→17:26)
[2019-01-09] MEDS: LACTOBACILLUS RHAMNOSUS GG 1 EACH CAP.SPRINK PO SCH ×2 (11:07→17:26)
[2019-01-09] MEDS: LINEZOLID RTU BAG 600 MG in PREMIX 1 EA IV SCH ×2 (11:07→21:53)
[2019-01-09] MEDS: ENSURE ENLIVE 237 ML LIQUID (VANILLA) PO SCH ×3 (11:07→17:00)
[2019-01-09] MEDS: PROSOURCE / PROSTAT (PYXIS) 30 ML UDC GT SCH ×3 (11:08→17:00)
[2019-01-09] MEDS: DAKINS QUARTER STRENGTH (0.125%) 480 ML BOTTLE TOP SCH (11:08)
[2019-01-09] MEDS: THERAHONEY GEL 1.5 OZ TUBE TP SCH (11:08)
[2019-01-09] MEDS: POLYVINYL ALCOHOL 15 ML BOTTLE EACHEYE SCH ×3 (11:08→17:59)
[2019-01-09] MEDS: Magnesium 1GM/D5W 100ML PREMIX 100 ML IV SCH ×2 (11:09→13:50)
[2019-01-09] MEDS: MULTIVIT W/MINERALS 1 TAB TABLET PO SCH (11:11)
[2019-01-09] MEDS: POTASSIUM CHLORIDE 20 MEQ TAB.PRT.SR PO SCH ×3 (11:24→13:50)
--- NOTE | 2019-01-09 11:50 | NUR ---
RN MS NOTES PATIENT REFUSED LANTUS - REPEATED 3X TIMES PATIENT WAS INFORMED RISK AND BENEFITS TO REFUSING MEDICATION.
[2019-01-09] MEDS: SOD FERRIC GLUC 125 MG in IV NS 0.9% 100 ML IV SCH (13:48)
[2019-01-09 16:00] VITALS: BP 105/69
--- NOTE | 2019-01-09 19:30 | NUR ---
RN MS NOTES PATIENT IS A/O X2 PATIENT IS LAYING IN BED . PATIENT IS EASILY WOKEN WITH NAME AND TOUCH , WITH EPISODES OF CONFUSION. PATIENT BREATHING IS EVEN AND ULABORED. PATIENT IS 2LPM O2 VIA NC. PATIENT SHOWS NO SIGNS OF RESPIRATORY DISTRESS, OR COMPLAINTS OF PLAIN. AT THIS TIME. PATIENT HAS LEFT UPPER ARM MIDLINE PRESENT , INTACT AND PATENT. DRESSING IS C/D/I. PATIENT HAS UNDERWOOD CATHETER PRESENT, PATENT AND INTACT DRAINING. PATIENT BED LOWEST AND LOCKED POSITION, 2X SIDE RAILS UP CALL LIGHT WITH IN REACH
[2019-01-09 20:00] VITALS: BP 112/72
[2019-01-09] MEDS: SENNOSIDES 8.6 MG TABLET PO SCH (21:19)
--- NOTE | 2019-01-09 21:50 | NUR ---
MS RN NOTES RECEIVE DPT IN BED AWAKE AND ABLE TO MAKE NEEDS KNOWN. PT A/O X2 WITH PERIODS OF CONFUSION. RESPIRATIONS EVEN AND UNLABORED WITH NO S/S OF ACUTE DISTRESS OR SOB NOTED. NO COMPLAINTS OF PAIN AT THIS TIME. PT WITH LEFT UPPER ARM MIDLINE, PATENT AND INTACT INFUSING NS @75CC/HR. PT WITH UNDERWOOD CATHETER PRESENT, PATENT AND INTACT DRAINING. SAFETY MEASURES IN PLACE WITH BED IN LOWEST LOCKED POSITION WITH SIDE RAILS UP X2. CALL LIGHT WITHIN REACH. WILL CONTINUE TO MONITOR.
[2019-01-10] VITALS: BP 104/69
[2019-01-10] MEDS: HEPARIN SODIUM, PORCINE 5000 UNITS/1 ML VIAL SQ SCH (02:00)
[2019-01-10 04:00] VITALS: BP 112/77
[2019-01-10] MEDS: HYDROCODONE/APAP 5/325MG 1 EACH TABLET PO PRN ×4 (04:01→21:48)
[2019-01-10] MEDS: MEROPENEM 1 G in IV NS 0.9% 100 ML IV SCH ×3 (06:13→23:13)
[2019-01-10 06:33] LABS: BASOPHILS # (AUTO) 0.1 /CMM (0.0-0.2); BASOPHILS % (AUTO) 0.8 % (0.0-2.0); EOSINOPHILS % (AUTO) 4.9 % (0.0-6.0); HEMATOCRIT 22 % (39-51); LYMPHOCYTES # (AUTO) 2.4 /CMM (0.8-4.8); LYMPHOCYTES % (AUTO) 16.2 % (20.0-44.0); MEAN CORPUSCULAR HGB CONC 32 g/dl (31.0-36.0); MEAN CORPUSCULAR VOLUME 82 fL (80-96); MONOCYTES # (AUTO) 1.4 /CMM (0.1-1.30); MONOCYTES % (AUTO) 9.8 % (2.0-12.0); NEUTROPHILS # (AUTO) 10.1 /CMM (1.8-8.9); NEUTROPHILS % (AUTO) 68.3 % (43.0-81.0); PLATELET COUNT (AUTO) 415 /CMM (150-450); RED BLOOD CELL COUNT(AUTO) 2.67 MIL/uL (4.5-6.0); WHITE BLOOD COUNT (AUTO) 14.8 K/uL (4.3-11.0)
[2019-01-10 06:43] LABS: CALCIUM, SERUM 7.4 mg/dL (8.5-10.1); CREATININE 0.7 mg/dL (0.6-1.3); MAGNESIUM 1.8 mg/dL (1.8-2.4); PHOSPHORUS 2.2 mg/dL (2.5-4.9); POTASSIUM 3.2 mmol/L (3.5-5.1)
[2019-01-10 06:48] LABS: HEMOGLOBIN 6.9 g/dL (13.5-17.5)
--- NOTE | 2019-01-10 07:30 | NUR ---
MS RN NOTES PT NOTED WITH H/H 6.11/05. MD CALLED MADE AWARE. NEW ORDER FOR 1 UNIT PRBC.
--- NOTE | 2019-01-10 07:35 | NUR ---
MS RN NOTES RECEIVED PATIENT AWAKE IN THE BED. A/OX2. NO SOB AND DISCOMFORT NOTED AT THIS TIME. PATIENT ON 2L NASAL CANNULA. LEFT UPPER ARM MIDLINE PATENT RUNNING NS @ 75ML/H. CALL LIGHT WITHIN REACH BED AT THE LOWEST POSITION LOCKED.
--- NOTE | 2019-01-10 07:40 | NUR ---
MS RN NOTES PT IN BED AWAKE AND ABLE TO MAKE NEEDS KNOWN. PT A/O X2 WITH PERIODS OF CONFUSION. RESPIRATIONS EVEN AND UNLABORED WITH NO S/S OF ACUTE DISTRESS OR SOB NOTED THROUGHOUT SHIFT. NO COMPLAINTS OF PAIN AT THIS TIME. PT KEPT CLEAN, DRY, AND COMFORTABLE. PT WITH LEFT UPPER ARM MIDLINE, PATENT AND INTACT INFUSING NS @75CC/HR. PT WITH UNDERWOOD CATHETER PRESENT, PATENT AND INTACT DRAINING. SAFETY MEASURES IN PLACE WITH BED IN LOWEST LOCKED POSITION WITH SIDE RAILS UP X2. CALL LIGHT WITHIN REACH. WILL ENDORSE TO ONCOMING NURSE FOR MANUEL.
[2019-01-10] MEDS: BLOOD SUGAR DIAGNOSTIC 1 EACH STRIP IN SCH ×4 (07:48→21:57)
[2019-01-10 08:00] VITALS: BP 113/73
--- NOTE | 2019-01-10 08:06 | NUR ---
MS Nurse, left message for blood transfusion consent his sister Jazzmine [phone] waiting for returned call
[2019-01-10] MEDS: ASPIRIN 81 MG TAB.CHEW PO SCH (09:00)
[2019-01-10] MEDS: POLYETHYLENE GLYCOL 3350 17 GM POWD.PACK PO SCH (09:00)
[2019-01-10] MEDS: INSULIN GLARGINE, 100 UNIT/ML CARTRIDGE SQ SCH (09:00)
[2019-01-10 09:10] LABS: EOSINOPHILS % (MANUAL) 2 % (0-4); LYMPHOCYTES % (MANUAL) 16 % (16-48); MONOCYTES % (MANUAL) 8 % (0-11.0); NEUTROPHILS % (MANUAL) 74 (42-76)
[2019-01-10] MEDS: LINEZOLID RTU BAG 600 MG in PREMIX 1 EA IV SCH ×2 (09:23→21:01)
[2019-01-10] MEDS: PROSOURCE / PROSTAT (PYXIS) 30 ML UDC GT SCH ×3 (09:29→19:36)
[2019-01-10] MEDS: DIVALPROEX SODIUM 125 MG CAP.SPRINK PO SCH ×3 (09:30→18:33)
[2019-01-10] MEDS: GABAPENTIN 100 MG CAPSULE PO SCH ×3 (09:30→18:34)
[2019-01-10] MEDS: MULTIVIT W/MINERALS 1 TAB TABLET PO SCH (09:30)
[2019-01-10] MEDS: QUETIAPINE FUMARATE 100 MG TABLET PO SCH ×2 (09:30→18:35)
[2019-01-10] MEDS: LACTOBACILLUS RHAMNOSUS GG 1 EACH CAP.SPRINK PO SCH ×2 (09:30→18:34)
[2019-01-10] MEDS: BACLOFEN (10 MG) 10 MG TABLET PO SCH ×3 (09:31→18:34)
[2019-01-10] MEDS: DAKINS QUARTER STRENGTH (0.125%) 480 ML BOTTLE TOP SCH (09:34)
[2019-01-10] MEDS: THERAHONEY GEL 1.5 OZ TUBE TP SCH (09:34)
--- NOTE | 2019-01-10 09:47 | NUR ---
MS RN NOTES ASPIRIN NOT GIVEN D/T LOW HGB 6.9 , INSULIN NOT ADMINISTERED LOW BS 90 AND NO MIRALAX ADMINISTERED PT HAD LOSE STOOL.
[2019-01-10] MEDS: ENSURE ENLIVE 237 ML LIQUID (VANILLA) PO SCH ×3 (09:49→19:36)
[2019-01-10] MEDS: POTASSIUM CHLORIDE 20 MEQ TAB.PRT.SR PO SCH ×4 (10:00→14:17)
--- NOTE | 2019-01-10 10:07 | NUR ---
MS RN NOTES CALLED CHRISTINA SISTER FOR BLOOD TRANSFUSION CONCEIT. AND LEFT A MSG.
[2019-01-10] MEDS ORDERED: K PHOS NEUTRAL 250 MG TABLET PO ONE (11:00)
--- NOTE | 2019-01-10 11:10 | NUR ---
MS RN NOTES DESPITE THE EXPLANATION AND IMPORTANCE OF TAKING K DUR TO PATIENT, HE REFUSED THE MED. MED WAS OPENED AND WASTED.
[2019-01-10 12:00] VITALS: BP 113/73
[2019-01-10 12:45] LABS: HEMOGLOBIN 7.1 g/dL (13.5-17.5)
[2019-01-10] MEDS: POLYVINYL ALCOHOL 15 ML BOTTLE EACHEYE SCH ×3 (12:52→18:44)
[2019-01-10] MEDS: IV NS 0.9% 1,000 ML IV PRN (13:09)
--- NOTE | 2019-01-10 14:26 | NUR ---
MS RN NOTES 2 DOSES OF K DUR GIVEN TO PT.
[2019-01-10] MEDS: SOD FERRIC GLUC 125 MG in IV NS 0.9% 100 ML IV SCH (14:28)
--- NOTE | 2019-01-10 14:39 | NUR ---
MS RN NOTES INFORMED MINNIE COTO ABOUT THE 7.1 HGB . PATIENT HAD 1 UNIT BLOOD TRANSFUSION AND HAD MULTIPLE CALLS TO PATIENT`S SISTER , LEFT VOICE MSG BUT NO CALL BACK RECEIVED. MINNIE COTO AWARE OF THE 1 UNIT HOLD.
[2019-01-10 16:00] VITALS: BP 136/83
--- NOTE | 2019-01-10 19:10 | NUR ---
MS RN NOTES PATIENT IS STABLE .ENDORSED TO ORACLE DBA NURSE FOR MANUEL.
[2019-01-10 20:38] VITALS: BP 124/76
[2019-01-10] MEDS: SENNOSIDES 8.6 MG TABLET PO SCH (21:47)
[2019-01-10] MEDS: INSULIN REGULAR, HUMAN 100 UNIT/ML 3 ML VIAL SQ PRN (21:58)
[2019-01-11] MEDS: HYDROCODONE/APAP 5/325MG 1 EACH TABLET PO PRN ×3 (04:20→16:28)
--- NOTE | 2019-01-11 05:14 | NUR ---
MISCELLANEOUS ORDER BY DR. RUBIO Called lab spoke with Raul, requested to report sensitivities of 2 organism to Meropenem and Ertapenem per Dr. Rubio/ID. Per Raul/lab to follow up report, Esther/MICHELE aware.
[2019-01-11] MEDS: IV NS 0.9% 1,000 ML IV PRN (06:16)
[2019-01-11] MEDS: MEROPENEM 1 G in IV NS 0.9% 100 ML IV SCH ×2 (06:18→14:40)
--- NOTE | 2019-01-11 06:21 | NUR ---
END OF SHIFT REPORT Patient in bed, remains on low fow oxygen at 2LPM, tolerating well with no SOB. DAVID Midline patent and intact, IVF infusing, IV antibiotic as scheduled, Afebrile overnight. Almaguer cath to gravity with adequate output. Turning and repositioning schedule followed. Isolation precaution, PPE utilized.
--- NOTE | 2019-01-11 06:46 | NUR ---
REFUSED AM LAB rv technician reported patient refused lab draw. Educated patient but declined, refused x3. Will retry with am Nurse.
--- NOTE | 2019-01-11 07:20 | NUR ---
RN INITIAL NOTE PATIENT IN BED, AWAKE AND ALERT X3. ON 2L NC NO COMPLAINS OF ANY SOB NOR PAIN. HAS A UNDERWOOD CATH WITH CLEAR AND YELLOW URINE. HAS A LEFT UA MIDLINE WITH NS AT 75 ML/HR. PER NOC SHIFT RN, PATIENT REFUSED AM LABS. BED LOCKED AND IN LOWEST POSITION. CALL LIGHT WITHIN REACH. WILL CONTINUE TO MONITOR
--- NOTE | 2019-01-11 07:30 | NUR ---
RN NOTE CALLED LAB REGARDING DR CHANEL'S REQUEST REGARDING THE SENSITIVITY OF THE PATIENT'S WOUND CULTURE TO 3 ANTIBIOTICS. PER LAB, IT IS ALREADY IN THE SYSTEM
[2019-01-11] MEDS: BLOOD SUGAR DIAGNOSTIC 1 EACH STRIP IN SCH ×3 (07:50→17:31)
[2019-01-11 08:00] VITALS: BP 113/76
[2019-01-11] MEDS: POLYETHYLENE GLYCOL 3350 17 GM POWD.PACK PO SCH (08:08)
[2019-01-11] MEDS: QUETIAPINE FUMARATE 100 MG TABLET PO SCH ×2 (08:09→16:28)
[2019-01-11] MEDS: ASPIRIN 81 MG TAB.CHEW PO SCH (08:09)
[2019-01-11] MEDS: BACLOFEN (10 MG) 10 MG TABLET PO SCH ×3 (08:09→16:28)
[2019-01-11] MEDS: GABAPENTIN 100 MG CAPSULE PO SCH ×3 (08:09→16:28)
[2019-01-11] MEDS: DIVALPROEX SODIUM 125 MG CAP.SPRINK PO SCH ×3 (08:09→16:28)
[2019-01-11] MEDS: PROSOURCE / PROSTAT (PYXIS) 30 ML UDC GT SCH ×3 (08:10→16:28)
[2019-01-11] MEDS: MULTIVIT W/MINERALS 1 TAB TABLET PO SCH (08:10)
[2019-01-11] MEDS: LACTOBACILLUS RHAMNOSUS GG 1 EACH CAP.SPRINK PO SCH ×2 (08:10→16:28)
[2019-01-11] MEDS: ENSURE ENLIVE 237 ML LIQUID (VANILLA) PO SCH ×3 (08:11→16:28)
[2019-01-11] MEDS: DAKINS QUARTER STRENGTH (0.125%) 480 ML BOTTLE TOP SCH (08:17)
[2019-01-11] MEDS: POLYVINYL ALCOHOL 15 ML BOTTLE EACHEYE SCH ×3 (08:18→16:29)
[2019-01-11] MEDS: LINEZOLID RTU BAG 600 MG in PREMIX 1 EA IV SCH (08:18)
[2019-01-11] MEDS: THERAHONEY GEL 1.5 OZ TUBE TP SCH (08:18)
[2019-01-11] MEDS: INSULIN GLARGINE, 100 UNIT/ML CARTRIDGE SQ SCH (09:00)
--- NOTE | 2019-01-11 09:29 | NUR ---
RN NOTE PATIENT'S BS 79. REFUSING TO EAT, JUST WANTS COFFEE. INSULIN LANTUS NOT ADMINISTERED. WILL RECHECK AT 1200
[2019-01-11 09:50] LABS: BASOPHILS # (AUTO) 0.1 /CMM (0.0-0.2); BASOPHILS % (AUTO) 0.6 % (0.0-2.0); EOSINOPHILS % (AUTO) 5.9 % (0.0-6.0); HEMATOCRIT 24 % (39-51); HEMOGLOBIN 7.7 g/dL (13.5-17.5); LYMPHOCYTES # (AUTO) 2.3 /CMM (0.8-4.8); LYMPHOCYTES % (AUTO) 19.4 % (20.0-44.0); MEAN CORPUSCULAR HGB CONC 32 g/dl (31.0-36.0); MEAN CORPUSCULAR VOLUME 83 fL (80-96); MONOCYTES # (AUTO) 1.2 /CMM (0.1-1.30); MONOCYTES % (AUTO) 10.1 % (2.0-12.0); NEUTROPHILS # (AUTO) 7.7 /CMM (1.8-8.9); PLATELET COUNT (AUTO) 469 /CMM (150-450); RED BLOOD CELL COUNT(AUTO) 2.93 MIL/uL (4.5-6.0)
[2019-01-11 09:58] LABS: CALCIUM, SERUM 7.3 mg/dL (8.5-10.1); CREATININE 0.8 mg/dL (0.6-1.3); MAGNESIUM 1.4 mg/dL (1.8-2.4); PHOSPHORUS 2.6 mg/dL (2.5-4.9); POTASSIUM 3.5 mmol/L (3.5-5.1)
[2019-01-11] MEDS: SOD FERRIC GLUC 125 MG in IV NS 0.9% 100 ML IV SCH (13:40)
[2019-01-11] MEDS ORDERED: MAGNESIUM OXIDE 400 MG TABLET PO ONE (15:00)
[2019-01-11] MEDS ORDERED: Prosource GT (15:17)
[2019-01-11] MEDS ORDERED: ERTA1VIA4 IJ (15:17)
[2019-01-11] MEDS ORDERED: SODI473S8 TOP (15:17)
[2019-01-11] MEDS ORDERED: LACT1CAP72 PO (15:17)
[2019-01-11] MEDS ORDERED: COLL30OI TP (15:17)
[2019-01-11] MEDS ORDERED: LINE600T13 PO (15:17)
[2019-01-11] MEDS ORDERED: LACT-246 PO (15:17)
[2019-01-11 16:00] VITALS: BP 104/85
--- NOTE | 2019-01-11 17:04 | NUR ---
RN NOTE REPORT GIVEN TO MICHELE LOFTON AT [facility]. ROOM 29C
--- NOTE | 2019-01-11 17:06 | NUR ---
RN NOTE CALLED CHRISTINA, PATIENT'S SISTER. NO ANSWER. LEFT A VOICEMAIL TO LET HER KNOW ABOUT THE DISCHARGE
[2019-01-11] MEDS: diphenhydrAMINE HCL 25 MG CAPSULE PO PRN (17:27)
--- NOTE | 2019-01-11 18:18 | NUR ---
CORN CUTTER NOTE PATIENT IN BED, AWAKE AND ALERT. WOUND TX DONE. PATIENT REFUSED TO HAVE HIS EXTREMITIES PICTURES TAKEN, ONLY THE SACRAL. EXPLAINED TO HIM THE IMPORTANCE OF DOCUMENTING WOUNDS, HE JUST AGREED TO TAKE THE SACRAL PHOTO. PATIENT IS ALERT AND ORIENTED X4. LEFT WITH A UNDERWOOD CATH AND A LEFT UA MIDLINE. NORCO WAS GIVEN BEFORE HE LEFT FOR PAIN. MG WAS REPLACED VIA PO MG OX. LAST BS WAS CHECKED, IT WAS 87. NO INSULIN COVERAGE GIVEN. PATIENT IS GOING TO [facility]. GOT A CALL BACK FROM THE PATIENT'S SISTER. SHE IS AWARE ABOUT THE DC.
== END 2019-01-11 18:30 | DRG 710 ==
LOC: ER 10:52 → TELE1 13:19 → MEDSG1 01-09 10:30
PROVIDERS: ADMIT Nurse Practitioner Acute Care; ATTEND Nurse Practitioner Acute Care
PROC: B547ZZA Ultrasonography of Left Subclavian Vein, Guidance (ICD-10-PCS; principal; 2019-01-08)
PROC: 05H633Z Insertion of Infusion Device into Left Subclavian Vein, Percutaneous Approach (ICD-10-PCS; principal; 2019-01-08)
PROC: 0KBN0ZZ Excision of Right Hip Muscle, Open Approach (ICD-10-PCS; principal; 2019-01-08)
PROC: 0KBP0ZZ Excision of Left Hip Muscle, Open Approach (ICD-10-PCS; principal; 2019-01-08)
DX: A41.9 Sepsis, unspecified organism (principal); N17.0 Acute kidney failure with tubular necrosis; E43 Unspecified severe protein-calorie malnutrition; J18.9 Pneumonia, unspecified organism; L89.154 Pressure ulcer of sacral region, stage 4; J96.01 Acute respiratory failure with hypoxia; J96.02 Acute respiratory failure with hypercapnia; G92 Toxic encephalopathy; L89.314 Pressure ulcer of right buttock, stage 4; L89.324 Pressure ulcer of left buttock, stage 4; R53.2 Functional quadriplegia; N39.0 Urinary tract infection, site not specified; R65.20 Severe sepsis without septic shock; I69.354 Hemiplegia and hemiparesis following cerebral infarction affecting left non-dominant side; D63.8 Anemia in other chronic diseases classified elsewhere; E11.40 Type 2 diabetes mellitus with diabetic neuropathy, unspecified; Z79.4 Long term (current) use of insulin; Z79.82 Long term (current) use of aspirin; E83.42 Hypomagnesemia; E86.0 Dehydration; I10 Essential (primary) hypertension; E88.09 Other disorders of plasma-protein metabolism, not elsewhere classified; D68.69 Other thrombophilia; M62.50 Muscle wasting and atrophy, not elsewhere classified, unspecified site; B96.5 Pseudomonas (aeruginosa) (mallei) (pseudomallei) as the cause of diseases classified elsewhere; M20.42 Other hammer toe(s) (acquired), left foot; M20.41 Other hammer toe(s) (acquired), right foot; E11.51 Type 2 diabetes mellitus with diabetic peripheral angiopathy without gangrene; E11.621 Type 2 diabetes mellitus with foot ulcer; L97.429 Non-pressure chronic ulcer of left heel and midfoot with unspecified severity; L97.519 Non-pressure chronic ulcer of other part of right foot with unspecified severity; L97.929 Non-pressure chronic ulcer of unspecified part of left lower leg with unspecified severity; E11.69 Type 2 diabetes mellitus with other specified complication; M46.28 Osteomyelitis of vertebra, sacral and sacrococcygeal region; Z79.84 Long term (current) use of oral hypoglycemic drugs; B95.62 Methicillin resistant Staphylococcus aureus infection as the cause of diseases classified elsewhere
CPT/HCPCS: 36415; 71045-TC; 72220-TC; 80048-TC; 80053-TC; 80076-TC; 80202-TC; 81000-TC; 82570-TC; 82962-TC; 83540-TC; 83605-TC; 83735-TC; 84100-TC; 84300-TC; 84484-TC; 85025-TC; 85027-TC; 85652-TC; 85730-TC; 86850-TC; 86921-TC; 87040-TC; 87070-TC; 87081-TC; 87086-TC; 87186-TC; A4216; A6253; A6403; G0378; J0696; J1644; J1815; J2020; J2185; J2543; J2916; J3370; J3475; J7030; J7060; P9047; Q0163